=== PATIENT | male | born 1955 | race Caucasian/White ===

== ENCOUNTER 2022-07-17 07:05 | Emergency (ER) | payer MEDICARE, SELFPAY ==
[2022-07-17 07:13] VITALS: BP 200/92; PULSE 61; RESP 20; TEMP 36.6; O2SAT 98; BMI 24.4
--- NOTE | 2022-07-17 07:19 | ED_ITS ---
HPI - Abdominal Pain General Chief Complaint: Abdominal Pain Stated Complaint: BLOOD IN STOOL Time Seen by Provider: 07/17/22 07:19 Source: patient Mode of arrival: walk-in Limitations: no limitations History of Present Illness HPI narrative: Patient presents to emergency department complaining of suprapubic pain and cramping. He states he noticed some suprapubic pain and cramping last night. Patient has a history of bladder cancer status post surgeries for which he has urinary retention and he self At home. He waited until the morning because he thought that he had to urinate to self catheter himself And he still continued to have the cramping so he used the bathroom and had bright red blood per rectum. She states tissue was completely saturated at least if he had cut his hand and put a tissue on it. He denies any dizziness, palpitations, or weakness. He denies any chest pain, shortness of breath. Denies any fever, chills, or cough. He has never had a colonoscopy. He does have a history of hemorrhoids but has never had bleeding per rectum. He has not taking anything at home. He does not take any blood thinners. He denies any nausea, or vomiting. Related Data Home Medications Medication Instructions Recorded Confirmed folic acid 1 mg tablet 1 mg PO DAILY 07/17/22 07/17/22 levothyroxine 88 mcg tablet 88 mcg PO DAILY 07/17/22 07/17/22 rosuvastatin 10 mg tablet 10 mg PO DAILY 07/17/22 07/17/22 Previous Rx's Medication Instructions Recorded lisinopril 20 mg tablet 20 mg PO DAILY #30 tabs 07/17/22 Allergies Allergy/AdvReac Type Severity Reaction Status Date / Time No Known Drug Allergies Allergy Verified 07/17/22 07:12 Review of Systems ROS Status of ROS 10 or more systems reviewed and unremarkable except as noted in history and below [facility] Medical History (Updated 07/17/22 @ 11:48 by Adeola Olmstead MD) Social History Smoking status: Former smoker Exam Narrative Exam Narrative: Nurses notes and vital signs reviewed and patient is not hypoxic. General: Nontoxic, Well-appearing and in no apparent distress. Skin: Warm, dry, no pallor noted. No Rash Head: Normocephalic, atraumatic. Neck: Supple, non-tender. Eye: Pupils are equal, round and EOMI. No scleral icterus. Ears, Nose, Mouth, and Throat: TM clear, no posterior oropharynx erythema or nasal mucosal hypertrophy, uvula is mid-line Oral mucosa is moist Cardiovascular: Regular Rate and Rhythm without murmur, gallop or rub. Respiratory: No accessory muscle use or respiratory distress. Lungs are clear to auscultation, no wheezing, rales or rhonchi Chest Wall: no tenderness Back: No midline thoracic or lumbar vertebral tenderness. No CVA tenderness Musculoskeletal: normal ROM, no calf or popliteal tenderness, no lower extremity edema/swelling GI: Abdomen is soft, non-distended. Normal bowel sounds. No masses appreciated. mild llq tenderness to palpation. No rebound, guarding, or rigidity noted. Neurological: A&O x4. No cranial nerve dysfunction observed. No truncal ataxia. Moves all extremities. Sensation intact. Psychiatric: Cooperative and interactive. Normal mood and affect. Constitutional Vital Signs - 24 hr 07/17/22 07:13 Temperature 97.9 F Pulse Rate [Monitor] 61 Respiratory Rate 20 Blood Pressure [Right Arm] 200/92 H Pulse Oximetry 98 Oxygen Delivery Method Room Air Course Vital Signs Vital signs: Vital Signs Temperature 97.9 F 07/17/22 07:13 Pulse Rate 61 07/17/22 07:13 Respiratory Rate 20 07/17/22 07:13 Blood Pressure 200/92 H 07/17/22 07:13 Pulse Oximetry 98 07/17/22 07:13 Oxygen Delivery Method Room Air 07/17/22 07:13 Temperature 97.9 F 07/17/22 07:13 Pulse Rate 61 07/17/22 07:13 Respiratory Rate 20 07/17/22 07:13 Blood Pressure 200/92 H 07/17/22 07:13 Pulse Oximetry 98 07/17/22 07:13 Oxygen Delivery Method Room Air 07/17/22 07:13 MDM - Abdominal Pain MDM Narrative Medical decision making narrative: Discussed with patient the need to follow through with a colonoscopy. Blood work and CT scan were ordered. pt is not requiring any analgesics at this time. he has declined. . Discussed with patient. Patient is aware that he has an aneurysm. He states she's never had high blood pressure before and does not take any thing for hypertension. He will be started on lisinopril 20 mg by mouth daily and is advised follow-up with primary care doctor to have his blood pressure rechecked and discuss his aneurysm. Patient is also advised to follow up with primary care doctor and referral for surgeon or gastrointestinal for a colonoscopy. At this time the patient is without objective evidence of an acute process requiring hospitalization or inpatient management. The patient has remained hemodynamically stable. No additional indication for emergent studies at this time. I answered all questions. Discussed discharge instructions including standard anticipatory guidance and what should prompt a return to the emergency department, including if they get worse are not getting better or develops any new or concerning symptoms. I've given them specific time frame in which to follow-up, and who to follow-up with. The patient demonstrates understanding. Patient is nontoxic and stable for discharge with outpatient follow-up. This note was created with the assistance of a speech recognition program. Although the intention is to generate documents that actually reflects the content of the visit, no guarantees can be provided that every mistake has been identified and corrected by editing. Differential Diagnosis Differential diagnosis: Likely abdominal pain, diverticulitis, pancreatitis and small bowel obstruction Lab Data Attestation: I reviewed the patient's lab results. Labs: Lab Results 07/17/22 07/17/22 07/17/22 Range/Units 07:28 08:10 08:25 WBC 6.5 (4.0-11.0) 10^3/uL RBC 4.53 L (4.70-6.10) 10^6/uL Hgb 14.5 (14.0-18.0) g/dL Hct 43.1 (42.0-54.0) % MCV 95.1 H (80.0-94.0) fL MCH 32.0 (25.9-34.0) pg MCHC 33.6 (29.9-35.2) g/dL RDW 13.6 (11.0-15.0) % Plt Count 231 (150-450) 10^3/uL MPV 10.4 (9.5-13.5) fL Neut % (Auto) 52.3 (43.0-75.0) % Lymph % (Auto) 35.5 (20.5-60.0) % [place] % (Auto) 9.2 (1.7-12.0) % Eos % (Auto) 2.2 (0.9-7.0) % Baso % (Auto) 0.6 (0.2-2.0) % Neut # (Auto) 3.4 (1.4-6.5) 10^3/uL Lymph # (Auto) 2.3 (1.2-3.8) 10^3/uL [place] # (Auto) 0.6 (0.3-0.8) 10^3/uL Eos # (Auto) 0.1 (0.0-0.7) 10^3/uL Baso # (Auto) 0.0 (0.0-0.1) 10^3/uL Abs Immat Gran (auto) 0.01 (0.00-0.03) 10^3/uL Imm/Tot Granulo (auto) 0.2 (0.0-0.5) % Sodium 138 (136-145) mmol/L Potassium 4.2 (3.5-5.1) mmol/L Chloride 102 (98-107) mmol/L Carbon Dioxide 25.9 (21.0-32.0) mmol/L Anion Gap 14.3 BUN 16.0 (7.0-18.0) mg/dL Creatinine 0.96 (0.70-1.30) mg/dL Est GFR ( Amer) >60 (>=60) Est GFR (Non-Af Amer) >60 (>=60) BUN/Creatinine Ratio 16.7 Glucose 102 (74-106) mg/dL Lactate 1.9 (0.4-2.0) mmol/L Calcium 9.2 (8.5-10.1) mg/dL Total Bilirubin 0.5 (0.2-1.0) mg/dL AST 18 (15-37) U/L ALT 29 (16-63) U/L Alkaline Phosphatase 98 (46-116) U/L Total Protein 7.6 (6.4-8.2) g/dL Albumin 3.5 (3.4-5.0) g/dL Globulin 4.1 g/dL Albumin/Globulin Ratio 0.9 Lipase 271.0 (73.0-393.0) U/L Urine Color Lt. yellow (YELLOW) Urine Clarity Clear (CLEAR) Urine pH 6.0 (5.0-9.0) Ur Specific [place] <=1.005 A (1.005-1.025) Urine Protein Negative (NEG/TRACE) mg/dL Urine Glucose (UA) Negative (NEGATIVE) mg/dL Urine Ketones Negative (NEGATIVE) mg/dL Urine Occult Blood Moderate A (NEGATIVE) Urine Nitrite Negative (NEGATIVE) Urine Bilirubin Negative (NEGATIVE) Urine Urobilinogen 0.2 (0.2-1.0) EU/dL Ur Leukocyte Esterase Large A (NEGATIVE) Urine RBC 10-20 A (0-2) #/HPF Urine WBC 75-100 A (NONE SEEN) #/HPF Ur Squamous Epith Cells Few A (NONE/RARE) #/LPF Ur Transition Epith Cell Few A (NONE SEEN) #/LPF Urine Crystals None seen (None Seen) #/HPF Urine Bacteria Large A (NONE SEEN) #/HPF Urine Casts None seen (NONE SEEN) #/LPF Urine Mucus None seen (NONE SEEN) Ur Culture Indicated? Yes ECG Data Attestation: I personally reviewed and interpreted this ECG as follows: (EKG interpretation: Emergency Department physician interpretation. Normal sinus rhythm [id number]. Normal axis, RBBB normal intervals and no ST segment elevation or depression.) Discharge Plan Discharge Chief Complaint: Abdominal Pain Clinical Impression: Aneurysm of abdominal aorta, Hematochezia, Hypertension Patient Disposition: Home, Self-Care Time of Disposition Decision: 11:48 Mode of Transportation: Private Vehicle Prescriptions / Home Meds: New lisinopril 20 mg tablet 20 mg PO DAILY Qty: 30 0RF No Action folic acid 1 mg tablet 1 mg PO DAILY rosuvastatin 10 mg tablet 10 mg PO DAILY levothyroxine 88 mcg tablet 88 mcg PO DAILY Instructions: Rectal Bleeding (ED), Hypertension (ED) Additional Instructions: Take the medication as instructed. Follow-up with primary care doctor to discuss a referral with gastrointestinal for surgery for colonoscopy. 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 Return to the emergency department with symptoms consistent discussed. Stand Alone Forms: Portal Instructions Referrals: MARY SANTOS [Primary Care Provider] - 1 week Jamil Hudson MD [Physician] - 1 week
[2022-07-17 07:29] VITALS: PULSE 59
[2022-07-17 07:44] LABS: Basophils Percent Auto 0.6 % (0.2-2.0); Eosinophils Absolute Auto 0.1 10^3/uL (0.0-0.7); Eosinophils Percent Auto 2.2 % (0.9-7.0); Hematocrit 43.1 % (42.0-54.0); Hemoglobin 14.5 g/dL (14.0-18.0); Immature Granulocytes Abs Auto 0.01 10^3/uL (0.00-0.03); Immature Granulocytes Pct Auto 0.2 % (0.0-0.5); Lymphocytes Absolute Auto 2.3 10^3/uL (1.2-3.8); Lymphocytes Percent Auto 35.5 % (20.5-60.0); Mean Corpuscular HGB Conc 33.6 g/dL (29.9-35.2); Mean Corpuscular Volume 95.1 fL (80.0-94.0); Mean Platelet Volume 10.4 fL (9.5-13.5); Monocytes Absolute Auto 0.6 10^3/uL (0.3-0.8); Monocytes Percent Auto 9.2 % (1.7-12.0); Neutrophils Absolute Auto 3.4 10^3/uL (1.4-6.5); Neutrophils Percent Auto 52.3 % (43.0-75.0); Platelet Count 231 10^3/uL (150-450); Red Blood Count 4.53 10^6/uL (4.70-6.10); Red Cell Distribution Width 13.6 % (11.0-15.0); White Blood Count 6.5 10^3/uL (4.0-11.0)
[2022-07-17 07:52] LABS: Alanine Aminotransferase 29 U/L (16-63); Albumin Globulin Ratio 0.9; Albumin Level 3.5 g/dL (3.4-5.0); Alkaline Phosphatase 98 U/L (46-116); Anion Gap 14.3; Aspartate Amino Transferase 18 U/L (15-37); BUN Creatinine Ratio 16.7; Bilirubin Total 0.5 mg/dL (0.2-1.0); Calcium 9.2 mg/dL (8.5-10.1); Carbon Dioxide 25.9 mmol/L (21.0-32.0); Chloride 102 mmol/L (98-107); Estimated GFR (African America >60 (>=60); Estimated GFR (Non-African Ame >60 (>=60); Globulin 4.1 g/dL; Glucose 102 mg/dL (74-106); Potassium 4.2 mmol/L (3.5-5.1); Sodium 138 mmol/L (136-145); Total Protein 7.6 g/dL (6.4-8.2)
[2022-07-17 07:55] LABS: Lactate/Lactic Acid 1.9 mmol/L (0.4-2.0)
[2022-07-17] MEDS: 0.9 % SODIUM CHLORIDE 1,000 ML 100 ML IV (08:12)
[2022-07-17 08:23] LABS: Bilirubin Urine NEGATIVE (NEGATIVE); Blood Urine MODERATE (NEGATIVE); Clarity Urine CLEAR (CLEAR); Color Urine LT. YELLOW (YELLOW); Glucose Urine UA NEGATIVE (NEGATIVE); Ketones Urine NEGATIVE (NEGATIVE); Leukocyte Esterase Urine LARGE (NEGATIVE); Nitrite Urine NEGATIVE (NEGATIVE); Protein Urine NEGATIVE (NEG/TRACE); Specific Gravity Urine <=1.005 (1.005-1.025); Urobilinogen Urine 0.2 EU/dL (0.2-1.0)
[2022-07-17 08:25] LABS: Urine Microscopic Indicated YES
[2022-07-17 08:30] LABS: Bacteria Urine LARGE #/HPF (NONE SEEN); Mucus Urine NONE SEEN (NONE SEEN); WBC Urine 75-100 #/HPF (NONE SEEN)
[2022-07-17 08:31] LABS: Cast Seen? NONE SEEN #/LPF (NONE SEEN); Crystals Seen? None Seen #/HPF (None Seen); Squamous Epithelial Cell Urine FEW #/LPF (NONE/RARE); Transitional Epi Cells Urine FEW #/LPF (NONE SEEN); Urine Culture Indicated YES
--- NOTE | 2022-07-17 09:30 | CT_ITS ---
[address] [address] Patient Name: LASHAWN MONTENEGRO MRN: [id number] date: 1955 Sex: M Assigned Patient Location: ER Current Patient Location: ER Accession/Order Number: [id number] Exam Date: 07/17/2022 09:40 Report Date: 07/17/2022 10:17 At the request of: JASON WILDER Procedure: CT abdomen pelvis w con CT abdomen pelvis w con, 07/17/2022 9:40 AM EDT INDICATION: Abdominal pain. Blood in stool. COMPARISON: CT scan of the abdomen and pelvis 06/15/2020 TECHNIQUE: Axial images of the abdomen and pelvis were obtained after the administration of IV contrast with multiphase imaging. Multiplanar reformatted images were generated and reviewed as needed. Dose reduction techniques were achieved by using automated exposure control and/or adjustment of mA and/or kV according to patient size and/or use of iterative reconstruction technique. FINDINGS: Hypoventilatory change at the lung bases bilaterally. Subsegmental atelectasis/scar within the lingula. No effusion. The liver, gallbladder, pancreas, spleen and adrenals are unremarkable. Symmetric nephrograms without evidence of obstruction. Bilateral nonobstructing nephrolithiasis. No ureteral or urinary bladder calculi. Mild diffuse urinary bladder wall thickening secondary to muscular hypertrophy. No significant perivesicular fat stranding. TURP defect within a normal-sized prostate gland. Delayed imaging demonstrates normal course and caliber of the distal ureter bilaterally with visualization of bilateral ureteral jets and prompt emptying into the urinary bladder. Stable aneurysmal dilatation infrarenal abdominal aorta 3.5 cm. No bowel obstruction or acute focal inflammation. Normal appendix. No active extravasation of contrast visualized within the bowel lumen. The SMA and SMV are patent. No pneumatosis, pneumoperitoneum or ascites. No mesenteric or retroperitoneal lymphadenopathy. No acute fracture or dislocation. IMPRESSION: 1. No bowel obstruction or acute inflammation. No CT findings of active gastrointestinal hemorrhage. 2. Bilateral nonobstructing nephrolithiasis. 3. Stable 3.5 cm infrarenal abdominal aortic aneurysm. Electronically authenticated by: BARB INIGUEZ Date: 07/17/2022 10:17
[2022-07-17] MEDS: CEFTRIAXONE 1,000 MG in 0.9 % SODIUM CHLORIDE 50 ML 100 MG IV (10:34)
[2022-07-17] MEDS: LISINOPRIL 10 MG TABLET 20 MG PO (10:38)
--- NOTE | 2022-07-17 12:02 | ECG_ITS ---
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
[2022-07-17 12:06] VITALS: BP 190/81
== END 2022-07-17 12:07 | disposition home or self-care (01) ==
PROVIDERS: Emergency Provider Emergency Medicine; PCP Family Medicine
DX: I71.40 Abdominal aortic aneurysm, without rupture, unspecified (principal); I10 Essential (primary) hypertension; K92.1 Melena; Z85.51 Personal history of malignant neoplasm of bladder; R33.9 Retention of urine, unspecified; Z79.899 Other long term (current) drug therapy; Z79.890 Hormone replacement therapy; Z87.891 Personal history of nicotine dependence
CPT/HCPCS: 36415; 74177; 80053; 81003; 81015; 83605; 83690; 85025; 87086; 87150; 87186; 93005; 96374; 99285; Q9967

== ENCOUNTER 2022-07-19 00:54 | Emergency (ER) | payer MEDICARE, SELFPAY ==
[2022-07-19 00:57] VITALS: BP 173/93; PULSE 66; RESP 32; O2SAT 98; BMI 24.5
--- NOTE | 2022-07-19 01:29 | XR_ITS ---
The [place] [id number] Patient Name: LASHAWN MONTENEGRO MRN: [id number] date: 1955 Sex: M Assigned Patient Location: ER Current Patient Location: ER Accession/Order Number: [id number] Exam Date: 07/19/2022 01:43 Report Date: 07/19/2022 02:45 At the request of: ANURADHA CARSON Procedure: XR chest 1V EXAM: XR chest 1V HISTORY: shortness breath COMPARISON: CT chest 02/07/2022 TECHNIQUE: Single frontal view chest x-ray FINDINGS: Mild bilateral perihilar airway wall thickening. Mild bilateral centrilobular emphysema. No lung consolidation, large pleural effusions, pneumothorax, or acute bony abnormality. Cardiac size is unremarkable. IMPRESSION: Mild bilateral perihilar airway wall thickening reflect sequela of reactive airway inflammation or bronchitis in the proper clinical setting. Correlate clinically. Otherwise, no radiographic evidence for acute chest abnormality. Electronically authenticated by: NIKHIL BHAGAT Date: 07/19/2022 02:45
--- NOTE | 2022-07-19 01:31 | ECG_ITS ---
[facility] Test Date: 2022-07-19 Pat Name: LASHAWN MONTENEGRO Department: Room: - Gender: Male Energy Director: : 1955 Requested By: MARY SANTOS Order Number: [id number] Reading MD: EMELY KIMBROUGH Measurements Intervals [place] Rate: 58 P: 56 AR: 148 QRS: 60 QRSD: 124 T: 58 QT: 430 QTc: 428 Interpretive Statements 1100 Sinus rhythm 2450 Right bundle branch block 3514 Cannot rule out lateral myocardial infarction, age undetermined 9115 abnormal ECG Electronically Signed On 07-19-2022 7:18:34 EDT by EMELY KIMBROUGH
[2022-07-19 01:59] VITALS: PULSE 58
[2022-07-19 02:00] VITALS: O2SAT 100
[2022-07-19] MEDS: 0.9 % SODIUM CHLORIDE 1,000 ML 1000 ML IV (07:10)
--- NOTE | 2022-07-19 08:31 | CT_ITS ---
The [address] [address] Patient Name: LASHAWN MONTENEGRO MRN: [id number] date: 1955 Sex: M Assigned Patient Location: ER Current Patient Location: Accession/Order Number: [id number] Exam Date: 07/19/2022 08:47 Report Date: 07/19/2022 09:24 At the request of: JASON WILDER Procedure: CT angio chest EXAM: CT angio chest HISTORY: dyspnea, dimer COMPARISON: 03/10/2011 and radiograph of earlier today. TECHNIQUE: CT chest with intravenous contrast was performed with timing for the evaluation for pulmonary arteries. Multiplanar reformats were performed. MIP (maximum intensity projection) images or 3D post processing was performed. Dose reduction techniques were achieved by using automated exposure control and/or adjustment of mA and/or kV according to patient size and/or use of iterative reconstruction technique. FINDINGS: Lungs: No consolidation, mass, or effusion. Opacities of the lung bases have appearance most suggestive of atelectasis. Mild emphysema. Airways: Normal. Mediastinum: No adenopathy. Aorta: No aneurysm. Atherosclerotic disease is demonstrated. Cardiac: Coronary artery calcifications are demonstrated. Normal size. Pulmonary vasculature: Diagnostic opacification of the pulmonary arteries without evidence of pulmonary embolus. Borderline enlargement of the main pulmonary artery. Bones: There are degenerative findings without acute bony abnormality. Findings are suggestive of decreased bone density. Axilla: No adenopathy. Thyroid gland: No abnormality demonstrated on provided imaging. Soft tissues: Diminutive or absent. Upper abdomen: Unremarkable. Additional findings: None. IMPRESSION: 1. No evidence of pulmonary embolus or acute intrathoracic abnormality. 2. Unchanged emphysema. Electronically authenticated by: AUBREY WAITE Date: 07/19/2022 09:24
--- NOTE | 2022-07-19 10:00 | ED_ITS ---
HPI - SOB/Dyspnea General Chief Complaint: Shortness of Breath/Dyspnea Stated Complaint: SOB Time Seen by Provider: 07/19/22 06:15 Source: patient Mode of arrival: Wheelchair Limitations: no limitations Related Data Home Medications Medication Instructions Recorded Confirmed folic acid 1 mg tablet 1 mg PO DAILY 07/17/22 07/17/22 levothyroxine 88 mcg tablet 88 mcg PO DAILY 07/17/22 07/17/22 rosuvastatin 10 mg tablet 10 mg PO DAILY 07/17/22 07/17/22 Previous Rx's Medication Instructions Recorded lisinopril 20 mg tablet 20 mg PO DAILY #30 tabs 07/17/22 albuterol sulfate 90 mcg/actuation 2 inh inhalation Q4H PRN shortness 07/19/22 aerosol inhaler of breath or wheezing #8.5 grams Allergies Allergy/AdvReac Type Severity Reaction Status Date / Time No Known Drug Allergies Allergy Verified 07/17/22 07:12 [facility] Medical History (Updated 07/19/22 @ 09:46 by Adeola Olmstead MD) Social History Smoking status: Former smoker Exam Constitutional Vital Signs - 24 hr 07/19/22 00:57 07/19/22 02:00 Pulse Rate [Monitor] 66 Respiratory Rate 32 H Blood Pressure [Right Arm] 173/93 H Pulse Oximetry 98 100 Oxygen Delivery Method Room Air Room Air Course Vital Signs Vital signs: Vital Signs Pulse Rate 66 07/19/22 00:57 Respiratory Rate 32 H 07/19/22 00:57 Blood Pressure 173/93 H 07/19/22 00:57 Pulse Oximetry 98 07/19/22 00:57 Oxygen Delivery Method Room Air 07/19/22 00:57 Pulse Rate 66 07/19/22 00:57 Respiratory Rate 32 H 07/19/22 00:57 Blood Pressure 173/93 H 07/19/22 00:57 Pulse Oximetry 100 07/19/22 02:00 Oxygen Delivery Method Room Air 07/19/22 02:00 MDM - SOB/Dyspnea MDM Narrative Medical decision making narrative: Patient signed out to me by Dr. Gomez awaiting CT scan. Patient came in complaining of shortness of breath last night at around midnight by the time he was seen by Dr. Gomez all the symptoms had resolved. He states he had this several months ago and it went away. He denied any cough. He states he was a smoker and thinks he could've been told before that he had chronic obstructive pulmonary disease but has never been on any inhalers. Patient has an appointment with his primary care doctor on Thursday. Call of the laboratory studies and radiologic study results were discussed with the patient. Patient will be given a prescription for an albuterol inhaler. stated that he is currently taking Bactrim for the urinary tract infection. At this time the patient is without objective evidence of an acute process requiring hospitalization or inpatient management. The patient has remained hemodynamically stable. No additional indication for emergent studies at this time. I answered all questions. Discussed discharge instructions including standard anticipatory guidance and what should prompt a return to the emergency department, including if they get worse are not getting better or develops any new or concerning symptoms. I've given them specific time frame in which to follow-up, and who to follow-up with. The patient demonstrates understanding. Patient is nontoxic and stable for discharge with outpatient follow-up. This note was created with the assistance of a speech recognition program. Although the intention is to generate documents that actually reflects the content of the visit, no guarantees can be provided that every mistake has been identified and corrected by editing. Differential Diagnosis Differential diagnosis: Likely acute exacerbation of chronic obstructive airways disease, congestive heart failure, community acquired pneumonia and pulmonary embolism Lab Data Attestation: I reviewed the patient's lab results. ECG Data Attestation: I personally reviewed and interpreted this ECG as follows: Discharge Plan Discharge Chief Complaint: Shortness of Breath/Dyspnea Clinical Impression: Emphysema lung Patient Disposition: Home, Self-Care Time of Disposition Decision: 09:45 Condition: Good Mode of Transportation: Private Vehicle Prescriptions / Home Meds: New albuterol sulfate 90 mcg/actuation HFA aerosol inhaler 2 inh inhalation Q4H PRN (Reason: shortness of breath or wheezing) Qty: 8.5 0RF No Action folic acid 1 mg tablet 1 mg PO DAILY rosuvastatin 10 mg tablet 10 mg PO DAILY levothyroxine 88 mcg tablet 88 mcg PO DAILY lisinopril 20 mg tablet 20 mg PO DAILY Qty: 30 0RF Instructions: Emphysema (ED) Stand Alone Forms: Portal Instructions Referrals: MARY SANTOS [Primary Care Provider] - 1 week
== END 2022-07-19 10:06 | disposition home or self-care (01) ==
PROVIDERS: Emergency Provider Emergency Medicine; PCP Family Medicine
DX: J43.9 Emphysema, unspecified (principal); Z79.899 Other long term (current) drug therapy; Z79.890 Hormone replacement therapy; Z87.891 Personal history of nicotine dependence
CPT/HCPCS: 71045; 71275; 93005; 99285; Q9967

== ENCOUNTER 2022-11-14 14:33 | Outpatient (OUT) | payer MEDICARE, SELFPAY ==
[2022-11-14 15:09] LABS: Basophils Percent Auto 0.5 % (0.2-2.0); Eosinophils Absolute Auto 0.2 10^3/uL (0.0-0.7); Eosinophils Percent Auto 2.7 % (0.9-7.0); Hematocrit 41.4 % (42.0-54.0); Hemoglobin 14.1 g/dL (14.0-18.0); Immature Granulocytes Abs Auto 0.02 10^3/uL (0.00-0.03); Immature Granulocytes Pct Auto 0.3 % (0.0-0.5); Lymphocytes Absolute Auto 2.9 10^3/uL (1.2-3.8); Lymphocytes Percent Auto 38.8 % (20.5-60.0); Mean Corpuscular HGB Conc 34.1 g/dL (29.9-35.2); Mean Corpuscular Hemoglobin 33.7 pg (25.9-34.0); Mean Corpuscular Volume 98.8 fL (80.0-94.0); Mean Platelet Volume 10.9 fL (9.5-13.5); Monocytes Absolute Auto 0.6 10^3/uL (0.3-0.8); Neutrophils Absolute Auto 3.7 10^3/uL (1.4-6.5); Neutrophils Percent Auto 49.7 % (43.0-75.0); Platelet Count 203 10^3/uL (150-450); Red Blood Count 4.19 10^6/uL (4.70-6.10); Red Cell Distribution Width 14.1 % (11.0-15.0); White Blood Count 7.4 10^3/uL (4.0-11.0)
[2022-11-14 15:45] LABS: Alanine Aminotransferase 27 U/L (16-63); Albumin Level 3.7 g/dL (3.4-5.0); Alkaline Phosphatase 96 U/L (46-116); Anion Gap 12.1; Aspartate Amino Transferase 15 U/L (15-37); Bilirubin Total 0.5 mg/dL (0.2-1.0); Carbon Dioxide 29.3 mmol/L (21.0-32.0); Chloride 103 mmol/L (98-107); Chol HDL Ratio 2.3; Cholesterol 154 mg/dL (<=200); Estimated GFR (African America >60 (>=60); Estimated GFR (Non-African Ame >60 (>=60); Globulin 3.8 g/dL; Glucose 96 mg/dL (74-106); HDL Cholesterol 66 mg/dL (40-60); Potassium 4.4 mmol/L (3.5-5.1); Sodium 140 mmol/L (136-145); Thyroid Stimulating Hormone 1.378 uIU/mL (0.358-3.740); Total Protein 7.5 g/dL (6.4-8.2); Triglycerides 94 mg/dL (<=150); VLDL CHOLESTEROL 18.8 mg/dL
== END 2022-11-14 14:34 | disposition home or self-care (01) ==
LOC: LAB 14:34
PROVIDERS: PCP Family Medicine; Visit Provider Nurse Practitioner Acute Care
DX: I71.40 Abdominal aortic aneurysm, without rupture, unspecified (principal); E03.8 Other specified hypothyroidism
CPT/HCPCS: 36415; 80053; 80061; 84443; 85025

== ENCOUNTER 2022-12-02 10:46 | Outpatient (OUT) | payer MEDICARE, SELFPAY | END 2022-12-02 10:47 | disposition home or self-care (01) | LOC: LAB 10:53 | PROVIDERS: PCP Family Medicine | DX: R30.9 Painful micturition, unspecified (principal) | CPT/HCPCS: 87086 ==

== ENCOUNTER 2023-11-20 07:35 | Outpatient (OUT) | payer MEDICARE, SELFPAY ==
--- OUTSIDE RECORDS SUMMARY | 2023-11-20 07:39 | XMS_ITS | CCD ---
Author Organization [facility] Care Team Providers [facility] F[facility] Specialist Name Role Phone Mary Santos Primary Care Provider [phone] HUEY ALVARADO Admitting Unavailable HUEY ALVARADO Attending Unavailable MARY SANTOS Primary Care Unavailable MD Huey Alvarado Attending Provider JACEK, DR STEWART Consulting Unavailable MARKER, DR LAM Attending Unavailable MARKER, DR LAM Admitting Unavailable TOM, DR HERNANDEZ Primary Care Unavailable MARKER, DR LAM Consulting Unavailable LORIE DOUGLAS Consulting Unavailable ANURADHA CARSON Attending Unavailable TOM, DR HERNANDEZ Primary Care Unavailable ANURADHA CARSON Admitting Unavailable ANURADHA CARSON Consulting Unavailable CRISTY, DR PHIL Moseley Consulting Unavailabl e DIONNEECK, DR PHIL Moseley Attending Unavailabl e REINECK, DR PHIL Moseley Admitting Unavailabl e TOM, DR HERNANDEZ Primary Care Unavailable FARA, DR STEFFEN Lawton Consulting Unavailable CAITIE JOYA Consulting Unavailable JACEK, DR STEWART Attending Unavailable TOM, DR HERNANDEZ Primary Care Unavailable JACEK, DR STEWART Admitting Unavailable FARA, DR STEFFEN Lawton Consulting Unavailable CAROLE BENNETT Attending Unavailable CAROLE BENNETT Admitting Unavailable TOM, DR HERNANDEZ Primary Care Unavailable CAROLE BENNETT Consulting Unavailable MD Eldon Castrejon Attending Provider [phone] MD Mary Santos Primary Care Provider [phone] MARGARITO GARIBAY Attending Unavailable Eldon Castrejon Admitting Unavailable Eldon Castrejon Attending Unavailable Mary Santos Primary Care Unavailable Huey Alvarado Admitting Unavailable Huey Alvarado Attending Unavailable Mary Santos Primary Care Unavailable Steffen Ng Consulting Unavailable Huey Alvarado Attending Unavailable Huey Alvarado Admitting Unavailable MARY SANTOS Primary Care Unavailable Huey Alvarado Attending Unavailable MARY SANTOS Primary Care Unavailable Huey Alvarado Admitting Unavailable Huey Alvarado Attending Unavailable Huey Alvarado Admitting Unavailable MARY SANTOS Primary Care Unavailable Huey Alvarado Attending Unavailable Huey Alvarado Admitting Unavailable MARY SANTOS Primary Care Unavailable Huey Alvarado Attending Unavailable MARY SANTOS Primary Care Unavailable Huey Alvarado Admitting Unavailable Mary Santos MD Primary Care Provider Mary Santos MD Unavailable MARY SANTOS Attending Unavailable MARY SANTOS Attending Unavailable MARY SANTOS Attending Unavailable Allergies Allergy Classification Reported Allergen(s) Allergy Type Date of Onset Reaction(s) Facility Unclassified (1 source) Seasonal allergy Propensity to adverse reactions to substance 1 [facility] (2 sources) Octacosanol Drug Intolerance 1 [facility] Medications Current Medications Medication Drug Class(es) Dates Sig (Normalized) Sig (Original) [id number] actuat albuterol 0.09 mg/actuat metered dose inhaler (2 sources) beta2-Adrenergic Agonist Start: 07-19-2022 take 2 puff(s) by mouth every four hours as needed for wheezing albuterol HFA 90 mcg/act inhaler INHALE 2 PUFFS BY MOUTH EVERY 4 HOURS NEEDED FOR SHORTNESS OF BREATH OR WHEEZING 07/19/2022 Active aspirin 81 mg delayed release oral tablet (4 sources) Platelet Aggregation Inhibitor, Nonsteroidal Anti-inflammatory Drug Start: 09-30-2022 take 1 tablet by mouth once daily Aspirin (Aspir-81) 81 mg Tablet,Delayed Release (Dr/Ec) Active 81 MG PO Daily September 30, 2022 12:00am take 1 tablet by mouth once mickey y aspirin 81 MG chewable tablet Take 81 mg by mouth daily 0 Active calcium chloride 0.0014 meq/ml / potassium chloride 0.004 meq/ml / sodium chloride 0.103 meq/ml / sodium lactate 0.028 meq/ml injectable solution (1 source) Start: 07-23-2020 lactated ringe rs infusion ferrous sulfate (1 source) Ferrous Sulfate (IRON PO) Take by mouth 0 Active fexofenadine (1 source) Histamine-1 Receptor Antagonist FEXOFENADINE HCL PO Take by mouth 0 Active folic acid 1 mg oral tablet (4 sources) Start: 05-11-2023 take 1 tablet by mouth once daily folic acid (Folvite) 1 MG tablet Indications: Vitamin B12 deficiency Take 1 tablet (1,000 mcg) by mouth Daily 100 tablet 3 05/11/2023 Active Start: 09-30-2022 take 1 mg by mouth once daily Folic Acid Active 1 MG PO Daily September 30, 2022 12:00am FOLIC ACID PO Ta ke by mouth 0 Active folic acid 0.4 mg / vitamin b12 1 mg sublingual tablet (1 source) Vitamin B12 Start: 09-30-2022 Vitamin D06-Enbhd Acid Active 1 LOZENGE SUBLINGUAL Daily September 30, 2022 12:00am hydroCHLOROthiazide 25 mg oral tablet (2 sources) Thiazide Diuretic Start: 11-10-2023 End: 11-09-2024 take 1 tablet by mouth once daily hydroCHLOROthiazide (HYDRODiuril) 25 MG tablet Indications: Benign essential hypertension (CMS/HCC) Take 1 tablet (25 mg) by mouth Daily 30 tablet 11 11/10/2023 11/09/2024 Active 1 ml HYDROmorphone hydrochloride 1 mg/ml cartridge (2 sources) Opioid Agonist Start: 07-23-2020 HYDROmorphone (DILAUDID) injection 0.5 mg Start: 07-23-2020 HYDROmorphone (DILAUDID) injection 0.25 mg hyoscyamine sulfate 0.125 mg sublingual tablet (1 source) Start: 07-23-2020 End: 07-28-2020 Hyoscyamine Sulfate SL (LEVSIN/SL) 0.[address] 0.125 mLs under the tongue 3 times daily as needed (bladder spasms) 120 each 0 07/23/2020 07/28/2020 Active levothyroxine sodium 0.088 mg oral tablet (4 sources) l-Thyrox ine Start: 10-19-2023 take 1 tablet by mouth once daily before mealtime levothyroxine (Synthroid, Levoxyl) 88 MCG tablet Indications: Postablative hypothyroidism (CMS/HCC) TAKE 1 TABLET BY MOUTH ONCE DAILY IN THE MORNING BEFORE MEAL(S) 90 tablet 10/19/2023 Active Start: 09-30-2022 take 88 ug by mouth once daily Levothyroxine Active 88 MCG PO Daily September 30, 2022 12:00am LEVOTHYROXINE SO DIUM PO Take 88 mcg by mouth 0 Active lisinopril 20 mg oral tablet (4 sources) Angiotensin Converting Enzyme Inhibitor Start: 11-10-2023 End: 02-08-2024 take 2 tablets by mouth once daily as needed for hypertension lisinopril 20 MG tablet Indications: Benign essential hypertension (CMS/HCC) Take 2 tablets (40 mg) by mouth Daily as needed (Hypertension) 180 tablet 11/10/2023 02/08/2024 Active End: 11-10-2023 take 1 tablet by mouth every twenty-four hours as needed lisinopril 20 MG tablet Take 1 tablet by mouth Daily as needed (Hypertension). 11/10/2023 Discontinued (Reorder) rosuvastatin calcium 10 mg oral tablet (4 sources) HMG-CoA Reductase Inhibitor Start: 12-11-2022 take 1 tablet by mouth in the morning rosuvastatin (Crestor) 10 MG tablet Indications: Carotid artery disease, unspecified laterality, unspecified type (CMS/HCC) Take 1 tablet (10 mg) by mouth in the morning. 100 tablet 3 12/11/2022 Active Start: 09-30-2022 take 10 mg by mouth once daily Rosuvastatin Active 10 MG PO Daily September 30, 2022 12:00am take 1 tablet by wilfredo th once daily rosuvastatin (CRESTOR) 10 MG tablet Take 10 mg by mouth daily 0 Active vitamin b12 1 mg oral tablet (3 sources) Vitamin B12 take 1 tablet by mouth in the morning cyanocobalamin (Vitamin B-12) 1000 MCG tablet Take 1,000 mcg by mouth in the morning. Active Cyanocobalamin ( VITAMIN B 12 PO) Take by mouth 0 Active Completed/Discontinued Medications Medication Drug Class(es) Dates Sig (Normalized) Sig (Original) FLUTICASONE PROPIONATE, INHAL, IN (1 source) End: 07-23-2020 FLUTICASONE PROPIONATE, INHAL, IN Inhale into the lungs 0 07/23/2020 Discontinued (LIST CLEANUP) Problems Active Problems Problem Classification Problem Date Documented Date Episodic/Chronic Alcohol-related disorders (2 sources) Alcohol abuse; Translations: [Alcohol abuse, uncomplicated] Onset: 07-17-2022 07-17-2022 Chronic Aortic; peripheral; and visceral artery aneurysms (8 sources) Abdominal aortic aneurysm without rupture; Translations: [Abdominal aortic aneurysm, without rupture, unspecified (CMS/HCC)] Onset: 06-05-2021 11-10-2023 Chronic Cancer of bladder (6 sources) Malignant tumor of urinary bladder; Translations: [Malignant neoplasm of bladder, unspecified] Onset: 07-17-2022 11-10-2023 Chronic Cancer of bladder (1 source) Personal history of malignant neoplasm of bladder; Translations: [PERSONAL HX MALIG NEOPLASM BLADDER] Onset: 03-14-2022 Episodic Chronic obstructive pulmonary disease and bronchiectasis (4 sources) Pulmonary emphysema; Translations: [Emphysema, unspecified] Onset: 07-21-2022 11-10-2023 Chronic Complications of surgical procedures or medical care (2 sources) Postablative hypothyroidism; Translations: [Postprocedural hypothyroidism] Onset: 07-17-2022 07-17-2022 Chronic Conduction disorders (2 sources) Unspecified right bundle-branch block; Translations: [Unspecified right bundle-branch block] Onset: 11-14-2022 Chronic Essential hypertension (4 sources) Benign essential hypertension; Translations: [Essential (primary) hypertension] Onset: 12-23-2022 11-10-2023 Chronic Genitourinary symptoms and ill-defined conditions (4 sources) Retention of urine, unspecified; Translations: [RETENTION OF URINE UNSPECIFIED] Onset: 03-13-2022 Episodic Heart valve disorders (2 sources) Mitral valve disorder; Translations: [Rheumatic mitral valve disease, unspecified] Onset: 07-17-2022 07-17-2022 Chronic Malaise and fatigue (2 sources) Fatigue; Translations: [Chronic fatigue, unspecified] Onset: 07-17-2022 07-17-2022 Chronic Menopausal disorders (1 source) Hormone replacement therapy; Translations: [HORMONE REPLACEMENT THERAPY] Onset: 02-11-2022 Episodic Other aftercare (1 source) alf (current) use of aspirin; Translations: [PENITENTIARY CURRENT USE OF ASPIRIN] Onset: 02-11-2022 Episodic Other aftercare (1 source) Other terminal operator (current) drug therapy; Translations: [OTH PENITENTIARY CURRENT DRUG THERAPY] Onset: 02-11-2022 Episodic Other and ill-defined heart disease (2 sources) Heart disease; Translations: [Heart disease, unspecified] Onset: 07-17-2022 07-17-2022 Chronic Other circulatory disease (4 sources) Disorder of artery; Translations: [Disorder of arteries and arterioles, unspecified] Onset: 07-17-2022 11-10-2023 Chronic Other hematologic conditions (2 sources) Macrocytosis; Translations: [Other specified diseases of blood and blood-forming organs] Onset: 07-17-2022 07-17-2022 Chronic Other hematologic conditions (2 sources) Macrocytosis - no anemia; Translations: [Other specified diseases of blood and blood-forming organs] Onset: 07-17-2022 07-17-2022 Chronic Other lower respiratory disease (3 sources) Shortness of breath; Translations: [SHORTNESS OF BREATH] Onset: 02-07-2022 Episodic Other lower respiratory disease (1 source) Dyspnea, unspecified; Translations: [DYSPNEA UNSPECIFIED] Onset: 02-11-2022 Episodic Other upper respiratory disease (2 sources) Seasonal allergic rhinitis; Translations: [Other seasonal allergic rhinitis] Onset: 07-17-2022 07-17-2022 Chronic Peripheral and visceral atherosclerosis (4 sources) Atherosclerosis of aorta; Translations: [Atherosclerosis of aorta] Onset: 11-10-2023 11-10-2023 Chronic Residual codes; unclassified (1 source) Other specified postprocedural states; Translations: [OTH SPECIFIED POSTPROCEDURAL STATES] Onset: 03-14-2022 Episodic Thyroid disorders (4 sources) Other specified hypothyroidism; Translations: [Acquired hypothyroidism] Onset: 07-17-2022 Chronic Unclassified (3 sources) ABDOMINAL AA W/O RUPTURE UNSPCIFIED; Translations: [ABDOMINAL AA W/O RUPTURE UNSPCIFIED] Onset: 12-21-2021 Unclassified (1 source) Abdominal aortic aneurysm, without rupture, unspecified; Translations: [Abdominal aortic aneurysm, without rupture, unspecified] Onset: 11-14-2022 Unclassified (1 source) Encounter for screening for malignant neoplasm of colon; Translations: [Encounter for screening for malignant neoplasm of colon] Onset: 09-30-2022 Past or Other Problems Problem Classification Problem Date Documented Da te Episodic/Chronic Calculus of urinary tract (2 sources) Kidney stone; Translations: [Calculus of kidney] Onset: 07-18-2022 07-18-2022 Episodic Nonspecific chest pain (2 sources) Chest discomfort; Translations: [Other chest pain] Onset: 06-05-2021 05-11-2023 Episodic Other diseases of kidney and ureters (2 sources) Disorder of kidney and/or ureter; Translations: [Disorder of kidney and ureter, unspecified] Onset: 07-17-2022 07-17-2022 Episodic Other gastrointestinal disorders (2 sources) Constipation; Translations: [Constipation, unspecified] Onset: 07-17-2022 07-17-2022 Episodic Other lower respiratory disease (2 sources) Dyspnea; Translations: [Dyspnea, unspecified] Onset: 06-05-2021 05-11-2023 Episodic Other nutritional; endocrine; and metabolic disorders (2 sources) H/O: hyperthyroidism; Translations: [Personal history of other endocrine, nutritional and metabolic disease] Onset: 01-30-2016 10-01-2022 Episodic Screening and history of mental health and substance abuse codes (3 sources) Personal history of nicotine dependence; Translations: [Ex-smoker] Onset: 02-11-2022 07-21-2022 Episodic Substance-related disorders (5 sources) Nicotine dependence, cigarettes, uncomplicated; Translations: [Smoker] Onset: 03-14-2022 Resolved: 11-10-2023 07-21-2022 Chronic Syncope (2 sources) Syncope; Translations: [Syncope and collapse] Onset: 06-05-2021 05-11-2023 Episodic Unclassified (1 source) ABDOMINAL AA W/O RUPTURE UNSPCIFIED; Translations: [ABDOMINAL AA W/O RUPTURE UNSPCIFIED] Onset: 12-17-2021 Unclassified (1 source) Abdominal aortic aneurysm, without rupture, unspecified; Translations: [Abdominal aortic aneurysm, without rupture, unspecified] Onset: 11-14-2022 Results Test Name Value Interpretation Reference Range Facility Coding Summaryon 12-11-2022 Coding Summary HTMLBase 64 LkletgdwBMx3dNl+PGhlY WQ+XW8MZVWlK79ljSMcmU 1lM5YPLKuWZeweXBSHUJj RGdZzqwIhMA9oqBJmFTHv IC8+KA1iPFQjYtbsoYYzb 4W8hBV6A46nnl4pVKhekU V7UNHwKyVmuraca2cpkLs 6IDcuNmluOyBt ENZmpM98FQV3lK83Qq61r MVxgQHun4nvnUv5JjHzMH WlMBZ3tFzrCDafr9SeEIQ oS88ezVZbr0Q5 NWIccUbruAMqTnNrhGW9v T7zERpzwifvb9mgpudaJl v9yv59mCOyu1N2lND6M6V cvpU9DFQlyDKv RypfmGYHuD7qkvlfd6yfi jgqKgKxNHQbHHa1HKr6NC FbsNckFwTrVX30FAU6GHW mfhCxR3BqZSAv bPuqOcG7h8L3Zk4WC4MZA gunP3KFRMXURSzzeJZ+PC 25ta70X8OdVsfaFen3BUY iDBS8lQF5tP0o RKMhTTahf4S1kKL6Z7Lii nDsoe1it0djVGUlRTemE1 2dmYJwv0N7MFCddHS9ZOC rqVqiCqAfpF71 Oyc+NSBzwQohn4GzLutjs 1zrm6iwkIm2MoyeUCDpbh JofLliFHM5o6FiRu5wLZM kvZE1vRF9nT1v MfByHqR1XYdbF020GpTqy GRiAouhN82oX9UbcIA+PH IeNqn7RIXiyZuaQY9oB0K hZGRpbmctbGVm rAgdFQ6uPGTqkmppILMvm H2lJJUcH6r7XjKgCpO5CB kcQ7ZeAOFwqgfpLp10yE4 hTeFpRlT1VOvb L9MhpzM7OBAloBMkGBvaQ OL5Z58ie2P6IZYcHYQyJZ E8wHY0pM7cbOmpevzekAH mdDsgdmVydGlj DPaaLJewS586YJSqiPzwX kNvZGluZyBEYXRlOiAgMT EvMDIvMjAyMzwvdGQ+PHR bXPS3pFzhPCDb wIDmEQpyUl8gvNeggAkcW W3fLTHgckxbGUSunF8xIC YxwUIqpAyaSD8sCXRwujt gb884EqCbGDQ3 ULGqiVUcM6MqyX2xUcCxN ZEfQGZsD6TfvMVrWPnuG9 07UQxxChN1OPRchoWjY8W sLWFsaWduOiB0 u5B3Vq0Ls8RblhorM9Sxq UReNhHxEslnNHa8B3QtCd wvdHI+HJ71CANwKB24PDv 4ZFG9sEoxVVmk XAOuA2TglI7lMhCwLQBoR GRkOyc+PHRhYmxlIHdpZH RoPScxMDAlJyBzdHlsZT0 aUc2iPTQoFYDg zKannDUvAbLat3nwXCIuL RvxZQ2xeCllA6EfqYZ4MS Lux1z4Xt17N28sE2JwuRN +AWJvzDC6mHV6 cH5yXpGrSeA3XGnkQ493S fYwyVOhUjwpt6ujf4jbdX q9EiA9TGHomtJxdTwaFIS 3x9QeTc80U93t IHdpZHRoPSIxNSUiIHZhb Icwgv1izA8iUd3+PGNvbC W3yZC9vH1eNjXoQeD0ANe iY445DqPdkSVs Zoeyf9qbh0pjuDu2RnBzR VXhutEdqCkwOIC1r3MtGx 80C0NsaSafi8DfDzt3wx1 6hSFir8U0hWY1 G7ObYYMqhcltnVLmxVvhE X3hDWLytqieWLScsW8fOL KyP0l7GeRcXhN0MCybD3Z qnwC6BQUvgMQe BPSyrVDJyC3kiafss9isr trxSeDkDDWmHUc9ZFo4UK YgfYxfGbNkBZA9CaI1SXL 5iCBfdG3lfFrs pllycZ9dBzo+SQU0aZUin HSNXR3hInwojSN+PHRkIH J5tNpkNNmvFVLfxT6jGXU rL6s0KbYzBaH7 MZnkH0QzkdO0PZAmaQPcR PNlsYHYhF0xrriuj8zlmn nmAxRnFQHzBIr1MEu6MRG saWduOiBsZWZ0 SiU5RHH2aXNfyN2vkUtrp lpgiS9rZjh+QmlydGggRG H4GOh9R8TqSax1IVPjgPl cKP3fjPVwEHtn Ci3xhTzcyVaaJB3uJYXtg bwnl393JnVfh1ciDMNowZ UeXPodAEP9B83dw4X4YNE rWRGrUBO9nOZ5 iF7zdMuqrmfiwFNlzUynq wMlgGydXQxfRKckE632CJ FuaKwvExMaMRj2S3FaBzg 3CALilKcsOK1x vAWmIKpcZp6isYtefZkdI Y9gBPAyuhxzt222JgTya5 qvNGQwyZDvXBduGTP2P87 rh3G8GWRmQDLg JFW7eSY7iR1vzHyavkpdj GVmdDsgdmVydGljYWwtYW ujK692QIGvtQnxLqDobWo 9H9SoDqk5HMAu uDcbLZ2qpMYiUBzhLh1od XiutNelRL6yNRLqjukjy7 78QvXqk5acGPKmnPApRRb pJQI4U00ax5X0 RANuLUPhWII4eIO3oT8bf GlnbjogbGVmdDsgdmVydG teMAcqGBanK417OYYpnGv nPlBhdGllbnQg WPioKBk7E2BgRwmzjSI+P Z85DFVrXU59lOEfxOCqe4 vmvCs5NaLxFLXkFCQ6kJz xSGetx5YbDZAm H14foBCss1P1MTQniVzqz UAkTwIhaGN5gU3vEZmcik puc1ayastbLlvpk3rlid3 3kF30W75dISac ZHRoPSIzMCUiIHZhbGlnb w7jvV1bGo4+QGYlnIM1zQ P2eQ5gDSGeXnC8JOatX26 9InRvcCIvPjxj c5gws4uwoHl3MhV8BIDjt zClaVkeJZT5l1BhHu33D1 9sIHdpZHRoPSIyMCUiIHZ pyVmbja4xhB0k Ii8+VANqoPD2sAR5vD3oN mWiZsR0SYcaF194AsKbfQ NgAlluJ90tQ1AyrRC+PHR eZyr9SZZefVvr GZ3qeCQkYXlvVc4cIYY5N hQmSvMfWRojP6BrCCMskh mxuojbvZC6XKVcKAQofK5 4Qs0xiLnbWTFc sLVBmD4rqikgg4ffqqyxS kPoADWxZAe7DMg1HWEbtR amUpLfLPX1KcN4HKN6sRQ akG4blDcdezui iZ9xW4FnRLHdplljAe77i J6tArRuZqZ4XXvoLtz+Rk ATIJWRUXXEHK1RDcFDLX5 3TN24lMUpn5V6 mKN0Y5RlKIPejcvozgpnj ZV9OGSeUZUggY99rPWkWQ caEu0kd6O7f480FJZcZNC lcT49Dx0haLjq DARltPOZwC0didoir3nzf eshQhRhNGVoZGw6RTi3MO NabTugEbWgYKI3DwL9KDU 4wZXlwI9dcZda jemctR5kDud+MDcvMzAvM Ex1ZflmjTY+XUIzZRS0uQ vhHXsqTHSwsZ4oXGXaR7h 7ViRdUmI1CJgg A1KtQMJpqkntLh01dL6nZ qJyBbF3COytL5OmgzZ1UA NmoZVkOInmSMI6I74fa5T 7EUAsVLPjXMH3 sLE1xZ7hlDdjfbefeDXro DsgdmVydGljYWwtYWxpZ2 61TLBrwEqsSoZ2JQroPDQ yNF79KO97bIBc f0I6mSN2W9UsGCRodsgaq wdnrYG5NOFhVWOybK67hI RrFBdjMq7wj1T2s076QWS sXKObcW85Ed2r xZbaEYYksFYLnK7comvno 0gfokoePfVpYMAmNLc2NX y6ZYErlFnkQrQgCXW5DhJ 2IBZ2xGWivT0f tTxlwjoynU8hOcj+TUFMR TwvdGQ+VXHfZBD7aUwdLU oyUSRmmX5wNIIcU3i5VjY eCoP0JNwuW3Hh LHMxegumXy23jD6hXjJhD zL1DZdsG7UaziK7ADNtrG ByBAnpJWH7E91cd5P2UAO sJKQnWSH6xAU9 aL6voCfebcbvkCHssZoek eBjcHtiCLfpLZzwF183JV RvcDsnPkRheSBTdXJnZXJ 8GI96FL24I8Sk PjwvdGFibGU+PHRhYmxlI HdpZHRoPScxMDAlJyBzdH oiOZ8oAb8aHIExDGKijGp rvSLiFiFwq5tl BUUtXZqzSJ5ecKxjC3Qgo ZF9OBRfk9e1Az19I84jB1 JvdXA+KYBcqSL0vYN7iN2 kFfVtKeW9LAne Z488JuQqtHOxCkuyl7qoc 0hcsFh7PsJePWYrngBdlB jlCQU6a2PhOi52G54cBVi pZHRoPSIyMCUi GZMpeSgxmu1lgP0cPd1+P PKdbKD9jWI8kE2uYoXvRz B2VAakW849QzAplSGoSxq iV98vS0QdzDW+ VHIxGnd1VTYisUmhRG9tj IVzWBtgUh2iGYO8ZiUlBk VsCCcaX9KpPGYdmrsizdv prCP5WXIkNJWh nE13Xo2moLtxZo0gKGEdU YJ7KJXigXDfN5ZreU9fLd XtRUOkPIOeJ6TqmUPqDQx uK882XPbaJnH8 FUTeiwPlA5QqNFRboEimQ zZ0r1Q7Bt9FcQiabXHoQO 4rAbDkAYb4Y9NnCnk9YQU kqObrUY7eyCUg IGymZi5waRwuyFkiQS7zX YQwpjocx550KzZhb3qpKJ XpnZKpVRfbFCY0X95di2F 3TFCnQORlDHA5 dVS5kJ4xiDdvpiqmmNPoh DsgdmVydGljYWwtYWxpZ2 30QXXflRywWvEHEuc1J9F aHwa9CIMdmJrj XU4anMRjUWriPs3bqOwir DnsCF5cBVYrgqvdn106Ew Pbm4nqBTHopMIgMEbeHYM 0U43as5D8HNUb JSBzDTH6cUD8uU8rxVkug jogbGVmdDsgdmVydGljYW vhYTxhP205UVNdyKloBn5 WYyb4J4SnMgd9 RSGuqXvbAH3yqRBhBNnsW e4ruZomlLfbCN6sTKWnzk rly428PyBcb3xsVZYviUD dFOgeUBK7I78f m6P2PCGyPSHrCDY7aBJ8a V2gwPmrltwwaTWwwVevhh PgeDirVPppBDqsM328HXY vcDsnPlBheWVy OjwvdGQ+YC00wx43T7GdP ialGcd8VMSgMGC9lHC8dY 7wRWMwETwfk9W1eQD1W3V hrlMqnz9rv4yu YXB (more content not included)... [facility] Lab - AP Resultson 3 Lab - AP Results [id number]#1 .00[facility] Consent Formson 12-05-2022 Consent Forms [id number]#1 .00[facility] Consultation/Specialist Note on 12-05-2022 Consultation/Special ist Note [id number]#1 .00[facility] Outside Recordson 12-05-2022 Outside Records [id number]#1. [address] [place] [address] Provider Orderson 12-05-2022 Provider Orders [id number]#1 .00[facility] Telemetry Stripson 3 Telemetry Strips [id number]#1. 00[facility] Anesthesia Noteon 12-04-2022 Anesthesia Note Patient: LASHAWN MONTENEGRO Age: 67 years Sex: MALE : 1955 Associated Diagnoses: None Author: Steffen Ng DO Postoperative Information Post Operative Note: Post Anesthesia Care Unit. Physical Examination VS/Measurements Vital Signs 12/04/2022 14:10 EDT Heart Rate Monitored 67 bpm Respiratory Rate 18 br/min Systolic Blood Pressure 154 mmHg HI Diastolic Blood Pressure 49 mmHg LOW Mean Arterial Pressure, Cuff 84 mmHg SpO2 100 % Oxygen Therapy Room air General: Alert and oriented, No acute distress. Respiratory: Respirations are non-labored. Cardiovascular: Normal rate, Regular rhythm. Review / Management Condition: Stable. Assessment Anesthetic outcome No anesthetic complications noted. Plan Transfer/ Discharge: Patient can be discharged from PACU when criteria met. Condition good. [Electronically Signed on: 12/04/2022 15:23 EDT] Steffen Ng DO [Verified on: 12/04/2022 15:23 EDT] Steffen Ng DO [facility] Anesthesia Note Patient: LASHAWN MONTENEGRO Age: 67 years Sex: MALE : 1955 Associated Diagnoses: None Author: Steffen Ng DO Preoperative Information Anesthesia history: Patient history: No difficult intubation, No malignant hyperthermia. Family history: No malignant hyperthermia, No prior anesthesia problems. Review of Systems Constitutional: Negative. Eye Ear/Nose/Mouth/Throat Respiratory: No shortness of breath. Cardiovascular: No chest pain. Gastrointestinal: No heartburn. Endocrine: Negative. Musculoskeletal: Negative. Neurologic: Alert and oriented X4. Health Status Allergies: Allergic Reactions (All) No known allergies Current medications: Home Medications (5) Active aspirin 81 mg oral delayed release tablet 81 mg = 1 tab(s), PO, Daily folic acid 1 mg oral tablet 1 mg = 1 tab(s), PO, Daily levothyroxine 88 mcg (0.088 mg) oral tablet 88 mcg = 1 tab(s), PO, Daily rosuvastatin 10 mg oral tablet 10 mg = 1 tab(s), PO, Daily Vitamin B12 1000 mcg oral tablet 1,000 mcg = 1 tab(s), PO, Daily Problem list (past medical history): All Problems AA (aortic aneurysm) / SNOMED CT 820575461 / Confirmed Former cigarette smoker / SNOMED CT 029284208 / Confirmed Bladder cancer / SNOMED CT 7054310015 / Confirmed Inactive: Current every day smoker / SNOMED CT 7267169989 Resolved: Graves disease / SNOMED CT 795239621 Histories Family History: CA - Breast cancer Mother Heart attack Father Procedure history: KTP laser ([id number]) on 03/11/2022 at 66 Years. Comments: 03/11/2022 10:44 Davon Mcginnis RN greenlight laser Cystoscopy ([id number]) on 03/11/2022 at 66 Years. Comments: 03/11/2022 11:32 Jamee Murray RN with Greenlight laser TURBT - Transurethral resection of bladder tumor ([id number]) on 10/22/2021 at 66 Years. Thyroid ([id number]). Comments: 10/04/2021 10:13 Davon Cm RN radioactive tx for graves disease TURBT - Transurethral resection of bladder tumor ([id number]). Social History Electronic Cigarette/Vaping Assessment Electronic Cigarette Use: Never. Alcohol Assessment Use: Current. Liquor, 1-2 times per week Use: Current. Beer, Liquor, 1-2 times per week Tobacco Assessment Former tobacco user Tobacco Use:. Started age 16 Years. Stopped age 66 Years. Never Smokeless Tobacco Use:. Current everyday tobacco user Tobacco Use:. Former tobacco user Tobacco Use:. Stopped age 66 Years. Substance Abuse Assessment Substance use: Never. 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 Home/Environment Assessment Lives with Self. Nutrition/Health Assessment Regular, Caffeine intake amount: Coffee 8oz/daily. . 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 Physical Examination VS/Measurements Vital Signs (last 24 hrs) Last Charted Heart Rate Peripheral 90 bpm (DEC 04 11:54) Resp Rate 18 br/min (DEC 04 11:54) SBP 139 mmHg (DEC 04 11:54) DBP H 100 mmHg (DEC 04 11:54) General: Alert and oriented, No acute distress. Airway: Mallampati classification: II (soft palate, fauces, uvula visible). Temporomandibular joint mobility: Good. Mouth: Teeth ( Broken, Missing, Pt denies loose teeth. Poor dentition. ). Neck: Full range of motion. Respiratory: Lungs are clear to auscultation. Cardiovascular: Normal rate, Regular rhythm. Neurologic: Alert, Oriented. Review / Management Laboratory Results Plan [place] [employer]#( A) physical status classification: Class III. Anesthetic Preoperative Plan Anesthesia: General. . Anesthetic plan, risks, benefits, and alternatives discussed with the patient and/or family. Risks discussed: nausea, vomiting, sore throat, serious complications. Patient verbalized understanding. Family/Guardian present. Informed consent was given. Consent was signed by the patient. [Electronically Signed on: 12/04/2022 13:14 EDT] Steffen Ng DO [Verified on: 12/04/2022 13:14 EDT] Steffen gN DO Normal [facility] Inpatient Patient Summaryon 12-04-2022 [place] [address] Patient Discharge Instructions Name: LASHAWN MONTENEGRO : 1955 Patient Address: [place] [address] Primary Care Provider: Name: MARY SANTOS MD After you are discharged if you find you have any questions, please, call [phone] ext [phone] to speak to a nurse. Discharge Diagnosis: Bladder neck contracture Prescription Information: If you have been given a prescription for narcotics, seek immediate medical attention if you have any difficulty breathing or any sudden status changes such as confusion and sleepiness. If you or anyone you know is experiencing suicidal thoughts, mental health, alcohol and/or drug addiction problems; contact the [facility] 01/09 Crisis Hotline -Text 4HFQD ht [phone]. If you received any narcotics, sedation, or any other medication that causes drowsiness for the next 24 hours, unless otherwise directed: ? Do not drive a car. ? Do not operate machinery such as power tools, lawn mowers, drills, sewing machines, or stoves ? Avoid alcoholic beverages and drugs for allergies, nerves, or sleep ? Do not make important personal or business decisions or sign any legal documents [facility] would like to thank you for allowing us to assist you with your healthcare needs. The following includes patient education materials and information regarding your injury/illness. LASHAWN MONTENEGRO has been given the following list of follow-up instructions, prescriptions, and patient education materials: Follow-up Instructions Medications During the course of your visit, your medication list was updated with the most current information. The details of those changes are reflected below: New Medications [facility] 1985, [address] [place], [place] [id number], [phone] cephalexin (cephalexin 500 mg oral capsule) 1 cap(s) Oral Every 12 hours scheduled time for 3 Days. Refills: 0. traMADol (Ultram 50 mg oral tablet) 1 tab(s) Oral every 6 hours as needed as needed for pain. Refills: 0. Medications to Continue That Have Not Changed Other Medications aspirin (aspirin 81 mg oral delayed release tablet) 1 tab(s) Oral every day. cyanocobalamin (Vitamin B12 1000 mcg oral tablet) 1 tab(s) Oral every day. folic acid (folic acid 1 mg oral tablet) 1 tab(s) Oral every day. levothyroxine (levothyroxine 88 mcg (0.088 mg) oral tablet) 1 tab(s) Oral every day. rosuvastatin (rosuvastatin 10 mg oral tablet) 1 tab(s) Oral every day. It is important to always keep an active list of medications available so that you can share with other providers and manage your medications appropriately. As an additional courtesy, we are also providing you with your final active medications list that you can keep with you. aspirin (aspirin 81 mg oral delayed release tablet) 1 tab(s) Oral every day. cephalexin (cephalexin 500 mg oral capsule) 1 cap(s) Oral Every 12 hours scheduled time for 3 Days. Refills: 0. cyanocobalamin (Vitamin B12 1000 mcg oral tablet) 1 tab(s) Oral every day. folic acid (folic acid 1 mg oral tablet) 1 tab(s) Oral every day. levothyroxine (levothyroxine 88 mcg (0.088 mg) oral tablet) 1 tab(s) Oral every day. rosuvastatin (rosuvastatin 10 mg oral tablet) 1 tab(s) Oral every day. traMADol (Ultram 50 mg oral tablet) 1 tab(s) Oral every 6 hours as needed as needed for pain. Refills: 0. Take only the medications listed above. Contact your doctor prior to taking any medications not on this list. Diet & Activity Patient Activity Level: Patient Diet: Patient Activity Restrictions: Comment: Patient education materials, if any, will display below Viruses or Bacteria What?s got you sick? Antibiotics only treat bacterial infections. Viral illnesses cannot be treated with antibiotics. When an antibiotic is not prescribed, ask your healthcare professional for tips on how to relieve symptoms and feel better. Usual Cause Illness Viruses Bacteria Antibiotic Needed Cold/Runny Nose NO Bronchitis/Chest Cold (in otherwise healthy children and adults) NO Whooping Cough Yes Flu NO Strep Throat Yes Sore Throat (except strep) NO Fluid in the middle ear (otitis media with effusion) NO Urinary Tract Infection Yes Antibiotics Aren?t Always the Answer www.cdc.gov/getsmart GET SMART Know When Antibiotics Work U.S. Department of Health and Human Services Centers for Disease Control and Prevention October 2013 [facility] 12-04-2022 L - -------- Specimen: [id number] Received: 12/05/22 Status: ROSA Lindo Num: [id number] Spec Type: Surgical Subm Dr: Huey Alvarado MD Tissues: A Skin - Plastic Repair/Scar (BLADDER NECK TISSUE SCAR) Procedures: Manpreet RAMACHANDRAN/Micro L2 -------- Age/ Patient Sex Location Account Attending Physician -------- Lashawn Montenegro/[facility] [id number] Huey Alvarado MD -------- SPEC NUM: [id number] RECD: 12/05/22 STATUS: ROSA LINDO NUM: [id number] JONO: 12/04/22 [facility] DR: Huey Alvarado MD ENTERED: 12/05/[address] [facility] [address]: Rush Suarez SPEC TYPE: Surgical DEPT: MAG ADAMES ORDERED: MADIE Gross/Micro L2 ORDERED: Manpreet RAMACHANDRAN/Micro L2 Pathological Diagnosis Bladder neck tissue, TURP: - Patchy focal mild nodular prostatic glandular hyperplasia with patchy mildly associated chronic inflammation, compatible with changes of BPH - Patchy mild chronic inflammation in urothelial region with occasional mild reactive urothelial hyperplasia - Patchy moderate lymphangiectasia and occasional pigmented histiocytes, compatible with manifest or effect of past bladder neck injury and scar tissue with associated contracture Clinical Information None provided Gross Description Received in formalin labeled with the patient's name, date of and bladder neck scar tissue is a 2.8 x 2.0 x 0.7 cm aggregate of vo-araya rubbery tissue. Entirely submitted in one cassette labeled A1. -------- Specimen: [id number] Received: 12/05/22 Status: ROSA Lindo Num: [id number] Spec Type: Surgical Subm Dr: Huey Alvarado MD Tissues: A Skin - Plastic Repair/Scar (BLADDER NECK TISSUE SCAR) Procedures: Manpreet RAMACHANDRAN/Rickie L2 -------- Patient: Lashawn Montenegro [id number] (Continued) -------- Specimen: [id number] Received: 12/05/22 (Continued) Signed (signature on file) Tiffany Rawls MD 12/08/22 1436 -------- Specimen: [id number] Received: 12/05/22 Status: ROSA Lindo Num: [id number] Spec Type: Surgical Subm Dr: Huey Alvarado MD Tissues: A Skin - Plastic Repair/Scar (BLADDER NECK TISSUE SCAR) Procedures: Manpreet RAMACHANDRAN/Rickie L2 -------- Patient: Lsahawn Montenegro [id number] (Continued) -------- Specimen: [id number] Received: 12/05/22 (Continued) Microscopic Description One H E slide reviewed. The microscopic examination confirms the diagnosis. CPT Codes 40214 -------- -------- Specimen: [id number] Received: 12/05/22 Status: ROSA Lindo Num: [id number] Spec Type: Surgical Subm Dr: Huey Alvarado MD Tissues: A Skin - Plastic Repair/Scar (BLADDER NECK TISSUE SCAR) Procedures: MADIE, Gross/Rickie L2 -------- Patient: Lashawn Montenegro [id number] (Continued) -------- Signed (signature on file) Tiffany Rawls MD 12/08/[address] [place] [address] MAGR Intraoperative Recordon 12-04-2022 MAGR Intraoperative Record MAGR Intra-Op Record Summary Primary Physician: Huey Alvarado MD Finalized Date/Time: 12/04/22 13:49:49 Pt. Name: LASHAWN MONTENEGRO/Sex: 1955 MALE Med Rec #: [id number] Physician: uHey Alvarado MD Financial #: [id number] Pt. Type: D Room/Bed: / Admit/Disch: 12/04/22 11:43:59 - Institution: Case Times MAGR Entry 1 Patient In Room Time 12/04/22 13:04:00 Out Room Time 12/04/22 13:42:00 Anesthesia Start Time 12/04/22 13:04:00 Stop Time 12/04/22 13:42:00 Surgery Start Time 12/04/22 13:19:00 Stop Time 12/04/22 13:40:00 Last Modified By: Zandra Lucas RN 12/04/22 13:43:12 Case Attendance MAGR Entry 1 Entry 2 Entry 3 Case Attendee Felton RUBBER TUBING SPLICER, Karolina RUBBER TUBING SPLICER Zandra Lucas RN, David DO CSFA Role Performed Scrub Personnel Fan Engine Engineer Anesthesiologist of Record Time In 12/04/22 13:04:00 12/04/22 13:04:00 12/04/22 13:04:00 Time Out 12/04/22 13:42:00 12/04/22 13:42:00 12/04/22 13:42:00 Procedure Cystoscopy TUR BT Cystoscopy TUR BT Cystoscopy TUR BT Last Modified By: Zandra Lucas RN, Lauren L RN Wheeler, Lauren L RN 12/04/22 13:43:24 12/04/22 13:43:24 12/04/22 13:43:24 Entry 4 Entry 5 Entry 6 Case Attendee Aliza Florentino RN, Bradley J MD Adkins, Brittany E CSFA RUBBER TUBING SPLICER Role Performed Fan Engine Engineer Surgeon - Primary Scrub Personnel Time In 12/04/22 13:04:00 12/04/22 13:04:00 12/04/22 13:04:00 Time Out 12/04/22 13:42:00 12/04/22 13:40:00 12/04/22 13:42:00 Procedure Cystoscopy TUR BT Cystoscopy TUR BT Cystoscopy TUR BT Last Modified By: Zandra Lucas RN, Lauren L RN Wheeler, Lauren L RN 12/04/22 13:43:24 12/04/22 13:44:07 12/04/22 13:43:24 Surgical Procedures MAGR Pre-Care Text: A.20 Verifies operative procedure, surgical site, and laterality Im.150 Develops individualized plan of care Entry 1 Procedure Cystoscopy TUR BT Primary Procedure Yes Primary Surgeon Huey Alvarado MD Surgeon Comment CYSTO TUR OF BLADDER NECK CONTRACTER WITH INJECTION OF STEM CELLS Start 12/04/22 13:19:00 Stop 12/04/22 13:40:00 Anesthesia Type General Surgical Service Urology Wound Class Clean-Contaminated Technique Details Closure Technique N/A Entire procedure No was performed via laparoscope or robotic assistance Last Modified By: Zandra Lucas RN 12/04/22 13:43:13 Post-Care Text: O.730 The patient's care is consistent with the individualized perioperative plan of care General Case Data MAGR Pre-Care Text: A.350.1 Classifies surgical wound Entry 1 Case Information OR MAGR OR 05 Case Level Level 4 Wound Class Clean-Contaminated Specialty Urology ASA Class 3 Diagnosis Preop Diagnosis BLADDER NECK OBSTRUCTION Postop Same As Preop Yes Postop Diagnosis BLADDER NECK OBSTRUCTION Blunt or No Is the procedure No penetrating injury considered occured prior to Emergent/Urgent? the start of the procedure: Last Modified By: Zandra Lucas RN 12/04/22 13:43:18 Post-Care Text: O.760 Patient receives consistent and comparable care regardless of the setting Time Out MAGR Entry 1 Time out date/time 12/04/22 13:18:00 All team members Yes have introduced themselves by name and role Surgeon, Yes Surgeon reviews Yes anesthesia, nurse critical or confirm patient, unexpected steps, site, procedure operative duration, anticipated blood loss Anesthesia team Yes Nursing team Yes reviews any reviews sterility patient-specific (including concerns indicator results) and equipment issues/concerns Antibiotic Last Modified By: Zandra Lucas RN 12/04/22 13:18:42 Patient Positioning MAGR Pre-Care Text: A.280 Identifies baseline musculoskeletal status Im.40 Positions the patient Im.80 Applies safety devices Entry 1 Procedure Cystoscopy TUR BT Body Position Low Lithotomy Left Arm Position Extended on padded arm Right Arm Position Extended on padded arm board board Left Leg Position Secured in Stirrup Right Leg Position Secured in Stirrup Press Points Checked Yes Positioning Device Stirrups, Safety Strap Outcome Met (O.80) Yes Last Modified By: Zandra Lucas RN 12/04/22 13:12:35 Post-Care Text: E.290 Evaluates musculoskeletal status O.80 Patient is free from signs and symptoms of injury related to positioning Skin Prep MAGR Pre-Care Text: A.30 Verifies allergies Im.270 Performs skin preparation Im.270.1 Implements protective measures to prevent skin and tissue injury due to chemical sources Entry 1 Skin Prep Syntegrity Prep Agents (Im.270) 4% Chlorhexidine Prep By Zandra Lucas RN Gluconate Prep Area (Im.270) Perineum Skin Prep Agent Dry Yes Without Pooling Hair Removal Syntegrity Hair Removal Methods No hair removal performed Outcome Met (O.100) Yes Last Modified By: Zandra Lucas RN 12/04/22 13:13:54 Post-Care Text: E.10 Evaluates for signs and symptoms of physical injury to skin and tissue O.100 Patient is free from sig (more content not included)... [facility] MAGR PACU Recordon MAGR PACU Record MAGR PACU Record Summary Primary Physician: Huey Alvarado MD Finalized Date/Time: 12/04/22 14:11:34 Pt. Name: LASHAWN MONTENEGRO/Sex: 1955 MALE Med Rec #: [id number] Physician: Huey Alvarado MD Financial #: [id number] Pt. Type: D Room/Bed: / Admit/Disch: 12/04/22 11:43:59 - Institution: PACU Case Times MAGR Entry 1 In PACU I 12/04/22 13:44:00 Discharge from PACU 12/04/22 14:13:00 I Last Modified By: Halie Sanchez RN 12/04/22 14:11:29 Finalized By: Halie Sanchez RN Document Signatures Signed By: Halie Sanchez RN 12/04/22 14:11 [facility] MAGR Postoperative Recordon 12-04-2022 MAGR Postoperative Record MAGR Phase II Record Summary Primary Physician: Huey Alvarado MD Finalized Date/Time: 12/04/22 15:57:46 Pt. Name: LASHAWN MONTENEGOR/Sex: 1955 MALE Med Rec #: [id number] Physician: Huey Alvarado MD Financial #: [id number] Pt. Type: D Room/Bed: / Admit/Disch: 12/04/22 11:43:59 - Institution: Phase II Case Times MAGR Pre-Care Text: Patient is free from s/s of injury. Patient remains free from compromised physical state related to surgery or anesthesia. Patient comfort maintained. Patient/family verbalize understanding of discharge instructions. Entry 1 In PACU II 12/04/22 14:15:00 Discharge from PACU 12/04/22 14:50:00 II Last Modified By: Mine Suarez RN 12/04/22 15:57:43 Post-Care Text: The patient remains free from s/s of injury. Patient's vital signs stable, circulation maintained, return to preop mental and physical status, opsite/dressing intact, minimal or absent nausea and vomiting, tolerates po intake. Patient verbalizes adequate pain control. Patient/family express understanding of discharge instructions. Finalized By: Mine Suarez RN Document Signatures Signed By: Mine Suarez RN 12/04/22 15:57 [facility] Preoperative Recordon 1 [facility] Preoperative Record MAGR Pre-Op Record Summary Primary Physician: Huey Alvarado MD Finalized Date/Time: 12/04/22 14:19:04 Pt. Name: LASHAWN MONTENEGRO/Sex: 1955 MALE Med Rec #: [id number] Physician: Huey Alvarado MD Financial #: [id number] Pt. Type: D Room/Bed: / Admit/Disch: 12/04/22 11:43:59 - Institution: Pre-Op Case Times MAGR Pre-Care Text: Patient will be optimally prepared for surgery. Patient is free from s/s of injury. Provide information to patient/family related to plan of care. Verify patient allergies. Confirm identity and verify consent before the operative or invasive procedure. Entry 1 Patient Arrival Time 12/04/22 11:49:00 Preop Departure 12/04/22 12:58:00 Last Modified By: Halie Sanchez RN 12/04/22 14:18:58 Post-Care Text: Patient is prepared mentally and physically and is ready for surgery. The patient remains free from s/s of injury. Patient/family express understanding of plan of care and participate in decisions affecting his or her perioperrative plan of care. Allergies documented appropriately. Patient identifiers and consent correct. General Comments: Pt arrives to psw ambulatory. PT denies cp, sob, cough or flu like symptoms. PT denies pacemaker/defibillato r or sleep apnea. Finalized By: Halie Sanchez RN Document Signatures Signed By: Halie Sanchez RN 12/04/22 14:19 [facility] Patient Handouton 12-04-2022 Patient Handout [facility] Coding Summaryon 12-03-2022 Coding Summary HTMLBase 64 InvbopvoHEu7xZu+PGhlY WQ+JJ0ZFIRaJ10eqHFwyP 6pS4RNOOwUXwvlOFAGIUe GUxOznrBfER7zhJVbUOLf IC8+RC1jVRSzQpyjlIJtk 2I9mTV1Z93ehw5eEQyaiJ V9VYHyNnDgssjmk4xwjNr 6IDcuNmluOyBt DPKgxE39SWM1aA37Yr73m KEroYPwi4fykPk4WoIdQJ WkSZD6mPxqKDwiy4YeDGF eW93fkDUyl8V0 LVLicIrfqCGdZmCedER6i F2yWSuqyvplo2upycdvSe b9ox44gSAyd4N0uUW2Y7C crbX7DOLqfINp JxnytAXRyM4gzrkze9fdu oqfIbCbAALgBEh4OCx9EF LilGsuHdRrBB79AUI0VWQ sebXvF7IdDQPi fTgkBhG7m8L5Pu3WX4DZN ibmV2DJVRKPDRbahVP+PC 98yb49P4GoTmukJwg2ILR rSLF8lSH2vQ5w NNLkWMabo2Q9iON2Y0Cpq nRvfe5uv7ajAMAtDRhdW3 1cxXHeg3O4WIXcmXU6WQZ mhEtpJeXbnY65 Oyc+IHEweFjiy3DjByuwd 4rgs5uttXg2SpxfBAUlrp MgeTngTUC8n3OhJd3kXGA nnPN5iDW6zT8h VgVtLdB9UAkwD264PfKbk QGmWdlgU28qY9RmpYN+PH SsLnj8MKSasHpbYM9jZ9V hZGRpbmctbGVm xTeaSY9bYRJbmxpkPKNub J0jEOLnW0g3HcZjZfZ3EB ooL6RyCESxsebeOm94aS8 sIhWoLdW3SNfy V2TbldG5TWOxkBNcEEytI ZK6R96xg1Y9DTExHYYrBC M4zQY9kY7ueMuvxemuaUX mdDsgdmVydGlj SXlsTUlsB575EOMxkYsiE kNvZGluZyBEYXRlOiAgMT AvMjUvMjAyMzwvdGQ+PHR wHXS8gIlxVPPe yDPfLXrkAj9xvEupcOuhB A7lOGVomobzQXCjiB8pDL VliGRbyNitLO2jBAZmkla kg113JiTaSVA1 ANXipNFsS6DscP8tPoEbH MMzRFXcY2TcmNPjKSswY2 36JNyfCkE9SSSrqrWpJ0P sLWFsaWduOiB0 m0R2Uu0Qe5HtmdzlT6Gjg CWiBkYpYgdhCIf3M5ZkNc wvdHI+GD39FKSoHT67XSf 7VWR3uAkvSSsz ZBMpT1EtmN2bDyYqOGQxB GRkOyc+PHRhYmxlIHdpZH RoPScxMDAlJyBzdHlsZT0 aOq4iASNoXZZa pMszsZQkKwQyo8htLAIbT PcdMP9pvMylI8NytSC1FL Iom4q5Sw58M48lA4VnwNK +LOUlsKI7lUM4 zG1mUoDeApJ0VPafM238U eBddRKvItoyj0bfv1mdcL v1ZhG4RPHieyUvlYoeAIJ 9r7JwDo96F79p IHdpZHRoPSIxNSUiIHZhb Afmzx7zdM6mBi9+PGNvbC R2mTS6wS8mEcDaLeF4QDy cK205BdCdnHSq Kuwee0ekp9ewbCw6KmFqE WElanIwpJgkNXT9d7KbQa 65H9OmmJtsm6ApXhd2bf6 9yADlj2R5nTG6 X3UyKKTkzftuvFLbrPefY U1aZKYrafgkLRRgeC6dJU ViU9z5RpVpVdQ9OKbvK8N kyaM0WZPooVKa LAWkfLOVjV5ejrmvb6ijz dsaLxIgOLSkCWw3VQo4QA MzrXjbEqIxVXC6AyE9JYQ 0gGEzeC1qiFic ztzkzR3oUcy+BRV1tYWud JIJCF7eYutexQA+PHRkIH R6gPtwVLacEQTwyX2aAZN hM4q4TvNvQxL0 AKbgZ8LqzdV7NWWgmOQvW QArsMVOnA2wvarhw7knlq uvCzXaNOSiRKh5IYt3ZOA saWduOiBsZWZ0 CvW0FRI4bDLucF8mfKcie egmaR3tNgb+QmlydGggRG G7UId5B2WvJbk4EMRuiHc rTX3pcZLtZYdw Hx0ekVmbkUdmXG8hKMCau bwht415TcKub0qlHGXwuB JxAKohWDP3A04mh4A5GUL zOEAwKTU2kMU1 iQ3biCdmjatmjQXxnFmju jFpdGcfOFcgAOahC962VF SxsSjhUxRjIAa4N3LcHsb 5DAOutSbnMC9u tNMgWTtzGm2ybDlmeApqV W4oRZCvemihw426GrNii6 zzWAEibQLjHPmfWKU5T56 je0W9TSFwXQAe DYK2uID2zB1zaXbprrhhg GVmdDsgdmVydGljYWwtYW eaN778XCYrnBbfGgBxkYx 3U5EsHum1NRNk hFqeAP2kjOAhSVxpHc0bu YtdfMheUI1vHKVnkqbkq3 58FoRkr5hqERYfmCGqICr qTHP4Y42sn5I5 DXKvEXFmKIA1hIB6eW2av GlnbjogbGVmdDsgdmVydG xdUQreJGunT401WTEuoWy nPlBhdGllbnQg UPlhIBh7N5LeTyebpEO+P T58PPQkSP34aYZnzPJdq8 ehsTi7GzGcLLCiVYI8dDn hWTkzz2KhAZEm V34uyWRbg9H7KPViiAoot KIzRmLmrXR9hQ6oVRjulw jnj0efpalvKoroz3oofa2 6zE37J36rKSrr ZHRoPSIzMCUiIHZhbGlnb v7nhR3dAb9+JSVpmVU0fY C3gL1mHRVpGwV0LVhlJ37 9InRvcCIvPjxj c4ojt5kcbTe4HvC7GYBor wVywUlwUZV8u4JdPp20Z2 9sIHdpZHRoPSIyMCUiIHZ grAnezj4vxG4v Ii8+MGSmyIM3vTA1hN7cP sDwWcQ3IWklZ188HdXutN YjMlovL91wT4HojCT+PHR yEge5BYJkuPbg UD1xuOLbGAjlIa3kAVK5H gEfXrVmFYlxX6AxAWEwoy lfwnmyxXV4EQGnLREnpY9 8Th7ktIqdOBHp nVSCmX0oceeei1wmwfcjH yNyCAQiHMx3XIx3XAEwhC cxHiEhTXZ6DcW8UEQ5tDP ueJ2ofUgctdej mK4wW6StIYOnszsnUa96q A1rArAiIaU6SYvcHyv+Rk ONPZXHDINWLB4BKeDELW0 8QV86iDDiu8H8 lZX5I1GbNPTpzbzmkgknb WR4IGJiIJJxsS76gIWsVP wuOn3tj1J0y834ZLCxFPL kyA77Ef7cfCug AUWypCWWmF5dkbwfb1iqc kcvBdHvNKSoUUy4ZDf4SG QmyDcbRxFgGGA7IpO4EVG 2ePYulW0kvItb uigmnC2xKqv+MDcvMzAvM Xy9EuouzRG+BMIfFLR2nJ jlQBsaEFCvkE8cPJIeM0z 7BkDkOpU9UZmc W9FnMMMehiqlFy38zG4sP eJdKbL9NBskS5JvzmE5WD SmuVDeTYnkHZP6M16hv4S 0GEUgYBIbQSG4 dCH7hP2tlRgysvmebDOnm DsgdmVydGljYWwtYWxpZ2 39WLRerWhjLxY6AVqzIXW kIY75HH76sXQk u6X2bQS2Q6YtDVHhxvirz vkxjDW1UCYbUKGneP58kT DvETcuOa6jh4O7n778ZZK mQKCprH57Kb7m rXypKYLvjXUEhA3ovnyyx 2qnbmrcRtHcSPXuGXx2IQ b6TJKriWjiRnTpDGY4HaS 1GLS6oQDelO9l fTtyttalbK4cRym+TUFMR TwvdGQ+KIKbBJR3gRjeBT goGEWkkB3sOGIxA2b8OxH tCjO6IPcjD3Do OXYpegnbZd45qE0wIsRdI pB2ONvcH5JccoM9DTPemF CbDNesCFD9R33pl0K7EUJ fIBUaAQC4sOO5 qA9obVtjbtvpbTRgpArfu rInbMkeYXixAVyzM549MN EfpEgyGd5GXG65RX25I6W yPjwvdGFibGU+ PHRhYmxlIHdpZHRoPScxM IStNzEvhIimGP3mMq9jIO EnIQBppMmneRVzMtAlq3b nYAFfABgvCY2z lAfxS2OobEZ9DNPiy0y1E p92I78lI1IyhAA+PGNvbC Q2bTR0wU2jIjAjKxU3RCv eN635SqMrsUGr Phrbo9kst8maeOv9OoLfN YBvagEstThtATX0h7UwRn 47Z78iPGvuBLEyDIOeWYG gQCJddBmalj4j wG2kLs6+HNEghAG2tDN5r V8mPyJfAoD6QIxdP859Qu BsfVSkKnpiS79eN0YusGQ +ZWWyXbw4QOYt dSzzIX9heFUtTSgkTe6tR OG4GyPmXtPdOVjrB6DjHO EwzdpjztmizTP3VJRzPTD rwM74Hm8pjXwf Yx2nRBMpJSJ7ZKObcEBsA 5HawS4nEqJnBUXgXRHdT2 FgeBDsNLxhB709KUevBhR 3HMLrbnFcY7Ck LUFgeNyvNnG7v5L2Mw9Fh DnvrRAnHG3tExYuWSu9E4 KbWrn9CWHabQqqVD6xaEE yDWxnRb6stBrs mGfoWF1rXBEboiukf951K lTin4txMJYauJTlQUbxVF N8N53do5G5SAHnHPHfZMU 2gHA1pQ7ryDlr bjogbGVmdDsgdmVydGljY KptVVpmE073GLUqySfpFs MNGfh5B1WtTid2LYAlgHb dJG0xqQAgYPpb Rf7ijOsjeMwgIO4fFHGwh sglh913OkEbe1wcWHBfmK CdCUxvUJR7N46nw8O8EDX hVSAjCKE9wEX6 nC0guKqomffglJIvhRdzu tVxvPxbNPlvZMuoJ882AS TmqLmdSk0YMfq8U1JkKrt 0OPBfoTimLP4q oETsPShcCp3hkHjfkLcsB G8wCEQuongky514IkKqr5 fzYPTfxLZgFAzmFRV9Z76 ps7A8JHPfRKWw GPF4dWT3yF7ztHitvqgkm GVmdDsgdmVydGljYWwtYW xoG220TBJvkBebVfKijTH yOjwvdGQ+PC90 sk38W3FpMmtrRlj2HTJvI QX9sRB7dZ9pXXWxECnhk1 D0eKM7G2KgquXfco7yh5e mHKGoYSedR29e bGF (more content not included)... [facility] Progress Note - Nurseon 11-10 Progress Note - Nurse Spoke with Kailey and informed her that pt needs to be here at 1145 and NPO after MN, she verbalizes understanding. [Electronically Signed on: 12/03/2022 09:36 EDT] Davon Miller RN [Verified on: 12/03/2022 09:36 EDT] Davon Miller RN [facility] Coding Summaryon 11-27-2022 Coding Summary HTMLBase 64 GgsamfkpWKv1sCh+PGhlY WQ+WP6LZJVmV38mvCIppG 6qX4UJOSlMTdglUNAMKAa VLzKplqTaHW4blMBeKRIt IC8+TE3xCCBkLhgcbADlr 4D5dAW5G57ueg0gJFwfpW D4NCFcUsMpuglyh8gswYo 6IDcuNmluOyBt BUCdfN39XIP8sB96Sg86h QQaiJBou6ahnWk4HeIxNF NvZKL4qPreCTxpr2LmFNA lT11wzVYdf2F7 LOVtxHeuvHLaIiTsySQ2w O2qUIxroqetu6cidxfpNi d0qt37yJJzn2D0pUI1E8I ymeJ2ILNnuRGw RlbwaTVUjC5hjypbk9bob itzAsLlBNJqOCt2KBk2FH XtzLnjFhOeDJ53CYX3DIL revWuM8YfHYMk pHajOvE3z1C9Ub6FJ2RST exsG4SSLHOWIGmnfOI+PC 64dt48I5OtYnjbDoe6XFG bHNG9nHE9pD3v CMBkECmte0H2vMK2T2Hno uBpew6kk7zbRYGzKCkxK4 3wfXWsu0E5BXHimXY2ERD rfRhdDuGriK18 Oyc+OJIshZngn9QcVfvwo 4yqq2tawIx7UrtgXVJuse FjhEgiOEV8b8YvLx1yJRG wrHD4jQG8nJ6e YtFxZmM9PLbcG991NaYik DEoYsqyJ27rX7AjnVO+PH IeSkm0TOEtvThtMA3rR7P hZGRpbmctbGVm vGvyOT3gXMNedcriRCSpw P2rSQFiW7c4YqIvXqH0UD qiP0VnRCTnhjkiPp10iF1 xJsWfMmC9QDun F1WytnN9AOVtdJSdKKjoS IU2P37ob3S3WYWlYDVoCJ R7hIX8mE8icOagmtutbPR mdDsgdmVydGlj VLpgMEmsK923KRLruBtwF kNvZGluZyBEYXRlOiAgMT AvMTkvMjAyMzwvdGQ+PHR oJTQ4pDkpYHVi hTOuQZmcAe0ldYisiFpqS U3bBTKstuxmQFJzzR9jBI VbrRHmgRukMQ3dRMXlhzx yu561IaLhARM4 SVMywIQvB2NwxW0fCsBvZ VFeJLKeD4RuqIKaJSmbG5 03VLfdEdP7DDEquvEoH2A sLWFsaWduOiB0 y3P5La6Ak1AnyoxgO6Dbr BPnQqFlManpTJg8L7MkQn wvdHI+BY67EABkBY56PJt 2HZQ2iPomXRno VRKnT6KpkZ8pHiHeFUPgU GRkOyc+PHRhYmxlIHdpZH RoPScxMDAlJyBzdHlsZT0 pNu6rBYItENXs fVvebXQuOcMes4wmXPQwY CyhKA1jdNwkO3JcxDD3TF Qtx3h4Hf41J49gD9FqmFS +CVFrvJC7jDZ5 lU1rHwRhZmA9OKsiP328I fDpgIAaOcgrl4eri9cqaU h0OuU2KGNwosPvnXosNBA 1p0PjOe43M66y IHdpZHRoPSIxNSUiIHZhb Mwcuk4ymG9hIz8+PGNvbC T3tCT6qY9lOrMgWhT8OJh jF391HzEesGCu Teued6eby5mxcQx9HzFsS ZFyceYxtQjdQWS7b0KiWx 89S1LedYhpx6QvTph1kx3 7fJJhz7O8zXD7 F6KiNGYaoyngySZlvMzsN N1kYTHxtgyuOMHkbP3iNM VqU6u7WbMrGeT0HRdzQ3R jzxI7AMGcdDRp WEDrqMIUzU9enosmw7vqa oulZsDfPAPjHFu7QPu3XK VyiNhlYkSaDQX1OsE3YFZ 1oVYluW5voKmm icwnjF2sDgy+ZUX4vOQeb VOHNW6eTcmhyTN+PHRkIH Y1nAcsDScbJSNzkB0dYMS rP1h5TrAqDsN7 CTxyP6RtidU2USNcpJXiI WEjkMKFcJ1cbjxnh1yazx kjOfXnZWEbMTn8ZXt6KEC saWduOiBsZWZ0 SmN2VJL1zHMmgZ4qiOdii vodhQ8kAvh+QmlydGggRG M0XMp2P8LsQma2MLIeeCw fIO3gsYGzYDao Js5zePbvpNojFM5gZCInm qbmy738ZtPjx1wxBVWaiN TgFShwKPJ5J70ff0U6UVQ oLPJpIUR1kPX1 xY7foHmtifhxeJJdtGhvc cFhwNddHVopCMnmN945YO YflAyoNhVzOVw5T2YaSjb 4XYVcoHteQZ7d hQItUQpnJl5lxAcffGzkZ U7hWWEintyse744EaJoq4 xsAGGbaSGlSEumCRL2P17 ny2J6QDZiCWSh XOZ1qNB5uI8cfMsefuuxp GVmdDsgdmVydGljYWwtYW zlN512JENfyMwyLpYapDb 6D6NuUty1JAJy eAgcHJ0rwLIhJAxxNi8bw OmyzRgeLY2xUNFxzuoel4 58JbFpn3wzVHMhfROfKKl vGXD6U24ba1V7 RMZqFJKtMSH8fYE3uQ1uk GlnbjogbGVmdDsgdmVydG osWHczGJruI571RLNhqSn nPlBhdGllbnQg YCydMFp4D5SfRprfnLP+P G05FWAaXX71jFWtpQLdp4 nloPv2HwOyLZNtSDD4fJd dUDfbz6RqFVRs C02owLLda3H6KYCqmCadt DLlPdAlvCR2eD9nGXcsjf ofj8vxkxouPuraq0uaka5 3xC68Z87rQSzc ZHRoPSIzMCUiIHZhbGlnb u6rvG3lAs9+PVCvcSV6yK I6hW1fKIPzLnV9UZerN17 9InRvcCIvPjxj s6imj3zweHi1WxO8YLRck vMlnOxcQHJ7z3IbJf68Z7 9sIHdpZHRoPSIyMCUiIHZ wtYnqll8bsI6q Ii8+XFHzmHD6gKO8dR6uB yRiGeL3TRflZ584YvCzgV GqAcbxA74wQ0BmgVH+PHR uWlt2CFCjfOog XR5aePNiIGfyUt0cNMV4G oLvAjZoRVkwU5GtFNNjug oqitwxcMR1UBNsURMgfH7 2Ox0agJboSZKg qMHDaW3ldxpwc3gqvrrjV xWzYASjFRv7EVk7KUQpzJ zjIqRiLBO9JtC1JJA9aID phX5kdQudrzwb uE7mQ9JzIVUqsvfbEc17l F2iTmSeKgE4OUdwGxh+Rk SOABBWCBLAAK7XRwFZCJ1 6BF43dUOhh2Q0 qNY7B5YhKFAqfqhvcsazo CM6FHTiYUSeyP88iFNkWF tyKw8zk1A5w757NKZkAJN myF68Uo9qdEaz MLUikWLFwG4fqmgdu1uhi jxtRdRzNKUbXXs0ZPe3GW GsuGpxKgRfZRL5QqQ4FVC 6uKLlqG9lnPxh vzoztL8sNrk+MDcvMzAvM Ea5UdivdYC+MPUhULW4eV ppEJjqYLWycO2eJTXnW0p 6EgPyCaX7NKpw L6BzNHBnvsflAk13sE5mM wKlGjE8NHuuW9EkpiH5FI PuaFYrLDjxQIK5O84pd0E 9DSSoUOTyRST1 yMH4bK4rpSgnwxkdeUZry DsgdmVydGljYWwtYWxpZ2 57ARVkbEkjOhB3UUvzBMB bRL22NU46uCHh u5T3bLJ6R9BoYYZdwxuyp qlxbUF5DQRaUYQqtH35mL WfKQrpDb8qd7I1i947ESF vTTAjvL93Kb2w eFlsXVUbbQPGdU0cvveul 0cvptybUkMaBKRqQTh0FX d3TGNytMtkShRzETA1ExP 1VWS0zRZpzV6d vDkpbfuipC2mSup+TUFMR TwvdGQ+NEHyXIA2mVhmKB krZVIyiH3pKXMvE7v5McZ pPpC1LOriI8Yy IOYloxwjBm10nN1vBbXdM lM6ZXhjI2RzhxG3OJBarY YzQMgqNTL9Q97nq0B7GTS mRVVtCQS9uRU1 eC4lvWpmfbhvdDSbaIach gQfjCypRUhfLAwmW659ZG NcjFhgUh4JIJ55PZ63D5Y yPjwvdGFibGU+ PHRhYmxlIHdpZHRoPScxM QPbRzYmoYrpPA0aYu0vWP VmALExxBfjxQVzTkWkf4s yZWBfCQbuYT1j bRccF5LydWH5ASMsq8f9W a71J48zY2CguDF+PGNvbC D1rIC2gL3uJgPiWhA9GAd gH447WqXfdCHd Ybvig2qcn8enoZn2XqUuH VQulsVqtYiaZQV1p5WaAy 38W08tOBmsTLPePNRpFEP eVNVnhMecrp0y lQ2eXw4+YJOilKK9aUC2s U5yYjJlWoB2OPpvN020Fw SqeWWbWahsP43xW9WwwGN +OUNuOzw8YHMa fKvqSA4iyWEeLKheSi7tP KB1FaRwLnVgVUeaG1JhSA AwrudvrpvhtOH5KHNgLYM udN52Ji5dvBit Wr0lFRZsITU4TIQzsGFwC 5AnuO5lWrDjAGLpZSWgY8 GijRCcGWdqS148PQuxBaJ 7TLXrtaLvO5Ze ZLLjfDwcFmW0o0N2At1Cz OmkwPCkTB0lBnItZRm8L9 SySzc6WLSjrIjeAN7zpRF pDHnjDj8tgPji nMlkZT6qFUJiomtgb581M hZkn5xkDMBhhWNhPSqnXQ S6R28wu8Q2LYXfJJSkKZC 1dWG2nF0ogAbc bjogbGVmdDsgdmVydGljY GwwDHmqC166SWAwiGldGw RDIfc6A4VbIik9FJWkyFv aWZ7fuZGzANxw Qu0ciGzotXopLN9lAJRyb adsp635JoZnt6fuCEFumW XjLExlAHO5A27hn9O6IAR kUFKqINF3yVK0 nK8yqTedbmqigYYzrGodg hVgyLihWOjbHFlgT844VI AvcLrpMd7OQiw1Y3LsHfq 0RWKhjVqkNM8c cXXpUGlrMx9qtSvpkRidJ I5rPVJxdfybw431VxNae5 gmPQTppQZaLVzuKCS3L45 aq5M0KYZwLWPz XMS1fOH8gO6knBhnlpvsd GVmdDsgdmVydGljYWwtYW njS747RDPaeWacKzHegLK yOjwvdGQ+PC90 em66I7WaXmjkEws9TVBoM RQ1fLO1nP9kHFKnUXtnr6 D3eOT3Z2QxwoGime7hl9q fEVMjEMssC75e bGF (more content not included)... Normal [facility] C Urineon 11-20-2022 C Urine No growth at 2 days. Normal [facility] Comment on above: Performed By: #### [id number] ####[facility] (DEFAULT)[address] [place] [address] Provider Orderson 11-19-2022 Provider Orders [id number]#1. 00OTGTIFF [facility] Office Visiton 11-14-2022 Follow-up visit [id number] Lisandro Montenegro 1955 M Date Provider Department Center 11/14/2022 [id number] GARIBAY CARD [facility] Family History Problem Relation Age of Onset Heart attack Father Family Status - Relation Status Age at Father Level of Service:45960 [place] OFFICE/OUTPATIENT ESTABLISHED MOD MDM 30-39 MIN [facility] 09-30-2022 L - -------- Specimen: [id number] Received: 09/30/22 Status: ROSA Lindo Num: [id number] Spec Type: Surgical Subm Dr: Eldon Castrejon MD Tissues: A Colon Biopsy (SIGMOID POLYP) Procedures: HE/Yogesh, Gross/Micro L4 -------- Age/ Patient Sex Location Account Attending Physician -------- Lashawn Montenegro 67/M [id number] Eldon Castrejon MD -------- SPEC NUM: [id number] RECD: 09/30/22 STATUS: ROSA LINDO NUM: [id number] JONO: 09/30/22 DR: Eldon Castrejon MD ENTERED: 09/30/[address]: JORGE TYPE: Surgical DEPT: S ORDERED: HE/5, Gross/Micro L4 ORDERED: HE/5, Gross/Micro L4 Pathological Diagnosis Colon, sigmoid, polyp, biopsy: - Benign colonic mucosa with prominent lymphoid aggregate Clinical Information Screen Gross Description Received in formalin labeled with the patient's name, date of and sigmoid polyp is one vo tissue measuring 0.5 x 0.2 x 0.2 cm. Entirely submitted in one cassette labeled A1. Microscopic Description Two H E slides reviewed. The microscopic examination confirms the diagnosis. CPT Codes 26277 -------- -------- Specimen: [id number] Received: 09/30/22 Status: ROSA Lindo Num: [id number] Spec Type: Surgical Subm Dr: Eldon Castrejon MD Tissues: A Colon Biopsy (SIGMOID POLYP) Procedures: HE/5, Gross/Micro L4 -------- Patient: Lashawn Montenegro [id number] (Continued) -------- Signed (signature on file) Alireza Diaz MD 10/03/22 1620 [facility] Coding Summaryon 09-03-2022 Coding Summary HTMLBase 64 RgjzznweSWn9gCz+PGhlY WQ+ZG6EPHUnO83fxRQbwJ 3gI5PSSWcGEuyuQTFQHVd PBuEjywEoIV3uhKVvQKQj IC8+GV5kKZNlKrmbmOWam 6A9vIO1E02bqn9fRDcrxB T1ZUIfLnAlkoyyg9ysbPr 6IDcuNmluOyBt AICmrU91YVM4dH08Hx66p AHnjGNeh1nxvAd0UcDiIK TxYAD8jHibPAlwm1SbCKR rL04qyKFoc9D1 JAYccLhreCNmSeTtmCA0h H0iUHdmpjgij9blqtqrFe e2jm40zIHia0C1pUY2W7L vsqS3JIRbrZOd ToyyjMBYmU9qrodyt1nmf wwtBcNzARNrHUw4XOn3NN PjxCisOyFpBB20BTH9PFE kxqUgB6JtBDNo aEkiPyV3l4J2Js5FU6PCB yalG8JGJJNDAEgwkHZ+PC 86ys15X5WbGsrkVgk6MXL nEYH4rGQ7zR1v XNCqIWkre7J3fFM3S0Sdi bCjiu2mu7ccUQUjDSmsI3 7cyUSej5C5AGHhbYS7DJC coBbtYpYluD40 Oyc+LBQjuHnbn1GoAncil 5meb3rytKf2FskcTMVrcz UbqAchBPV6i2QsNo8vWFC htFM7aVZ9mH2x GfHdOfQ3KHksV323CwJky UHzBsmjN51xJ4DobQI+PH NmPpq3KSJuoHjfBB3kW0I hZGRpbmctbGVm iMkyNB0lMUVamnndWIOha C9aCKCtZ2i4GqZhSeQ5AE wuQ4EjQSIlxcgfNv35hR3 cYnYrFqO7PMjj A2JijyR0QSVflNOoFEkgL LD9Y39bg6M6VWTrIDWvNE R7hNY8cF2osAqrjyhjmDI mdDsgdmVydGlj GVwxKKhaR902VFUzdWvxI kNvZGluZyBEYXRlOiAgMD cvMjYvMjAyMzwvdGQ+PHR mXTD7sPiaBWVd iKXhILggZe2dgEumjXqpX A9mHNWusvxyUFAsjJ0mYJ JkwXXyqMcnYI4dDJVpzic rl391JyLbRZZ1 PFYcyTLdW6JvzX2uOgXiJ AUeNNNbM1VjsOFtNFwyM9 99BIroJzU6ZZOoozXfF1M sLWFsaWduOiB0 e7Z3Gm1Xi2WtscmrZ2Neb NTpWiVoGsnpTIo6B6XeDm wvdHI+OX05XZKyDA39ECj 4AXN5oUwlEXsu AURxM8ZwmY5bHyWfTQTmM GRkOyc+PHRhYmxlIHdpZH RoPScxMDAlJyBzdHlsZT0 bLa8uZKWrOUVo aGifuZNkWoOxr7lgGSXrU EwoXE6ugSyjY1MreWB7IK Byt1q5Hf76I95hB3MquOR +YSOsqTK9cTX4 fF9fUwIcHnA7DBwzT614X pRrfMWyUdqez0cgy7exiA n3UwL3JCEfyvBrqYfoYNA 1f1OzLe78G99i IHdpZHRoPSIxNSUiIHZhb Iiobw1sgK8eZh0+PGNvbC M1xYB5dK0tDbZvNuV3DQj yH978EcIdvVEg Aihpc2qwf0gxqQb4AjTpH JQyooMgjTocIXZ4u7KfNg 55Y6PnlYyeq2EkVrj8re8 3nUWbx5Y7dKC8 S2ZwUEHspgzteXPltHzvW H7iKZHolemhILUdzP1zBO PuK0g2YsZjBjP7ZAxeJ5I jvuV3SXOphJEz VWVamXVGxY5jdcvmv5yme eatXbYyQVRsVRj8FLw0VI YvfGbuUrLdUUM0NqI8WKF 3pRTilR4eaDoo hhepjS7mVbz+HFR3fLIwz SVIIU7wGhffhDK+PHRkIH F3kBpoKZrcZEFtvZ3gENG hK0z5IyHtRkJ7 DZqjA5BhubT0MJAxsPBjL TPmiCRDoA3iafbgr6bwei paQqZdWKYkRHv3YEu9LFR saWduOiBsZWZ0 ZgC5HLQ4uWGacZ7hiQvat imkxD2vSpk+QmlydGggRG I8SYh4T4XrWcg5IZJycAx ySH6qvWYyUMqr Qy4bnMfbkGccDI2vEWFfy dcwm513BnWty1ulJQSurH JyLGmrTER0M20mp4E5ABE jYDQdSBE9pXO7 jV9xmRfkptpuvDLtzOrff iQcaRddHPanEGlkH161OX BmiRnnSmVmNWv0G9LmXbr 3UUIvjGizDL3a bTQySDmcPp1goLxipTtjT Y3jIBSexbhir010BsXna2 ymPLJgdTBiTXqxUZA2R48 zj3W3JONiRLGj FZV6oJG9rC8naBwoqrzdi GVmdDsgdmVydGljYWwtYW xnK615CYXckTjqYqMmdYt 6N7PwJuv9AXSz yXmfIS4xhIIeZIklBp4fa FemhSxcMZ4qXPWivwtsw6 24LbDoo3adYTYxxFKqECb pHXL7A05uo3E3 YAKiGAXpEZC3hXI8qC4mg GlnbjogbGVmdDsgdmVydG uoEEyuLXsiX105FZGbbHj nPlBhdGllbnQg AEmcUXr5T3WdNkwhfXB+P U01XAMiOR73gNClxRDbi3 anvFj5MkTiITOzXLN9oRj xXKqdo4YwPKCv E36lwNUes2P7ANPxwVhgq HYoIgKxiFG9zS2oCRwfjk dtd1idcnfhKsegs3johw5 7aM93X91aHNes ZHRoPSIzMCUiIHZhbGlnb x0qwJ8dFz5+MWMfzYW6iS N6vK0iRLQcRfQ4XYajX88 9InRvcCIvPjxj n4ziy5vkjKu6DnA8JSQjb yUicClaNZM3b6XlSu73F6 9sIHdpZHRoPSIyMCUiIHZ woZecwu6rpM3w Ii8+MBYapIY1fMD9fC5oW iVtXyV7XYabI915XiWcgR PeVpeuY17jZ1WyqMC+PHR lLpo9DXMboGky MH3dfKIqIUgiJi7lSYD4R sQiJmQiTZdpF1HkFZKked fnoimagLO5BCXqKZRacL4 0Mi3dmBndULDz pIQCrU0kskucd9ybesjaI sZaFFMaKYo0AFi4NNTerA hgZuYuMQZ4ZvQ2GTU2eML fxZ9rwAbnmndf uJ9xZ3ZzJIFoglupEb57g U1iMfVjIaC5IXauJdy+Rk CEYHKFVMLSVS1BMzWJIC4 3UI83uBWcx0E9 dFS9L6SeWLQoirevmmwcj ZB0PDWkAYWwkD72aQUnZP jqPd0jy7I7a440EEIvVXA wpP69Pj1ihPzn LKCloIPFpJ6bahwyi5san dokBnCmXJVhDBn3OHf9VT CwzEcdNaKvICE5IeE2WFU 9iFQtjA2wyAor cgcpaL9jFwc+MDcvMzAvM Dv8LhowoWO+VVHfUAJ1mK soXHdjXPWjbL6mDVYxT4x 1KtDuSxH8UDma I6JoAAJfrhzuGn41qS6vW hEqDhX9RPefP1NmlkJ6GW YqhEQpRSddPXF5S89es8W 2NBNwNGJnYJM0 zQF5dA6khByzccdlmPBsr DsgdmVydGljYWwtYWxpZ2 33VRYlzKcbZmH4KWaxOZN jQB64CE71sXPt v1I6hAK8I8AiQBWwqbuqm cpkiEO2WOIyPDRjuC64vP HmNMmwTd7sg5C0e650HXP eLXZqbR62Pf9s tNanHBWykVLGhV7dcurki 4zvqxqqOuVhLVGuEBv3VZ x7CXKjjGouNmHnWFU4PqC 4LNE2rKCbeA4y cYdslrszqE7uQiv+TUFMR TwvdGQ+TPKxPUK9zBhlNI ujZPChrN8vYIYzD7t8TpU mIdT9ZKnyL2Mh NJTmsakhPt60uN0oPlAvE eE7RKdeL0AedzG6XXEbuP RfBYvuWAH7C69js4E4MWE yRHThJZO6tDP4 fW0kmSacsklzpQXtzOwst zQgsLgmJOgjLUvqY270VP FjgNwuGp6UWF57NJ87P7G yPjwvdGFibGU+ PHRhYmxlIHdpZHRoPScxM DShEmXvmDcbZJ7jXk3aFS UhCHRcePgzwOKcBdHwv0r fFGMeJDtlGI9f nPfeT4JfgQO4MTXyc2b9O o30R67eO6AthYF+PGNvbC F9mFR6wG0mCcHyJjR9CKu lF852AqKhyAUd Gvdqr7kma9dipIh6XpAwB WRrpoIvsWnqHGT4k7PeUe 08K54xIUtdVDPlZSVzJMP iOLExkZqjtt4m eA7mHc2+HHEynQS5fDL1h N7nNbZbXgN1PKipP610Hn HwoVWrPswzO92tK5GnlOH +QSHcVvc1MLGa vSmcUI7tdWIzKKufGs9hV KK0LkJoEaQvENfnM1CdJR AzbiinzcjmzGD9BPMcZLC ngS85Ko2mpArr Zt9aCUUpSRW7IOBgjRHtT 5EdvK1vOaFyXIVmCKAtG3 BjtTSzNYhqC532LCepDlN 1JCMbuoVjT0Qz JIOdqFchOxE4m7D2Jc5Lm PeijNVrGB0tLiSzFFw7S1 MvHbf6XOYteMhyHR3iyXL iQCluSm1szJyt uXblKA7zKDSvdhtys812E nDpl6pgCVJmrBByFDomBL A9C76bl2X8ZUZbNKVgVYF 0hHU5bV4laYhq bjogbGVmdDsgdmVydGljY HfzLTxjA848JZMgcEqvFi LEViu9K2NtBvb4DPArsTd bWE1ciRZdRNhv Xx2bdKrznXktPS6zELYgd nduy991AiWgx4orGEBoaQ WwWUtnMLY6Q83bc1X2LHA qNTElHGC2dWK6 cO9uzBmlaiuktUYuyYxwq wPrlBfcUIzmEAxxE709YP KafRsuXh1BZoe2L1IoCnv 9YCLwqLkuQF6f bJPyDJowOd5rhOwlvUgdV I8hEITxsxlxz753NqHwj8 hoFASuvYAlDNjyFJD0S18 wv8U3AOBhZTWm THJ1sZA1sX1fsFiytxiih GVmdDsgdmVydGljYWwtYW ktF468KJIlhIvoFvCzbOO yOjwvdGQ+PC90 tq18E7DgCfgnAdj0MSVdK AW8rTJ3dL1hALTiJUjam7 C4jKJ9Q4YqmuNtgq7it4t rDMGrTSfxC36j bGF (more content not included)... [facility] Coding Queryon 07-28-2022 Coding Query [id number]#1. [email or web address] [facility] Coding Summaryon 07-24-2022 Coding Summary HTMLBase 64 IbaxaejcELg0aLp+PGhlY WQ+JI1AOHSkH91wgCIroS 3tL3FXNViNJcfpPZBLAOt ANfOgazAgUN7dzNWzBTOe IC8+YP4pZPDpFdqlkGFjj 5V5oRE3I20fce0mFVwvxC O2MNYlLuJnwcwxq8obwDz 6IDcuNmluOyBt JJAfhQ54JZU3rK29Cx30e YCkbJFec2pmdRn8EdRfKB TgBON3lOtiCJrjy4RjEHI aQ70tfEDct5K4 ZHEjqKseaXSuEyOpeXU8i J4uDUafoecds0riivmwLl w8vf78zVPki1O2yXY2J3Y dcgJ6RAGwjWPx QjqnyGBGwE9fyatng7xpi ddlNxEeVMKeQUj3QUt6DL ZpySanBvAlMY22TOM6HNW emgOfA4RqNHEe vGjoLwQ0f3M8Pg5DR9BVX oqcJ5VETIGYAIpqqQQ+PC 85sa85M2HnThemOkq2ZHU dURM8jSC8sB8r ZVGnQTpqu4W4iBM1L0Wpx qDesj8ux1inDIGkDJouW2 7wgPAas5Z5QIRlaDV7QDV bhYxqZsYzxC86 Oyc+IFUanIcys8CgPdxxc 2wbv9tubKu0GodmJSCxnw LixPljARY8d2FyWw4fQTT uyZH4iSJ3lR3o KeNyBdG5FFnzB405JcMek QFkNyrkK00eY8FhgWY+PH UqJaf0QWChcDfyAX2oG0V hZGRpbmctbGVm eQfpOS1gIWDaprhhRAPjl T1vSMIiS1m4SbQlXjG8BS csM2VkJIMiogipQa16fA9 cXyLfWqO1EMgv A6OtveR5NXQdjTYkLNjfT SG2Q10zp5W3VZVnFFJtCU Z3cCI0vV4gwDfgbswkqRO mdDsgdmVydGlj CIyqXVfhS961OLDrvLtwZ kNvZGluZyBEYXRlOiAgMD YvMTUvMjAyMzwvdGQ+PHR hNLV9fBvwIUAc jVSiIXmuKe3igChkhDfiR M8wJLQbilhnJMSfiB8aPS PmuMTgpXtkZX5dSEGgltu jm689WpDyLZQ7 FYFmuVQeM7YufJ2xLeDhK WJcZDJfG0AxfCPrNVohR7 97ZAadCdR2HKLrdmJcG1V sLWFsaWduOiB0 v7P6Jk5Jx6JolnbaV1Nip VRdDvQnAjwpGCt1V2EhUx wvdHI+BF90SFCrWF34YPu 6ZAR0aFobSVwg OMFqA3PwvU9lLnHjFXFdA GRkOyc+PHRhYmxlIHdpZH RoPScxMDAlJyBzdHlsZT0 iIc0vLVUoCQPb gHgmsONvZzAgo1cyYOWbD AuyHI2sfZsfR7NhgAQ2VA Jac8c6Kw92E64aQ5EvvXK +ADIqpFQ6fQT9 wU7cKlKlWuD3ONmpW550Z ePfwHJcIodsv1fdv2orxK h4LrR5FRWlafNaeCldHCE 2o1AdIm18M02v IHdpZHRoPSIxNSUiIHZhb Awthk7tvI1uFb5+PGNvbC L6aVO3cT3rEvKfIcU0LKc iD679FeCsjSGp Mmpqm6tmg8nbuZz0QfUdC MXltsHeyKodQWL4h6ExEi 38M8JvlDwli1YdFke5mx5 2oDYmy7X0bJZ0 G4FhFBFghhtyqKHhrPmhO W4fBSAcczxsTYWraU0vFB HvM7f5NvZcFpU6DTpiT0X zniR7QWFnnZLp TEZwmHXHlQ1mmodxi2bul ecvFoSsZMYvFYz2AHs0MR WcyClqCzSuUDK2IxN0DDK 9xYNikY6ziSpk dvzooW3hEzc+XZU0fHMri TLZKB7fNqrysFB+PHRkIH X7tUoyVSifVPDebA7qPNT hY0g8CcIqMoK9 BAggP0MjcqY0SSOvsSXtT ICemOTHjP7upytib5cwvu jgOaLsTFQnZAt4AUl1TXE saWduOiBsZWZ0 XkK4SVA1eFYwfV3rmGoja ouquN8nTxc+QmlydGggRG Y9HZh5K0BgCus3WKEafOt hSC4csXJzKBfk Yv9ajBzkwTcuNN3cMQLil ecmu492JkItl6xbESOcdI TqDYemXNY2D99tj5R9ERF lMEGzJSE6jLL1 vZ6lbUxtcpcwfRRynTdnv aFmuLnpRPtfAMyzM442MT TxyIaeXvRtGJj2I6VjSnu 5CYZfeWcmLK1f kDVgVEqjUo3dgKfhkQfiC Y1zSHWcncyxo750MdRiz5 zcLOIfrXGlPEndPRB4R15 yn1W5NRGcMNKw SCS0pIN8rU1kcXmsbbfuo GVmdDsgdmVydGljYWwtYW fdD779AFJxmVsvUcYkjUs 3X7PzWep0DRZz dTvvWC4vhNAtIDxpXm6ga MhwmWbwPB5eLNYhhjnhr8 13SlNpy6ngBJSqgGVtPOy tDIE7M46zv0E8 OAWhRXLpSJU3mQZ6nB1my GlnbjogbGVmdDsgdmVydG maOVzbNVptG941TTMwvTl nPlBhdGllbnQg SCjwBYf1Q1MwHsonbRA+P S44CYIgLA07yLAtuTWiu5 phkZa8XgSpPKVhFWC7zQh nTPwdr1BxZEYy L44brZAzp1G1ARLljUjyp GCkFsZqpBO8zN1qXTywop crl5uetpddDszdn8mxys3 8nL97J67vOUxt ZHRoPSIzMCUiIHZhbGlnb z1udN2nAn7+POQabJE1fR R8mT7uRFVbSkK4EKcaC05 9InRvcCIvPjxj j3tag9msxGl1TfX3LUEyr jKpfLdmYUI9q5WmCe90O8 9sIHdpZHRoPSIyMCUiIHZ juTjwar8raY5w Ii8+MGGmvYY4pGI9iN6cF wDlFcR2KLacE682OcFbyW GxLwhaH74vM4ImzHJ+PHR yFkm0HETgpCjm VZ9aqIOaWChmQj1nLXI4G dHxDnDlFUjtQ9TkIOBogb nuxooqjNL5KTUtKTRajU3 0Rq7qgBsgMFEq oXXPkJ8hshvwv5xwopjhX rJiSIMsOXm2VPh7QLGkhK nkKwDaLBT7EaR1MES5pEZ ypJ0vvTlabjsu wH9uU6WfNGHrlfxfFk79c B1aImOeKeF4FFtoQay+Rk YFTYZCOLSYLR0RJcABNP4 9WD95eGFlx3W5 lEB9H7AkWSCvyxqbmovrv LV8DZOoVTRfpP88bMXwSA qgYx0po7V2e835APBgNKT csP75Dp9otMjc AZWwbKAAaF4semevs9lvc fwhAvFsJNGfMHn2WKv3LG BtnZpqIzQeJJC5KjO9BOC 4mLYpfF9bbXoq jjekeO0uCzq+MDcvMzAvM Tp2IlmsxNO+BQRnXKW8aL xiLXacMHRozT2dOMVgY9c 0ZgQrRpK3KAmm N5ByEHXdigwlZb15rI7hP sDbOxX4OWgiD2JjhfY1BX RrsOQjOBckSTW3U35jj1H 8HRBeTSYeWZN1 cML0fU3mqBraznzbmAHcj DsgdmVydGljYWwtYWxpZ2 43KVDcrYtyTbL1OItaSQA eXW52AQ22mLVp m0G4pEL7F6UeWLDdczpfs tahdBD1DSCyRRHzsZ00tC FyGBdmNm1ih1P8x672CVX oHLCvrU11Yk2d kLoaWHUcgCPBhM4kimrgq 9lslcxwVnVzIGInJFf5NS c0DQEzdZhvIuXvOIY0IoD 8OPF5wFVzuY7o xXkbnlqqfV9sIdl+TUFMR TwvdGQ+HYKlTKE6wKlmOJ gvWVTuvA9jGKDjP0g0SjT eDrW1XEzhI8Jx GHIccpltZr16pW0eFtIpD gS7YYjdN9BqinW4PGKgwW IuYGplMFU5J38fb9X9ALT fOEJlICC1xAB9 cH0jrDqlgxjjaOQsyUxkh rAviZhdTSjsNOgmN073MY WsyQfoDk1HID81SE06T8R yPjwvdGFibGU+ PHRhYmxlIHdpZHRoPScxM RAeZrOrzMpuFQ6sLf5aWE FlPZLlePduoTKhEtNql7k rPVAePDcsBZ2q mDpwQ6RbxXR2NOLkd0w3Y s02W85pA8LziLZ+PGNvbC M3mIV0kT1zSpXpWyF7RRk zI768FyJweGVj Vozeb2you6yhwFf5TnPkI LAqxaEhiLbiTEF3k7QaYe 63X09pLFwlTUFrDYQsRXK aMEMqtJvely8d eJ9bJn4+ILQffPG7iSJ2j S5uXqZrHlY7QDuaU645Rh TcnUZrTmeiR05xQ8XpkEG +MTWgAwt2RYCg zJpjXH9mwYZkQQzkJt4yI HJ2NqKpZcGoFKdsO7JdRZ YvuylfileatUW9JBBnJCV gjS93Fm4etXzw Vn1tDISvMNL9XVTtdYZcF 1AhtV8mQaKfNYTfLFQiQ1 KkyYKzRMbdY841GEhoThX 5FWXknkKgI2Ru UTTmoBxvBxD5b4I9Sp9Xf UiggBEsEW0nNgGqKAo2F9 VnHro6CTAuvQbtNF3awNS aXKylOo1mxCbe dLbeNK4sKCOlgadmg135I fBiu6vqFOTrdESgNEaeOU O4F26fh3Q4OWBmOMXkFPK 1hUI3eV4lnAbj bjogbGVmdDsgdmVydGljY LidYIsxS515EUXphMxoAf WSEfn7V9UsRfb6WXCsxZd iXC1psUUaNZeh Kn2mvEgfzLykKB4hILYbo sxmp292KjKht7jlJXInoX EiSNyfXTL1Z57ps1H2XIX aLSYoOGZ7iGW6 rT9tuQwqtisrbJVbqRvpa qUsuWavBGapIOxmA220KF ZenXzrLy3GTwa8B8TmIqs 5ZUYapTckDT6h hVOuBEosFx2ydCodqGiwL L1zHFNpwjnet257NkFvq7 eyZSIejWZpFUnbTNM6A01 vj1N2VCUgNYYm YOB3lJM5bK2jkZhpckczi GVmdDsgdmVydGljYWwtYW nkG032KELmqXwjYdIbbWD yOjwvdGQ+PC90 ia81F7PfLsskXmj1WJOwG YZ6bUV3kP4nILNtMYzkj3 Q4cUE7C3RiopFalv5xp1j qMKChWWzjL17y bGF (more content not included)... Normal [facility] URINE PROFILEon 3 Bilirubin Ql (U) Negative Normal NEGATIVE [facility] Comment on above: Performed By: #### Elsa BARRAGAN UMICRO #### [facility] [address] [address] [address] Renea Rawls Clarity (U) CLEAR Normal CLEAR [facility] Comment on above: Performed By: #### Elsa BARRAGAN UMICRO #### [facility] [address] [address] [address] Renea Rawls Color (U) LT. YELLOW Normal YELLOW [facility] Comment on above: Performed By: #### Elsa BARRAGAN UMICRO #### [facility] [address] [place] [address] Dr. Renea JOHNSON A micrscopic examination will be performed if indicated. Normal [facility] Comment on above: Performed By: #### Elsa BARRAGAN UMICRO #### [facility] [address] [address] [address] Renea Rawls Glucose Ql (U) Negative Normal NEGATIVE [facility] Comment on above: Performed By: #### Elsa BARRAGAN UMICRO #### [facility] [address] [address] [address] Renea Rawls Hemoglobin Ql (U) LARGE Abnormal NEGATIVE [facility] Comment on above: Performed By: #### Elsa BARRAGAN UMICRO #### [facility] [address] [address] [address] Renea Rawls Ketones Ql (U) Negative Normal NEGATIVE [facility] Comment on above: Performed By: #### Elsa BARRAGAN UMICRO #### [facility] [address] [address] [address] Renea Rawls LEUKOCYTES LARGE Abnormal NEGATIVE [facility] Comment on above: Performed By: #### Elsa BARRAGAN UMICRO #### [facility] [address] [place] [address] Dr. Renea Rawls Nitrite Ql (U) Negative Normal NEGATIVE [facility] Comment on above: Performed By: #### ECHO RUBIO #### [facility] [address] [place] [address] Dr. Renea Rawls pH (U) 6.5 [pH] Normal 5-9 [facility] Comment on above: Performed By: #### ECHO RUBIO #### [facility] [address] [place] [address] Dr. Renea Rawls Protein (U) [Mass/Vol] 30 mg/dL Abnormal NEGATIVE/ TRACE [facility] Comment on above: Performed By: #### ECHO RUBIO #### [facility] [address] [place] [address] Dr. Renea Rawls SPEC GRAVITY <=1.005 Abnormal 1.005-<=1.025 [facility] Comment on above: Performed By: #### ECHO RUBIO #### [facility] [address] [place] [address] Dr. Renea Rawls UR MICRO IND INDICATED Normal [facility] Comment on above: Performed By: #### ECHO RUBIO #### [facility] [address] [place] [address] Dr. Renea Rawls Urobilinogen Qn (U) 0.2 {Chase'U}/dL Normal 0.2 - 1. 0 [facility] Comment on above: Performed By: #### ECHO RUBIO #### [facility] [address] [place] [address] Dr. Renea Rawls URINE MICROSCOPIC ONLYon BACTERIA SMALL Abnormal NONE SEEN [facility] Comment on above: Performed By: #### ECHO RUBIO #### [facility] [address] [place] [address] Dr. Renea Rawls Bacteria identified Cx Nom (U) CX ALREADY ORDERED Normal [facility] Comment on above: Performed By: #### ECHO RUBIO #### [facility] [address] [place] [address] Dr. Renea Rawls CAST NONE SEEN Normal NONE SEEN [facility] Comment on above: Performed By: #### Elsa BARRAGAN UMICRO #### [facility] [address] [place] [address] Dr. Renea Rawls Crystals LM Nom (Urine sed) NONE SEEN Normal NONE SEEN [facility] Comment on above: Performed By: #### E YUNG UMICRO #### [facility] [address] [place] [address] Dr. Renea Rawls Epithelial cells LM Ql (Urine sed) NONE SEEN Normal NONE SEEN /RARE [facility] Comment on above: Performed By: #### E YUNG UMICRO #### [facility] [address] [place] [address] Dr. Renea Rawls MUCOUS NONE SEEN Normal NONE SEEN [facility] Comment on above: Performed By: #### Elsa BARRAGAN UMICRO #### [facility] [address] [place] [address] Dr. Renea Rawls RBC 0-2 Normal 0-2 [facility] Comment on above: Performed By: #### Elsa BARRAGAN UMICRO #### [facility] [address] [place] [address] Dr. Renea Rawls WBC 5-10 Abnormal NONE SEEN [facility] Comment on above: Performed By: #### Elsa BARRAGAN UMICRO #### [facility] [address] [place] [address] Dr. Renea Rawls CULTURE URINEon 03-13-2022 CULTURE URINE Culture Observations : NO GROWTH. Normal [facility] Comment on above: Performed By: #### U RCX #### [facility] [address] [place] [address] Dr. Renea Rawls ER URINE PROFILEon 3 Bilirubin Ql (U) Negative Normal NEGATIVE [facility] Comment on above: Performed By: #### E YUNG UMICRO #### [facility] [address] [place] [address] Dr. Renea Rawls Clarity (U) CLEAR Normal CLEAR [facility] Comment on above: Performed By: #### Elsa BARRAGAN UMICRO #### [facility] [address] [place] [address] Dr. Renea Rawls Color (U) LT. YELLOW Normal YELLOW [facility] Comment on above: Performed By: #### Elsa BARRAGAN UMICRO #### [facility] [address] [place] [address] Dr. Renea Rawls ERUAHD A micrscopic examination will be performed if indicated. Normal [facility] Comment on above: Performed By: #### Elsa BARRAGAN UMICRO #### [facility] [address] [place] [address] Dr. Renea Rawls Glucose Ql (U) Negative Normal NEGATIVE [facility] Comment on above: Performed By: #### Elsa BARRAGAN UMICRO #### [facility] [address] [place] [address] Dr. Renea Rawls Hemoglobin Ql (U) LARGE Abnormal NEGATIVE [facility] Comment on above: Performed By: #### Elsa BARRAGAN UMICRO #### [facility] [address] [place] [address] Dr. Renea Rawls Ketones Ql (U) Negative Normal NEGATIVE [facility] Comment on above: Performed By: #### Elsa BARRAGAN UMICRO #### [facility] [address] [place] [address] Dr. Renea Rawls LEUKOCYTES Negative Normal NEGATIVE [facility] Comment on above: Performed By: #### Elsa BARRAGAN UMICRO #### [facility] [address] [place] [address] Dr. Renea Rawls Nitrite Ql (U) Negative Normal NEGATIVE [facility] Comment on above: Performed By: #### Elsa BARRAGAN UMICRO #### [facility] [address] [place] [address] Dr. Renea Rawls pH (U) 6.0 [pH] Normal 5-9 [facility] Comment on above: Performed By: #### Elsa BARRAGAN UMICRO #### [facility] [address] [place] [address] Dr. Renea Rawls Protein (U) [Mass/Vol] 30 mg/dL Abnormal NEGATIVE/ TRACE [facility] Comment on above: Performed By: #### GUMARO RUBIORO #### [facility] [address] [place] [address] Dr. Renea Rawls SPEC GRAVITY 1.020 Normal 1.005-<=1.025 [facility] Comment on above: Performed By: #### Elsa BARRAGAN UMICRO #### [facility] [address] [place] [address] Dr. Renea Rawls UR MICRO IND INDICATED Normal [facility] Comment on above: Performed By: #### KEV RUBIOICRO #### [facility] [address] [place] [address] Dr. Renea Rawls Urobilinogen Qn (U) 0.2 {Chase'U}/dL Normal 0.2 - 1. 0 [facility] Comment on above: Performed By: #### GUMARO RUBIORO #### [facility] [address] [place] [address] Dr. Renea Rawls URINE MICROSCOPIC ONLYon BACTERIA TRACE Abnormal NONE SEEN [facility] Comment on above: Performed By: #### GUMARO RUBIORO #### [facility] [address] [place] [address] Dr. Renea Rawls Bacteria identified Cx Nom (U) INDICATED Normal [facility] Comment on above: Performed By: #### KEV RUBIOICRO #### [facility] [address] [place] [address] Dr. Renea Rawls CAST NONE SEEN Normal NONE SEEN The [facility] Comment on above: Performed By: #### Elsa BARRAGAN UMICRO #### [facility] [address] [place] [address] Dr. Renea Rawls Crystals LM Nom (Urine sed) NONE SEEN Normal NONE SEEN [facility] Comment on above: Performed By: #### Elsa BARRAGAN UMICRO #### [facility] [address] [place] [address] Dr. Renea Rawls Epithelial cells LM Ql (Urine sed) FEW Abnormal NONE SEEN /RARE [facility] Comment on above: Performed By: #### ECHO RUBIO #### [facility] [address] [address] [address] Renea Rawls MUCOUS TRACE Abnormal NONE SEEN [facility] Comment on above: Performed By: #### GUMARO RUBIORO #### [facility] [address] [address] [address] Renea Rawls RBC (U) [#/Vol] /uL Abnormal 0-2 [facility] Comment on above: Performed By: #### GUMARO RUBIORO #### [facility] [address] [address] [address] Renea Rawls WBC 5-10 Abnormal NONE SEEN [facility] Comment on above: Performed By: #### GUMARO RUBIORO #### [facility] [address] [id number] Renea Rawls Coding Summaryon 03-12-2022 Coding Summary HTMLBase 64 YpvhsgmhZZt7qJi+PGhlY WQ+WD7ZQEUiB31pdIUbpA 6AD3hPBF7ZDDMOXLHGSO1 WQO6elJE7NXaqQ6GxifSg DpfebJGwRI40IDn4YWA0a OguYOnpzE2wkLJjO9q9Mu RgVK51pT23QBemPXYkDoV 3LjZpbjsgbWFy V9hkWfIkcGOyMnc+PHRhY mxlIHdpZHRoPScxMDAlJy LwgAojJG3nGe5pDYXrTOK vbGxhcHNlOiBj w0bbRCCiIHipPG4xjLlnJ 6XehUI4NHFwu5c7Fl23vC I+HGDwPKZ6tEmqSDmfb44 5EhQab2qsXRE4 zWQmKFvoPTI0W48kw9M9V IBcHUXcWAX4bFO4qW4uzR amozrtI0RrcODuKuB0SNS 9jQCvmH4ezVhi cpzokV2nGpw+J98JZE0TV CJQVI4FTxj4O4EgDcmiyJ I+LA11SLPmRV57vWMgpXK ag0harGf8OqYl FSFnYOU1pDpmZYkpv3QuK WRfB58gkNQra5K2BSValP zmpQEsRqVfjNP5zD5mCHd qhulfj5pdywia Jetna5vkcn51aK33N56bD AdsDXCrCTJ8CGAbVNDuvR lbvp7mrS2nAv8+PDorx9j lr2jczSp5PmBk GZJvdxVrhTjnJOS0n0HhD j20O4IobUpsz3GyEsu4mw 09dVLuc9T4lUO0ESndQOP geK7zUTndIgS2 DDMwCnJdcC33dUDhOYjlN y0qxCnxtOesRD4wMKRlhw gsSLPifH2tZSRyxIJyiSj iQT4iLOHrttwd c890HoCzLTV3EWTvuEChK 0RhdV9mLfEvZNUsMYFoN2 VipMRpDQhmL567WQtuJhM 0NTAmreSzT5Uz LNYiwLfmInJ6h0P5Mt0Vg 2ShbepeSKE7WPjhSEWkJi AvIrIuEcV5E5RiFwj4PDP wqDwjKC6oV9Cp AIIkwpgkcurmlCH1CGFpE ZUbwF91nGOvROunXp1zv0 J6g108XYYlIXFwtP77Sv7 udDogMTBwdCBU hV8anzfrd1nayrtaJzNmD PEaRZg9CIr9GGIokNesWt TwHSZ1IiR6YUI7zYAxgO6 yyYtmcczliI7i Oyc+H90ijM6iYMM8FKA4h egbDOXezfQfZZ82RV79H9 RyPjwvdGFibGU+PGRpdiB tzIqzGR6eChMs c9zux2IyENprG7ErPYVgS JasByv4NSYaDTY1mOJ3lQ 4iYTGsOEylg8Q7sPA2W2S ckwDrcw9ml5hp MTKgRXjmQ82lqYMsh8M1C UFutMU2NLSciZetFjUzwS 93Oyc+EIIfuQaki4UmBgu fz5nvk0oxeTu3 RlIiMXKrwiRczPaaRKK2e 4WlUp04L96sMJzkOAZnHL BzVOAgBLUpuEebjq8fuV5 wIi8+PGNvbCB3 iLI7tX6wXWYbKwK2LTpzX 885JiQjwNVqFcwcd7ftv6 bplXi6NrQtCMGhazBqyVx hFPK3o3TdNs05 M24mDXthHDLrYULdPLDpV LOdwKpjky6lhA8tCj5+PC 9xu6ummn06eK12kWY+PHR oATB3mLrlSEvv IJIrpU5kZTtwObM5WYLdY xMmcK49jQOyAFgjGc6iuE cbgUccLL2hIWOaoocee67 2AxWkv7lnERGu rGFqZPboQHF3A90yg6T2N AWhRKKyNDJ7lHY8jC9ihF lnbjogbGVmdDsgdmVydGl cZJleKXbiH904 IHRvcDsnPlBhdGllbnQgT dQzDFd8E4RhWja3KXSteH grRW4qqHJyPVodNj4vcYb riAmhIH6qSBLe esqjx300KsBps2egWYMxl EFvYSqwSED0I23zz0K8IB AhNJPhGXT6tMY0nR6cbQi nbjogbGVmdDsg mpYkcUcsBIfoRAvaQ504K HRvcDsnPkJpcnRoIERhdG Z5LE55PD90rLYjk6K3zRU 0C0QiSLBpqgmi acwlrQB4YWLeFPOosF97H y4qzEpkLe1zZGUmMSJ5KS AvaILdD3OyiL6cAtPbVXU qUBUvR5NdhBOs LNlvE171LYgwSiY0JFYlk iSdC0DpBEElfZmcPhG9t6 H8Qt8EW7L3JV29ZG45wBF kl5M0oMA4I6Ts MDGwybknerefhWC9MLVzG MTazT63Hd5zpHhfVp1vIS QsQRG5FQZkmCZvT1IjkR1 yOiAjMDAwMDAw K5LnvFHzDKnnT074PJgmG wC9KTNrfeNuO1QxNZRleY daLhY8r7I0Cv8ZONm8PI0 5XL96rUDxd7F6 nYW5N5FpYXRnpluiwueeu QY2MFKbDXRbcO34Ln1cyX gvEt1uLYBoPUT7WTGnqID xS7KfbZ4fLmHh BXOdHGRiV9BlsZEaGVesN 449CQlfYgN1XQJgvrAkI5 AoQHJxwRupPrB3n1R8Va0 HYCDwCJ38AXW5 wYG3PP16YE96I6FdAnrgd GFibGU+PHRhYmxlIHdpZH RoPScxMDAlJyBzdHlsZT0 jYl5hCORxVJWv hGwaeBEcTaOmb6qvUBItU HzbNE6qhHtpI4AfnOP8WS Xcr8h5Jc76G46mQ8IoeJG +BQXqjDM7tWQ5 jI6tHrLgMbJ5RBmiV396O bHujCUxUcclz8wco8legP j0HfY6BMSavhCvjUjyLGR 1r2LnGk03G32e IHdpZHRoPSIxNSUiIHZhb Cbbld5hyJ8jOj1+PGNvbC O7eWY4sL7hAaLfEmC5KVz lR645HqKupDLq Vycqi4ugl0qzdBa3NxGyR PFmgePlhVlsFDP0r0KoJa 57D9GldKcpf9IbWak3jc4 0wADdq0O4hMJ6 H9QuAHYxgkqnyLEdsQijU N0bTCPyopvrUUFnoR9zAS XzV0z9OyDpWnU5WOhbS1K fpwD1ZXRkdOBs JCutYAO2W89pm1D0GTVcF RTyDVT6wJX3aG0mfPepca ogbGVmdDsgdmVydGljYWw uLUwbQ173OIIo dRotXFXsjN9wVZUvbQJzn JmeYO3gUDLjjwghXlREEq xFWSwgSkFNRVMgTTwvdGQ +OHCnIRN2sUce QQeyCTZxiL7vBUEcP1r2U iLfNwU9FNkiQ8AiHJKyaz iaOh61pA0zRnXhKjZ9GVf uJ1SkldE3BLDm tPSgDDjkUSN4E33qd1R3G SLlRERnWYO9iKN4mR6nwF lnbjogbGVmdDsgdmVydGl lYXkjQTwcW826 COVmcGomWnA4EhTkVsO9C Qa1N4OdCiz8TEHluUhkJL 2yjSTvYLirEj7phYpumHn fRQ3hVLSctyaz LFSytJ3eFGHrcWNtcOexR U8dLZNcisldo872XuCyWG I0THQfoAEnZ5ZxqM5gVqU eVWGmKPRoG8Hy yQGqRMztZ452WDoiAtP7S YRdtvYxU3ClSGBtpGkcWo B0l7A7Bb52CXGIFZWqbdh vdGQ+PHRkIHN0 xDtpLLaoITQjoA0wXRFdU 9h5NpCbIkW8ZOlaI3IzLN SnxkniKe06qG8xTeVqYcO 1KKslW2WuieN6 VLJwzBXcBMmvUOG4Q13qh 4T9DZGzUNGaXWE1ePZ6hX 1hbGlnbjogbGVmdDsgdmV ydGljYWwtYWxp D726WPQesFnbBd6BNQQ1K 6JmQvj5TNQzfSggPL1cnD ZuQAuhEs4paYxdzOpyMO0 wNTBpbjtwYWRk kR7wRYRcxLQbdOnySV1zZ SRnovtxg130YwZkQWC8YK ItkGSuM0QzaE5mVvRxLKA zUAKwW5NqbIXb HJvkW515YUhjCxR3MTZaa oXwK5BnIRQuaOewUeP9z1 Y2Py0WKSidI4HqG5XgnIo vdGQ+FU28dy06 R4UkXhifAxa9FNPdGDH9v YI6wF7aGUWpBUoqu7V3dH O8O2QkdyWlum0qb7heIJL rTExdZ63hqPFw m6D7YULtnUB3URXerJwbK gOobF05Cto+PGNvbGdyb3 XoLpxqm5fzn0sfeXc3OxB wJSIgdmFsaWdu KME4x7YlLr75G07xFEoeW HRoPSIzMCUiIHZhbGlnbj 1xrV0qUd1+JXJixVW4dKV 4fF3xLlEeZdX1 WDgrR424AqMpiALbVbwiy 9tem9hirXa7FyFfOOJtvv GmjCxmPXA5b9NiPf55P4K evYgsj8MrAwk2 rs67aQQuw3M4dXL1Z4CdZ UBhcailoALacOwhCX7rSL HposimURWexI6lZBPqW3n 9SjMpDmU1ALyk M5BokaO7HNQkoJSxMZWpg NSRdQ1nqkpix5yibpfsXy BkGEHuTEv8SJt5LBXciDv pDiWoRCC3QyY0 QDK8lAOpxC4kzMnawtjjy G9wOyc+XOd0j1xybDSeGJ 8wsTM2BO62KR39wWDoj2N 3sFS4V6DpCULd hkayajnkpQG5ASBwGPEyn B60Od3kgGkrJm9rKYOkQS V1KGMbaRVfB9VqjU0sFrV gIEOaKCFhZ0Bu mAWvNCqkS415IAhoIkG7S GBlkiCaO7FfEFEdlQmlJq P6l3A5Ih7JUW26PV49EM1 7yVWgv8E0eYG8 T1NuRRCtmayfrrylgZI3H AXbXWQzhV20Sj4pxHukCu 9dAQHvXFB5TMCkcSUyX8T tpZ6oYmQzISKr VBQvY9EmjTQdRVfbB746T QtuCcY9TAJsfiWtM6KwNH LdqIymIzJ8v9D6Tj8DOu7 5AZ08CH59hQYk p8R3wDF1X7PdLUKetcykk fridLA4YWGoXOUtjM03Ve 5lyYtkKs9qLLKjEMZ6ACI jjKMuX9JurC7s TiIyHQOgXHHyT0SssQVsC HmxG359LTxtDoH4CRXibz XdX9MfFFTaoVxfGzB9x1J 2An8TSGxyued6 A7KyYyneyZD+BP76IDAzY W52gCUptQFtx3nokCa5Le IwUHMkYWI4eTsxCOscc6R bYDElL31haSEl c2U (more content not included)... [facility] Consent Formson 03-12-2022 Consent Forms [id number]#1 [facility] 03-12-2022 Outside Records [id number]#1. [facility] Provider Orderson 03-12-2022 Provider Orders [id number]#1. [facility] Telemetry Stripson Telemetry Strips [id number]#1 [facility]est[facility] Noteon 03-11-2022 Anesthesia Note Patient: LASHAWN MONTENEGRO MRN: Age: 66 years Sex: MALE : 1955 Associated Diagnoses: None Author: Jefe Mccarthy MD Postoperative Information Anesthetic utilized: General. Assessment Anesthetic outcome No anesthetic complications noted. Plan Transfer/ Discharge: Patient can be discharged from PACU when criteria met. Condition good. [Electronically Signed on: 03/11/2022 10:53 EST] Jefe Mccarthy MD [Verified on: 03/11/2022 10:53 EST] Jefe Mccarthy MD [facility] Anesthesia Note Patient: LASHAWN MONTENEGRO MRN: Age: 66 years Sex: MALE : 1955 Associated Diagnoses: None Author: Jefe Mccarthy MD Preoperative Information Anesthesia history: Family history. Patient history: No prior anesthesia problems. Review of Systems Constitutional: Negative. Cardiovascular: No Chest Pain. No SOB. Health Status Allergies: Allergic Reactions (All) No known allergies Current medications: Home Medications (6) Active aspirin 81 mg oral delayed release tablet 81 mg = 1 tab(s), PO, Daily Crestor 10 mg oral tablet 10 mg = 1 tab(s), PO, Daily folic acid 1 mg oral tablet 1 mg = 1 tab(s), PO, Daily levothyroxine 88 mcg (0.088 mg) oral tablet 88 mcg = 1 tab(s), PO, Daily tamsulosin 0.4 mg oral capsule 0.4 mg = 1 cap(s), PO, Daily Vitamin B12 1000 mcg oral tablet 1,000 mcg = 1 tab(s), PO, Daily Problem list (past medical history): All Problems AA (aortic aneurysm) / SNOMED CT 486372961 / Confirmed Bladder cancer / SNOMED CT 9638841985 / Confirmed Current every day smoker / SNOMED CT 5975659043 / Confirmed Resolved: Graves disease / SNOMED CT 924603763 Histories Family History: CA - Breast cancer Mother Heart attack Father Procedure history: TURBT - Transurethral resection of bladder tumor ([id number]) on 10/22/2021 at 66 Years. Thyroid (508507982). Comments: 10/04/2021 10:13 [facility] - Davon Miller RN radioactive tx for graves disease TURBT - Transurethral resection of bladder tumor ([id number]). Social History Electronic Cigarette/Vaping Assessment Electronic Cigarette Use: Never. Alcohol Assessment Use: Current. Liquor, 1-2 times per week Use: Current. Beer, Liquor, Daily Tobacco Assessment Former tobacco user Tobacco Use:. Started age 16 Years. Stopped age 66 Years. Never Smokeless Tobacco Use:. Current everyday tobacco user Tobacco Use:. Substance Abuse Assessment Substance use: Never. 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 Home/Environment Assessment Lives with Self. Nutrition/Health Assessment Regular, Caffeine intake amount: Coffee 8oz/daily. . 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 Physical Examination Pain assessment: Self-reports no pain. General: Alert and oriented. Airway: Mallampati classification: I (soft palate, fauces, uvula, pillars visible). Temporomandibular joint mobility: Good. Mouth: Teeth ( Serveral missing but denies loose: states all loose/at risk teeth were pulled by dentist. ). Respiratory: Lungs are clear to auscultation. Cardiovascular: Regular rhythm. Neurologic: Alert, Oriented. Review / Management Laboratory Results Plan [place] [employer]hesiologists#( A) physical status classification: Class III. Anesthetic Preoperative Plan Anesthesia: General. . Anesthetic plan, risks, benefits, and alternatives discussed with the patient and/or family. Patient verbalized understanding. Informed consent was given. Anesthetic technique: General anesthesia, Plan for GA via LMA; ETT if necessary. Regarding patient's AAA: patient and family state it is being followed by a front office specialist at [facility] and his most recent scan was under 4cm. All R/B D/W patient and family regarding today's procedure. Informed consent. . [Electronically Signed on: 03/11/2022 10:05 EST] FullJefe saxena MD [Verified on: 03/11/2022 10:05 EST] FullJefe saxena MD [facility] Inpatient Patient Summaryon 03-11-2022 [place] [address] Patient Discharge Instructions Name: LASHAWN MONTENEGRO [place] : 1955 Patient Address: [address] [address] Primary Care Provider: Name: MARY SANTOS MD After you are discharged if you find you have any questions, please, call [phone] ext [phone] to speak to a nurse. Discharge Diagnosis: 1:Incomplete bladder emptying Prescription Information: If you have been given a prescription for narcotics, seek immediate medical attention if you have any difficulty breathing or any sudden status changes such as confusion and sleepiness. If you or anyone you know is experiencing suicidal thoughts, mental health, alcohol and/or drug addiction problems; contact the [facility] 01/09 Crisis Hotline -Text 6GHLW pu 196867. If you received any narcotics, sedation, or any other medication that causes drowsiness for the next 24 hours, unless otherwise directed: ? Do not drive a car. ? Do not operate machinery such as power tools, lawn mowers, drills, sewing machines, or stoves ? Avoid alcoholic beverages and drugs for allergies, nerves, or sleep ? Do not make important personal or business decisions or sign any legal documents [facility] would like to thank you for allowing us to assist you with your healthcare needs. The following includes patient education materials and information regarding your injury/illness. LASHAWN MONTENEGRO has been given the following list of follow-up instructions, prescriptions, and patient education materials: Follow-up Instructions With: Address: When: Huey Alvarado MD Medications During the course of your visit, your medication list was updated with the most current information. The details of those changes are reflected below: New Medications [facility], [address] [place], [place] [id number], [phone] cephalexin (!-Keflex 500 mg oral capsule) 1 cap(s) Oral Every 8 hours. Refills: 0. traMADol (Ultram 50 mg oral tablet) 1 tab(s) Oral every 6 hours as needed as needed for pain. Refills: 0. Medications to Continue That Have Not Changed Other Medications aspirin (aspirin 81 mg oral delayed release tablet) 1 tab(s) Oral every day. cyanocobalamin (Vitamin B12 1000 mcg oral tablet) 1 tab(s) Oral every day. folic acid (folic acid 1 mg oral tablet) 1 tab(s) Oral every day. levothyroxine (levothyroxine 88 mcg (0.088 mg) oral tablet) 1 tab(s) Oral every day. rosuvastatin (Crestor 10 mg oral tablet) 1 tab(s) Oral every day. tamsulosin (tamsulosin 0.4 mg oral capsule) 1 cap(s) Oral every day. It is important to always keep an active list of medications available so that you can share with other providers and manage your medications appropriately. As an additional courtesy, we are also providing you with your final active medications list that you can keep with you. aspirin (aspirin 81 mg oral delayed release tablet) 1 tab(s) Oral every day. cephalexin (!-Keflex 500 mg oral capsule) 1 cap(s) Oral Every 8 hours. Refills: 0. cyanocobalamin (Vitamin B12 1000 mcg oral tablet) 1 tab(s) Oral every day. folic acid (folic acid 1 mg oral tablet) 1 tab(s) Oral every day. levothyroxine (levothyroxine 88 mcg (0.088 mg) oral tablet) 1 tab(s) Oral every day. rosuvastatin (Crestor 10 mg oral tablet) 1 tab(s) Oral every day. tamsulosin (tamsulosin 0.4 mg oral capsule) 1 cap(s) Oral every day. traMADol (Ultram 50 mg oral tablet) 1 tab(s) Oral every 6 hours as needed as needed for pain. Refills: 0. Take only the medications listed above. Contact your doctor prior to taking any medications not on this list. Diet & Activity Patient Activity Level: Patient Diet: Patient Activity Restrictions: Comment: Patient education materials, if any, will display below Viruses or Bacteria What?s got you sick? Antibiotics only treat bacterial infections. Viral illnesses cannot be treated with antibiotics. When an antibiotic is not prescribed, ask your healthcare professional for tips on how to relieve symptoms and feel better. Usual Cause Illness Viruses Bacteria Antibiotic Needed Cold/Runny Nose NO Bronchitis/Chest Cold (in otherwise healthy children and adults) NO Whooping Cough Yes Flu NO Strep Throat Yes Sore Throat (except strep) NO Fluid in the middle ear (otitis media with effusion) NO Urinary Tract Infection Yes Antibiotics Aren?t Always the Answer www.cdc.gov/getsmart GET SMART Know When Antibiotics Work [place] Department of Health and Human Services Centers for Disease Control and Prevention October 2013 [facility] MAGR Intraoperative Recordon 03-11-2022 MAGR Intraoperative Record MAGR Intra-Op Record Summary Primary Physician: Huey Alvarado MD Finalized Date/Time: 03/11/22 12:24:13 Pt. Name: LASHAWN MONTENEGRO/Sex: 1955 MALE Med Rec #: [id number] Physician: Huey Alvarado MD Financial #: [id number] Pt. Type: D Room/Bed: / Admit/Disch: 03/11/22 07:37:13 - Institution: Case Times MAGR Entry 1 Patient In Room Time 03/11/22 09:42:00 Out Room Time 03/11/22 10:41:00 Anesthesia Start Time 03/11/22 09:45:00 Stop Time 03/11/22 10:42:00 Surgery Start Time 03/11/22 10:07:00 Stop Time 03/11/22 10:32:00 Last Modified By: Aliza Florentino RN 03/11/22 10:41:16 Case Attendance MAGR Entry 1 Entry 2 Entry 3 Case Attendee Huey Alvarado MD, Aliza Nunez MD, RN Role Performed Surgeon - Primary Anesthesiologist of Fan Engine Engineer Record Time In 03/11/22 10:03:00 03/11/22 09:42:00 03/11/22 09:42:00 Time Out 03/11/22 10:32:00 03/11/22 10:41:00 03/11/22 10:41:00 Procedure Cystoscopy PVP Cystoscopy PVP Cystoscopy PVP Greenlight Laser Greenlight Laser Greenlight Laser Prostate Prostate Prostate Last Modified By: Aliza Florentino RN, Barbara RN Long, Barbara RN 03/11/22 10:41:18 03/11/22 10:41:18 03/11/22 10:41:18 Entry 4 Entry 5 Case Attendee Cierra Pedroza RUBBER TUBING SPLICER Felton RUBBER TUBING SPLICER, Karolina RUBBER TUBING SPLICER CSFA Role Performed Scrub Personnel Casino Floor Runner Time In 03/11/22 09:42:00 03/11/22 09:42:00 Time Out 03/11/22 10:41:00 03/11/22 10:41:00 Procedure Cystoscopy PVP Cystoscopy PVP Greenlight Laser Greenlight Laser Prostate Prostate Last Modified By: Aliza Florentino RN, Barbara RN 03/11/22 10:41:18 03/11/22 10:41:18 General Comments: Jefe leahy rep Surgical Procedures MAGR Pre-Care Text: A.20 Verifies operative procedure, surgical site, and laterality Im.150 Develops individualized plan of care Entry 1 Procedure Cystoscopy PVP Primary Procedure Yes Greenlight Laser Prostate Primary Surgeon Huey Alvarado MD Surgeon Comment CYSTO GREENLIGHT Start 03/11/22 10:07:00 Stop 03/11/22 10:32:00 Anesthesia Type General Surgical Service Urology Wound Class Clean-Contaminated Technique Details Closure Technique N/A Entire procedure No was performed via laparoscope or robotic assistance Last Modified By: Aliza Florentino RN 03/11/22 10:36:49 Post-Care Text: O.730 The patient's care is consistent with the individualized perioperative plan of care General Case Data MAGR Pre-Care Text: A.350.1 Classifies surgical wound Entry 1 Case Information OR MAGR OR 05 Case Level Level 4 Wound Class Clean-Contaminated Specialty Urology ASA Class 3 Diagnosis Preop Diagnosis BPH Postop Same As Preop Yes Postop Diagnosis BPH Blunt or No Is the procedure No penetrating injury considered occured prior to Emergent/Urgent? the start of the procedure: Last Modified By: Aliza Florentino RN 03/11/22 10:35:35 Post-Care Text: O.760 Patient receives consistent and comparable care regardless of the setting Time Out MAGR Entry 1 Time out date/time 03/11/22 10:04:00 All team members No have introduced themselves by name and role Surgeon, Yes Surgeon reviews Yes anesthesia, nurse critical or confirm patient, unexpected steps, site, procedure operative duration, anticipated blood loss Anesthesia team Yes Nursing team Yes reviews any reviews sterility patient-specific (including concerns indicator results) and equipment issues/concerns Antibiotic Antibiotic Yes Administration Time 09:41 prophylaxis given within the last 60 minutes Last Modified By: Aliza Florentino RN 03/11/22 10:08:35 Patient Positioning MAGR Pre-Care Text: A.280 Identifies baseline musculoskeletal status Im.40 Positions the patient Im.80 Applies safety devices Entry 1 Procedure Cystoscopy PVP Body Position Low Lithotomy Greenlight Laser Prostate Left Arm Position Extended on padded arm Right Arm Position Extended on padded arm board board Left Leg Position Secured in Stirrup Right Leg Position Secured in Stirrup Press Points Checked Yes Positioning Device Safety Strap, Stirrups Outcome Met (O.80) Yes Last Modified By: Aliza Florentino RN 03/11/22 10:01:04 Post-Care Text: E.290 Evaluates musculoskeletal status O.80 Patient is free from signs and symptoms of injury related to positioning Skin Prep MAGR Pre-Care Text: A.30 Verifies allergies Im.270 Performs skin preparation Im.270.1 Implements protective measures to prevent skin and tissue injury due to chemical sources Entry 1 Skin Prep Syntegrity Prep Agents (Im.270) 4% Chlorhexidine Prep By Aliza Florentino RN Gluconate Prep Area (Im.270) Perineum Skin Prep Agent Dry Yes Without Pooling Hair Removal Syntegrity Hair Removal Methods No hair removal performed Outcome Met (O.100) Yes Last Modified By: Aliza Florentino RN 03/11/22 10:01:18 Post-Care Text: E.10 Evaluates for signs and symptoms of physical injury to skin and tissue O. (more content not included)... [facility] MAGR PACU Recordon MAGR PACU Record MAGR PACU Record Summary Primary Physician: Huey Alvarado MD Finalized Date/Time: 03/11/22 11:13:25 Pt. Name: LASHAWN MONETNEGRO/Sex: 1955 MALE Med Rec #: [id number] Physician: Huey Alvarado MD Financial #: [id number] Pt. Type: D Room/Bed: / Admit/Disch: 03/11/22 07:37:13 - Institution: PACU Case Times MAGR Entry 1 In PACU I 03/11/22 10:42:00 Discharge from PACU 03/11/22 11:10:00 I Last Modified By: Davon Miller RN 03/11/22 11:13:22 Finalized By: Davon Milelr RN Document Signatures Signed By: Davon Miller RN 03/11[facility]22 [facility]R Postoperative Record MAGR Phase II Record Summary Primary Physician: Huey Alvarado MD Finalized Date/Time: 03/11/22 12:31:47 Pt. Name: LASHAWN MONTENEGRO/Sex: 1955 MALE Med Rec #: [id number] Physician: Huey Alvarado MD Financial #: [id number] Pt. Type: D Room/Bed: / Admit/Disch: 03/11/22 07:37:13 - Institution: Phase II Case Times MAGR Pre-Care Text: Patient is free from s/s of injury. Patient remains free from compromised physical state related to surgery or anesthesia. Patient comfort maintained. Patient/family verbalize understanding of discharge instructions. Entry 1 In PACU II 03/11/22 11:10:00 Discharge from PACU 03/11/22 12:27:00 II Last Modified By: Jamee Willingham RN 03/11/22 12:31:45 Post-Care Text: The patient remains free from s/s of injury. Patient's vital signs stable, circulation maintained, return to preop mental and physical status, opsite/dressing intact, minimal or absent nausea and vomiting, tolerates po intake. Patient verbalizes adequate pain control. Patient/family express understanding of discharge instructions. Finalized By: Jamee Willingham RN Document Signatures Signed By: Jamee Willingham RN 03/11/22 12:31 [facility] [place] [facility] Pre-Op Record Summary Primary Physician: Huey Alvarado MD Finalized Date/Time: 03/11/22 10:43:36 Pt. Name: LASHAWN MONTENEGRO./Sex: 1955 MALE Med Rec #: [id number] Physician: Huey Alvarado MD Financial #: [id number] Pt. Type: D Room/Bed: / Admit/Disch: 03/11/22 07:37:13 - Institution: Pre-Op Case Times [facility] Pre-Care Text: Patient will be optimally prepared for surgery. Patient is free from s/s of injury. Provide information to patient/family related to plan of care. Verify patient allergies. Confirm identity and verify consent before the operative or invasive procedure. Entry 1 Patient Arrival Time 03/11/22 07:40:00 Preop Departure 03/11/22 09:42:00 Last Modified By: Davon Miller RN 03/11/22 10:43:33 Post-Care Text: Patient is prepared mentally and physically and is ready for surgery. The patient remains free from s/s of injury. Patient/family express understanding of plan of care and participate in decisions affecting his or her perioperrative plan of care. Allergies documented appropriately. Patient identifiers and consent correct. General Comments: Pt to [facility] ambualtory. Pt denies any recent cold/flu covid symtpoms, SOB, sleep apnea, diabetes, CP, or pacemaker/drfibrillat or. Pt informed of restrictions for 24 hours due to sedation- pt understood. Finalized By: Davon Miller RN Document Signatures Signed By: Davon Miller RN 03/11/22 10:43 [facility] Patient Handouton 03-11-2022 Patient Handout [facility] Progress Note - Nurseon 02-11 Progress Note - Nurse Talked to spouse. Pt needs to arrive @ 0800a. NPO and pt must have a emergency vehicle driver to go home. Spouse aware of medications for pt to take pre-op [Electronically Signed on: 03/10/2022 09:55 EST] Evelyn Green RN [Verified on: 03/10/2022 09:55 EST] Evelyn Green RN [facility] Progress Note - Nurseon 02-09 Progress Note - Nurse PAT reviewed by Dr. Jeffries. No new orders received. [Electronically Signed on: 02/27/2022 11:12 EST] Mine Suarez RN [Verified on: 02/27/2022 11:12 EST] Mine Suarez RN [facility] C Urineon 02-08-2022 C Urine >100,000 cfu/ml Klebsiella oxytoca ORGANISM Kleoxy ---- SUSCEPTIBILITY --- ORGANISM ID: 1 ANTIBIOTIC INTERPRETATION MEGHAN STATUS ORGANISM KleoxyKleoxy Amik S <=16 Verified Amox/Cla S <=8/4 Verified Amp R >16 Verified Amp/Sul S <=8/4 Verified Azt S <=4 Verified Cefaz N/R Verified Cefep S <=8 Verified Cefo S <=2 Verified Ceftaz S <=1 Verified Ceftri S <=1 Verified Cefur S <=4 Verified Ceph S <=8 Verified Cipro S <=1 Verified Ertap S <=0.5 Verified Gent S <=2 Verified Imi S <=1 Verified Levo S <=2 Verified Nitro I 64 Verified Pip/Ramiro S <=16 Verified Tetra S <=4 Verified Tobra S <=4 Verified Tri/Sulf S <=2/38 Verified Normal [facility] Comment on above: Performed By: #### [id number] ####[facility] (DEFAULT)[address] [place] [address] BNPon 02-07-2022 Natriuretic peptide B (Bld) [Mass/Vol] 86.0 pg/mL Normal <=900.0 [facility] Comment on above: Performed By: #### ECHO RUBIO #### [facility] [address] [place] [address] Dr. Renea Rawls CBC AUTO DIFFon 02-07-2022 BASO # 0.1 103/ul Normal 0.0-0.1 [facility] Comment on above: Performed By: #### C BC #### [facility] [address] [place] [address] Dr. Renea Rawls Basophils/100 WBC (Bld) 0.5 % Normal 0.2-2.0 [facility] Comment on above: Performed By: #### C BC #### [facility] [address] [place] [address] Dr. Renea Rawls EO # 0.2 103/ul Normal 0.0-0.7 [facility] Comment on above: Performed By: #### C BC #### [facility] [address] [place] [address] Dr. Renea Rawls Eosinophils/100 WBC (Bld) 1.3 % Normal 0.9-7.0 [facility] Comment on above: Performed By: #### C BC #### [facility] [address] [address] [address] Renea Rawls Erythrocyte distribution width (RBC) [Ratio] 13.7 % Normal 11.0-15.0 [facility] Comment on above: Performed By: #### C BC #### [facility] [address] [place] [address] Dr. Renea Rawls Hematocrit (Bld) [Volume fraction] 40.4 % Critically low 42.0-54.0 [facility] Comment on above: Performed By: #### C BC #### [facility] [address] [place] [address] Dr. Renea Rawls Hemoglobin (Bld) [Mass/Vol] 14.5 g/dL Normal 14.0-18.0 [facility] Comment on above: Performed By: #### C BC #### [facility] [address] [place] [address] Dr. Renea Rawls IG # 0.03 10e3/ul Normal 0.00-0.03 [facility] Comment on above: Performed By: #### C BC #### [facility] [address] [place] [address] Dr. Renea Rawls IG % 0.3 % Normal 0.0-0.5 [facility] Comment on above: Performed By: #### C BC #### [facility] [address] [place] [address] Dr. Renea Rawls LYMPH # 3.1 103/ul Normal 1.2-3.8 [facility] Comment on above: Performed By: #### C BC #### [facility] [address] [place] [address] Dr. Renea Rawls Lymphocytes/100 WBC (Bld) 27.9 % Normal 20.5-60.0 [facility] Comment on above: Performed By: #### C BC #### [facility] [address] [place] [address] Dr. Renea Rawls MANUAL DIFF REQ NO Normal [facility] Comment on above: Performed By: #### C BC #### [facility] [address] [address] [address] Renea Rawls MCH (RBC) [Entitic mass] 32.9 pg Normal 25.9-34.0 [facility] Comment on above: Performed By: #### C BC #### [facility] [address] [place] [address] Dr. Renea Rawls MCHC (RBC) [Mass/Vol] 35.9 g/dL Critically high 29.9-35.2 [facility] Comment on above: Performed By: #### C BC #### [facility] [address] [address] [address] Renea Rawls MCV (RBC) [Entitic vol] 91.6 fL Normal 80.0-94.0 [facility] Comment on above: Performed By: #### C BC #### [facility] [address] [place] [address] Dr. Renea Rawls MONO # 0.7 103/ul Normal 0.3-0.8 [facility] Comment on above: Performed By: #### C BC #### [facility] [address] [place] [address] Dr. Renea Rawls Monocytes/100 WBC (Bld) 6.6 % Normal 1.7-12.0 [facility] Comment on above: Performed By: #### C BC #### [facility] [address] [place] [address] Dr. Renea Rawls NEUT # 7.0 103/ul Critically high 1.4-6.5 [facility] Comment on above: Performed By: #### C BC #### [facility] [address] [place] [address] Dr. Renea Rawls Neutrophils/100 WBC (Bld) 63.4 % Normal 43.0-75.0 [facility] Comment on above: Performed By: #### C BC #### [facility] [address] [place] [address] Dr. Renea Rawls Platelet mean volume (Bld) [Entitic vol] 9.7 fL Normal 9.5-13.5 [facility] Comment on above: Performed By: #### C BC #### [facility] [address] [place], [place] [address] Dr. Renea Rawls PLT 288 103/ul Normal 150-450 [facility] Comment on above: Performed By: #### C BC #### [facility] [address] [place], [place] [address] Dr. Renea Rawls RBC 4.41 106/ul Critically low 4.70-6.10 [facility] Comment on above: Performed By: #### C BC #### [facility] [address] [place], [place] [address] Dr. Renea Rawls WBC 11.1 103/ul Critically high 4.0-11.0 [facility] Comment on above: Performed By: #### C BC #### [facility] [address] [place], [place] [address] Dr. Renea Rawls CTA CHEST WO W CONon 022 CTA CHEST WO W CON EXAMINATION: CT CHES T W CONTRAST HISTORY: Shortness of breath COMPARISON: No relevant comparison available. TECHNIQUE: Multi-planar CT images were created with IV contrast. Axial, Coronal, and Sagittal images. Dose reduction techniques were achieved by using automated exposure control and/or adjustment of mA and/or kV according to patient size and/or use of iterative reconstruction technique. FINDINGS: VASCULATURE: No pulmonary embolism or abnormal opacity. LUNGS: Mild centrilobular and paraseptal emphysema with an upper lobe predominance. Linear opacity in the right lower lobe, atelectasis or scar is favored. Minimal dependent atelectasis. PLEURA: No mass, effusion, or pneumothorax. TINA: Borderline enlarged right hilar lymph nodes MEDIASTINUM: No mass or adenopathy. CARDIAC: No enlargement or pericardial effusion. Moderate to heavy coronary atherosclerosis. AORTA: No aortic aneurysm. Moderate diffuse atherosclerosis. Flow significant atherosclerosis origin of the left subclavian artery estimated to be 60% CHEST WALL: No mass or axillary adenopathy. BONES: No bone lesion or fracture. LIMITED ABDOMEN: No suspicious findings. Limited images of the upper abdomen. OTHER: Negative. IMPRESSION: No central pulmonary thromboembolic disease Mild centrilobular and paraseptal emphysema Electronically authenticated by: STEFFEN CHAUDHARI Date: 2022-02-07 11:10 Normal [facility] D-DIMERon 02-07-2022 D-DIMER 0.99 mg/L FEU Critically high <=0.59 [facility] Comment on above: Performed By: #### D DIM #### [facility] [address] [place] [address] Dr. Renea Rawls D-DIMER COMMENTS SEE BELOW Normal [facility] Comment on above: Result Comment: Incr eases in D-Dimer concentration observed with thromboembolic events can be variable due to localization, size, and age of the thrombus. Therefore, a thromboembolic event cannot be diagnosed with certainty on the basis of the reference range. D-Dimers may also be elevated for a variety of disorders including: advanced age, , coronary disease, cancer, liver disease, infection, inflammation, hematoma, DIC, trauma, post-surgery, diabetes, thrombolytic or anticoagulant therapy, stress, and generalized hospitalization. Performed By: #### D DIM #### [facility] [address] [place] [address] Dr. Renea Rawls PROF CHEM 8 (BAS METB)on Anion gap [Moles/Vol] 15.1 mmol/L Normal [facility] Comment on above: Performed By: #### ECHO RUBIO #### [facility] [address] [place] [address] Dr. Renea Rawls Calcium [Mass/Vol] 9.4 mg/dL Normal 8.5-10.1 [facility] Comment on above: Performed By: #### ECHO RUBIO #### [facility] [address] [place] [address] Dr. Renea Rawls Chloride [Moles/Vol] 101 mmol/L Normal 98-107 [facility] Comment on above: Performed By: #### ECHO RUBIO #### [facility] [address] [place] [address] Dr. Renea Rawls CO2 [Moles/Vol] 23.8 mmol/L Normal 21.0-32.0 [facility] Comment on above: Performed By: #### ECHO RUBIO #### [facility] [address] [place] [address] Dr. Renea Rawls Creatinine [Mass/Vol] 1.18 mg/dL Normal 0.70-1.30 [facility] Comment on above: Performed By: #### ECHO RUBIO #### [facility] [address] [place] [address] Dr. Renea Rawls EGFR-AF SRI LANKAN >60 Normal >=60 [facility] Comment on above: Performed By: #### ECHO RUBIO #### [facility] [address] [address] [address] Renea Rawls EGFR-NON AF SRI LANKAN >60 Normal >=60 [facility] Comment on above: Performed By: #### ECHO RUBIO #### [facility] [address] [place] [address] Dr. Renea Rawls Glucose [Mass/Vol] 117 mg/dL Critically high 74-106 T [facility] Comment on above: Performed By: #### ECHO RUBIO #### [facility] [address] [place] [address] Dr. Renea Rawls Potassium [Moles/Vol] 4.9 mmol/L Normal 3.5-5.1 [facility] Comment on above: Performed By: #### ECHO RUBIO #### [facility] [address] [place] [address] Dr. Renea Rawls Sodium [Moles/Vol] 135 mmol/L Critically low 136-145 Th [facility] Comment on above: Performed By: #### ECHO RUBIO #### [facility] [address] [place] [address] Dr. Renea Rawls Urea nitrogen [Mass/Vol] 20.0 mg/dL Critically high 7.0-18.0 [facility] Comment on above: Performed By: #### ECHO RUBIO #### [facility] [address] [place] [address] Dr. Renea Rawls Urea nitrogen/Creatinine [Mass ratio] 16.9 mg/mg Normal [facility] Comment on above: Performed By: #### ECHO RUBIO #### [facility] [address] [place] [address] [address] [address] Renea Rawls Provider Orderson 02-07-2022 Provider Orders [id number] Normal [facility] TROPONIN, HIGH SENSITIVITYon 02-07-2022 HSTROP 9.9 pg/mL Normal 4.0-76.1 [facility] Comment on above: Result Comment: CUT- OFF POINTS HAVE BEEN ESTABLISHED BASED ON THE FOURTH UNIVERSAL DEFINITIONS OF MYOCARDIAL INFARCTION. THE UPPER REFERENCE LIMIT (URL) OF TROPONIN, DEFINED THE 99TH PERCENTILE OF cTnI DISTRIBUTION IN A REFERENCE POPULATION, HAS BEEN CONFIRMED THE DECISION THRESHOLD FOR [place] DIAGNOSIS. Performed By: #### E YUNG, ECHO #### [facility] [address] [place] [address] [address] [address] Renea Rawls XR CHEST 1 Von 02-07-2022 XR CHEST 1 V EXAMINATION: XR CHES T 1 V HISTORY: SHORTNESS OF BREATH COMPARISON: No relevant comparison available. TECHNIQUE: AP portable FINDINGS: LUNGS: No significant pulmonary parenchymal abnormalities. VASCULATURE: No increased pulmonary vasculature. PLEURA: No pneumothorax, effusion, or pleural thickening. CARDIAC: No cardiomegaly or cardiac silhouette abnormality. MEDIASTINUM: No visible mass or adenopathy. BONES: No fracture or visible bone lesion. OTHER: Negative. IMPRESSION: No acute disease. Electronically authenticated by: STEFFEN CHAUDHARI Date: 2022-02-07 08:49 Normal [facility] Documentationon 12-19-2021 Documentation [id number] Lisandro Montenegro 1955 Date Provider Department Center 12/19/2021 CAROLE ALFARO [facility]. No family history on file [facility] US ABD AORTA DIAGNOSTICon US ABD AORTA DIAGNOSTIC EXAMINATION: US ABD AORTA DIAGNOSTIC HISTORY: Abdominal aortic aneurysm without rupture COMPARISON: 01/01/2021 TECHNIQUE: Ultrasound examination of the retroperitoneal area was performed, with a focused evaluation of the abdominal aorta. FINDINGS: Proximal aorta: 2.6 x 2.5 cm Mid aorta: 4.0 x 3.4 cm Distal aorta: 3.7 x 3.5 cm Right common iliac artery: 1.8 x 2.1 cm Left common iliac artery: 2.2 x 1.7 cm Moderate to large amount of soft and calcific atherosclerotic plaque IMPRESSION: Fusiform aneurysm of the distal abdominal aorta measuring 3.7 x 3.5 cm Electronically authenticated by: STEFFEN CHAUDHARI Date: 2021-12-17 19:12 Normal [facility] ER URINE PROFILEon 2 Bilirubin Ql (U) Negative Normal NEGATIVE [facility] Comment on above: Performed By: #### Elsa BARRAGAN UMICRO #### [facility] [address] [place] [address] Dr. Renea Rawls Clarity (U) CLEAR Normal CLEAR [facility] Comment on above: Performed By: #### Elsa BARRAGAN UMICRO #### [facility] [address] [place] [address] Dr. Renea Rawls Color (U) YELLOW Normal YELLOW [facility] Comment on above: Performed By: #### Elsa BARRAGAN UMICRO #### [facility] [address] [place] [address] Dr. Renea Rawls ERUAHPennie A micrscopic examination will be performed if indicated. Normal [facility] Comment on above: Performed By: #### Elsa BARRAGAN UMICRO #### [facility] [address] [place] [address] Dr. Renea Rawls Glucose Ql (U) Negative Normal NEGATIVE [facility] Comment on above: Performed By: #### KEV RUBIOICRO #### [facility] [address] [place] [address] Dr. Renea aRwls Hemoglobin Ql (U) LARGE Abnormal NEGATIVE [facility] Comment on above: Performed By: #### Elsa BARRAGAN UMICRO #### [facility] [address] [place] [address] Dr. Renea Rawls Ketones Ql (U) Negative Normal NEGATIVE [facility] Comment on above: Performed By: #### Elsa BARRAGAN UMICRO #### [facility] [address] [place] [address] Dr. Renea Rawls LEUKOCYTES Negative Normal NEGATIVE [facility] Comment on above: Performed By: #### KEV RUBIOICRO #### [facility] [address] [place] [address] Dr. Renea Rawls Nitrite Ql (U) Negative Normal NEGATIVE [facility] Comment on above: Performed By: #### Elsa BARRAGAN UMICRO #### [facility] [address] [place] [address] Dr. Renea Rawls pH (U) 6.0 [pH] Normal 5-9 [facility] Comment on above: Performed By: #### Elsa BARRAGAN UMICRO #### [facility] [address] [place] [address] Dr. Renea Rawls SPEC GRAVITY 1.025 Normal 1.005-<=1.025 [facility] Comment on above: Performed By: #### Elsa BARRAGAN UMICRO #### [facility] [address] [place] [address] Dr. Renea Rawls UA PROTEIN TRACE Normal NEGATIVE/ TRACE [facility] Comment on above: Performed By: #### KEV RUBIOICRO #### [facility] [address] [place] [address] Dr. Renea Rawls UR MICRO IND INDICATED Normal [facility] Comment on above: Performed By: #### GUMARO RUBIORO #### [facility] [address] [place] [address] Dr. Renea Rawls Urobilinogen Qn (U) 0.2 {Chase'U}/dL Normal 0.2 - 1. 0 [facility] Comment on above: Performed By: #### Elsa BARRAGAN UMICRO #### [facility] [address] [place] [address] Dr. Renea Rawls URINE MICROSCOPIC ONLYon BACTERIA NONE SEEN Normal NONE SEEN [facility] Comment on above: Performed By: #### GUMARO RUBIORO #### [facility] [address] [place] [address] Dr. Renea Rawls Bacteria identified Cx Nom (U) NOT INDICATED Normal [facility] Comment on above: Performed By: #### GUMARO RUBIORO #### [facility] [address] [place] [address] Dr. Renea Rawls CAST NONE SEEN Normal NONE SEEN [facility] Comment on above: Performed By: #### GUMARO RUBIORO #### [facility] [address] [place] [address] Dr. Renea Rawls Crystals LM Nom (Urine sed) NONE SEEN Normal NONE SEEN [facility] Comment on above: Performed By: #### GUMARO RUBIORO #### [facility] [address] [place] [address] Dr. Renea Rawls Epithelial cells LM Ql (Urine sed) NONE SEEN Normal NONE SEEN /RARE [facility] Comment on above: Performed By: #### GUMARO RUBIORO #### [facility] [address] [place] [address] Dr. Renea Rawsl MUCOUS NONE SEEN Normal NONE SEEN [facility] Comment on above: Performed By: #### GUMARO RUBIORO #### [facility] [address] [place] [address] Dr. Renea Rawls RBC 10-20 Abnormal 0-2 [facility] Comment on above: Performed By: #### GUMARO RUBIORO #### [facility] [address] [place] [address] Dr. Renea Rawls WBC 0-2 Abnormal NONE SEEN [facility] Comment on above: Performed By: #### GUMARO RUBIORO #### [facility] [address] [place] [address] Dr. Renea Rawls TSH w/ Reflex to Free T4on 0 - TSH 1.620 uIU/mL Normal 0.400-4.500 [facility] Comment on above: Performed By: #### T SH reflex FT4 #### [facility] [address] [place], [place] [id number] Coding Summary.on 07-27-2020 Coding Summary. [id number] G h0bWw+PGhlYWQ+DX3ZUTR vK99cvCJwfC2UQ3gPEF8L JRECOWIUBO7NJR5rzPF9L VpzF4LtjbTb AyxlcNOqXA79XLi5NWG8h KtfUAwvhB5rkSVfS0u2Qw AnTJ97rG28YDvxDCQiKwG 3LjZpbjsgbWFy A9dlKnTmwWXxFod+PHRhY mxlIHdpZHRoPScxMDAlJy FsnUflMR9jWk3oDRDwEMG vbGxhcHNlOiBj s9wtBOEaCJwwOI0qmFwcK 2DtbII3EPQpv1u3Gu80hU I+TUFoIHH4rKlxJDhkq26 8AjLig8znDZL5 xCBtKXzdNOZ0N73sy0R7X NEmKQRbTLM7ePL1rR9maE ckvctrV3NmiNQyKmG9YVC 3uFCvrW0isIpj fmwhbJ6aMvs+W67CWU7TG FOGRY4SSnb1Z3BuQctiwJ I+IB62NLThKP19cADsoOE aa9zhwFu2TlSy VBXyIZE0yKovOZpfk7CqF UEaY60yyOKfj4P2DPYnjC rhoHHvItMaoVO8nF4xQMp uywccx6kivqcv Mvlyb8xucj21rF53Y66eB YeqRFLtWVA7VXNvHLRhjZ qqhn7qgL6pTr5+IDjvp8x hr9simWx9GnFs KFAugrQcjWsuBMF2f7LmE t58G0GsgEqmc9VjWuc3it 86kJJwp3K0aJG0ZBepZSY zzF9xFAtfUjJ3 MPHeQkDhrF34hPDrPKloM u5ymRmrtToxXW2yKOQdzg lnNOLrmO9gGDTmnBHflIa eIN9iHAOvzrht b963CyPkXTZ0LBTstMYbN 2OsxH5gNkHuTKRcTEZxA1 TzoIJhTMbjY116SKoaOcG 8EGJsxoQoR1Jd GNMifBcmIbP5c2X2Rc4Hd 1IhtcjoIBF4JLtmISZ8Ga G2WyFuNhG6Q1WsKcg4MST llXfgPK8kS6Em CVDlahzleindsRM0FEItM HWfwE07oQArHSiiKz7gs6 A9g939KLExKONfqE55Lb5 udDogMTBwdCBU bL1snuzxc3sbclxmNnRrA IUrOVc6GXf0FLFulMeoHr LkFYJ1MrM6HPC5cBLeeI7 mlOcfqdeioO3q Oyc+M22vhU5vPCY2NBO8o khePIBfmuLjUO63VQ04Q5 RyPjwvdGFibGU+PGRpdiB zfRwkHM2ySoRu k4sli7EtHChwB6NpPQPjY EakCux3CURfCDI1oFP5sB 3mVDJyDZuhv6K1vYB1A6D imdAvdo3ka2nh PPUcOQumW12ciIRyf5V7T ULdcDO3CJIirZqjIpVrsD 93Oyc+IHCudCjba2YzAvq tq0cnl7iiqAd8 SvPcSSLozbEloEjhTIK8f 9OgXi12Z36zRHolVVZfNX QgYACwOCUyqUumvl2glS8 wIi8+PGNvbCB3 lEH8oB0qREXwTqK9WRkbT 164EqDizWIzXlciv6cvd1 bwsAu8NnMpDNCkouDvrWh lSSP9j7MhPu44 X68bJUfnYFIoXQCkRURyR QUqsQojbl0pqO0tQn7+PC 2jn9itdh39fB08bDO+PHR tZBK0eJjwJMyi KZWwqG7wPOepJmJ4QGWyI qHjzF31sJZhWUbqIc4rmD augFvkEZ0wWAVlityzt75 4EeSmz1kuUJWk gFCqPIegCRI4V93ay5O0Z RBoVXIsUUY4fXH1eU0jxH lnbjogbGVmdDsgdmVydGl zFKkfNRqtA500 IHRvcDsnPlBhdGllbnQgT pThCTa0O4GnNvs5ZSEffH yhEQ4kpKUnYPdtUi7dkDq jkWdrOX1kWXUi oweyi673LoGht4qnBTOos PKhYRuaNZE2C09nm8O7SL QhRWUuNTW9xIV7zA5avJh nbjogbGVmdDsg mdFrvAxmCFwvXHcwA150R HRvcDsnPkJpcnRoIERhdG O6JX98OO19eKMrb3C5eZB 5P8JfJEFhoogx owjujTE5PYGkIXDvqW51O c1lyKzfYk0vQMAaPDR4BY ZouEJuI8AswT6yZyKqHUU qVMAjK7LmzGIz ZRrgU100GVetJqM7ZDNyk yQwW1LzTYEiiXbiSkD2z6 Q4Vh6IN8T4XH34BN59mWI mb4T3iZN0C2Qs PZPantsibgfriHI0YLRzC YEelK51Gi3aoPuaOx7oPZ YuWYI4ADQoiIRtQ2ShzK5 yOiAjMDAwMDAw V2ExmRIyDSukF230EMjwY sF2IYEoubOcV1JoNQNagI ifSwR0m4X3Vm0ECSj0SO4 9RT36lVAcr1R7 fOS1H1MjFVDcrlmrlrvlo NI2SKPbKMPfyW65Oy2hlG tfHn8zTSNnPJE5DFMkmTH vF5BjpQ2yOfUq RCVdNWUlD2ZciIYpXQalM 561FFosNuG8KHJbfyTvL3 SnLYYqaLfxCxS6o7Q1Ag7 PSREtPP83PYE3 vMK6LJ21OC07B8KfTcoyg GFibGU+PHRhYmxlIHdpZH RoPScxMDAlJyBzdHlsZT0 iWj0hYXPhFTJp fYawcLBoJdXkx4bhVQHxL YcwFK0ouFrnC3IjmCU0HO Hdz5n6Ul49Q63oP1BgfFN +FGNmtMR0oTG2 lN5nVsUoVhV7SPxzR783N xPcgAScEsshv5nkc2qwuH l8KiJ0GLMaemSzfXgxSNT 4g9OzFh52V49s IHdpZHRoPSIxNSUiIHZhb Nizyw0vyY7tGu3+PGNvbC G5fBX8aR5eRyEpSxV5LId gI296FiArkVNq Cldkw1agl0nbxPn9YyJrN SKyhuTmtHzwUXC9x6DvAd 00U0EowGqpr1DrQyk6ab1 4vLSyw9F1gTT7 C7FfZLTmpmyrmUSnpNvpZ S8mWMRdzzntUUPtuY3tHR IyP6n7KhDmNcP0ETrwQ6A ncqV5SJWthTZg QYitJMD3Z92wk6Y0ASCcX TFnIFG8wVU4dY5egSdyti ogbGVmdDsgdmVydGljYWw iXFsbE453ESCy bUczTRXlrI8cNELlrHUws WifBM5bKLJorntbZeVIWw xFWSwgSkFNRVMgTTwvdGQ +ENQgQDF0tRwp NPuzAGBypZ2wAXFgU0i4W aVoTlM5WRljD3NxDAZcgd zkLi47oO4uStAfCbU8ARd zM7HmlvG4ZTNr yBXzCVrgYMM2C46id4M3S FHbMSNyGDA8aDG9eN9qwG lnbjogbGVmdDsgdmVydGl xZAdrWXojT652 VWBblUgwChC7SmHaSuJ2T Vx3V3OmUvr4FMFihSkeLB 5rnWDoTGwyCv5vsAoikAm oWY2iGQAklcmm LXQtmP8zUIJfmMXzdPixJ Y1hILWgcmpzs050ZvBjVL R0RTWdxUOuM7FuoV1xVyZ jFQMcJCJyT5Sq hTQuTBwnB616HKxtWsE0A OAlggBfG1FcBEOyqHgbMp F5r1T3Un40ZdFPGRPbsyn vdGQ+PHRkIHN0 jMjxUOqiOKTswY8jMDLqN 6p9ViIzSpQ7BZopS8ZlPB YuhaxxSf48bB3hWtToEmZ 7KKbkZ2UhctH4 WNRwkBUfZWxpAPW2G04vd 7Y9GNWoUVFiYMH1lLE3gC 1hbGlnbjogbGVmdDsgdmV ydGljYWwtYWxp T594PWUrlQdfFb8rdFK5O 4BeQbp1JPKbjExtAD7edE NlRWjvWz7glHlkbQbdLC9 wNTBpbjtwYWRk kF9sLLCjwGRkaSxqBJ8kY SVecdnbs059IuGsZIA3OE MtpLOeE0ZwvI2rKqTtIBK vLIAcC2WbxJWs CBjuW253JEoxTkJ1ASPjp cXjZ5IyBMAexUncToX5n9 J8Lm5QTQYxBDXrhSBqNjJ 3L0XsEqomeYQ+ OL51MYXzYB54qDRzcHLha 7odgSy6XpHwRJNxDHO6zM wmCOfog4GlVUXoH39eiLW jb1L8OTWzwRao eLExBfMvzKB8mT8qGOoqo axzy0elrbrnVmkzg6qdbg 41cA95X77nOZzvFIUaEVV zMCUiIHZhbGln qq7tlR7uEw6+LVAncQK4s PH1xZ0pHsQnXnU5ZTssK8 85WkYhiHBeMqapw1swg6p xcGc0TiOhJKJw pzVqfTvhVQE5r9JaGp91V 29sIHdpZHRoPSIyMCUiIH CzvYikon2dnK8tZz5+PC9 cn6wuol75gF31 dHI+JCVbELT4gYtqBHzoS SKvxP9gQDimJmX7SXZtEh HusR77fGCgGCzlNr8xkWl pbLuuZA7aWMKl kdaam901CaEnx3qoQNUte JWcRCujFAD1W13uu9C4OS EyAKPpCIE4zRM2fY5txIl nbjogbGVmdDsg ijFfoYrmZTdmZGlrX868L DLwrZcdTfQviANsW5dkzt TBFW6cPgpztRK+PHRkIHN 0eWxlPSdwYWRk qO6tJKZoG7d4PcJpAnR5Y TpuP1OtpiW5HLYegYJxEM SzcJEDyE2kajaoy4ksgjp gIzAwMDAwMDt0 DTd4NRPpuCzzVrEuJLG7O rG4IAN6aGCxcS2rkJmnzv qviV7zCxb+RklOOjwvdGQ +LMXzMQM4qEbp EGnlRFAhxT2oZRTmL5e0H sCtZtF5EJzzT1HjohJ9BV DwrMCxYAStjZHRsJ7zupc dm4wnintcPlTd QSVhTJd3XPf9GNHeyHytJ uWtGJQ5JyF5XKF1iTJieQ 5xpFeuwcuooF7eEho+TVJ OOjwvdGQ+PHRk KKJ2fTkpOYzfDJJkzW3yE BUcZ8u1VxOwBgJ2ARtiG1 ChknA6QULwcHMzQJXesLI ZeT9yibgdh9qo nvhoMyEoYKYkLPp5EOt1O TUdxYiqZxMpENH6RpM3VW S0wJHbjA6wtDvvtphapE7 wOyc+MSM3ZGE3 OY90MG67F1SuIgbgiXEdv +PHRhYmxlIHdpZHRoPS yoOQGyZzZphDqoDM9fHa8 yZGVyLWNvbGxh cHNl (more content not included)... [facility] Surgical Pathology (NOTE) -- Diagnosis -- BLADDER TUMOR, TRANSURETHRAL RESECTION: NONINVASIVE, LOW-GRADE, PAPILLARY UROTHELIAL CARCINOMA. Libertad Decker Electronically Signed Out ajb/07/24/2020 Clinical Information Pre-op Diagnosis: BLADDER TUMOR Operative Findings: BLADDER TUMOR Operation Performed: CYSTOSCOPY, TUR BLADDER TUMOR Source of Specimen 1: BLADDER TUMOR Gross Description LASHAWN MONTENEGRO BLADDER TUMOR Two pink-vo fragments, 0.2 x 0.2 x 0.1 cm and 0.8 x 0.5 x 0.3 cm. Intact, 1cs. tm Microscopic Description PROCEDURE: Transurethral resection TUMOR SITE: Bladder, not otherwise specified HISTOLOGIC TYPE: Noninvasive papillary urothelial carcinoma HISTOLOGIC GRADE: Low-grade MUSCULARIS PROPRIA PRESENCE: Present, negative for tumor LYMPH-VASCULAR INVASION: Not identified TUMOR EXTENSION: Noninvasive papillary urothelial carcinoma CAP Urinary Bladder 4020 in conjunction with AJCC 8 ed. SURGICAL PATHOLOGY CONSULTATION Patient Name: LASHAWN MONTENEGRO [facility] Rec: [id number] Path Number: [id number] [employer] [facility] ANATOMIC PATHOLOGY [address] [place] [id number] Normal [facility] Comment on above: Performed By: #### P PPVS #### [address] [address] Traffic Engineering Director: Sharif Knapp MD COVID-19 ([facility]on 07-18-2020 SARS-CoV-2 (COVID-19) RNA HEATHER+probe Ql (Unsp spec) Not detected Normal Not Detected [facility] Comment on above: Result Comment: This test result should be correlated with clinical presentations and medical history by a healthcare provider to determine its clinical significance. This assay was performed by a reverse transcriptase real-time polymerase chain reaction (rt PCR) method on the Quick Hit system. This test has been authorized only for the detection of nucleic acid from SARS-CoV-2, not for any other viruses or pathogens. This test has not been FDA cleared or approved. This test has been authorized by FDA under an Emergency Use Authorization (EUA). This test is only authorized for the duration of time the declaration on that circumstances exist justifying the authorization emergency use of in vitro diagnostic tests for detection and/or diagnosis of COVID-19 infection under section 564 (b) (1) of the Act, 21 U.S.C. 360 bbb-3 (b) (1), unless authorization is terminated or revoked sooner. 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 Unknown Normal [facility] Comment on above: Performed By: #### 2 [id number] #### [facility] [address] [place] [address] ICU Unknown Normal [facility] Comment on above: Performed By: #### 2 [id number] #### [facility] [address] [place] [address] ? NO Normal [facility] Comment on above: Performed By: #### 2 [id number] #### [facility] [address] [place] [address] Resides in a Congregate Care Setting Unknown Normal [facility] Comment on above: Performed By: #### 2 [id number] #### [facility] [address] [place] [address] Symptomatic as defined by CDC Unknown Normal [facility] Comment on above: Performed By: #### 2 [id number] #### [facility] [address] [place] [address] Physician Orderon 07-06-2020 Physician Order [id number]:127 Normal [facility] Vital Signs Date Time Vital Sign Value Performing Clinician Facility 11-10-2023 08:32-0400 Body height 182.9 cm Mary Santos MD Work Phone: [facility] 11-10-2023 08:32-0400 Body mass index (BMI) [Ratio] 23.46 kg/m2 Mary Santos MD Work Phone: [facility] 11-10-2023 08:32-0400 Body weight 78.47 kg Mary Santos MD Work Phone: [facility] 11-10-2023 08:32-0400 Diastolic blood pressure 88 mm[Hg] Mary Santos MD Work Phone: [facility] 11-10-2023 08:32-0400 Heart rate 60 /min Mary Santos MD Work Phone: [facility] 11-10-2023 08:32-0400 SaO2% (BldA) [Mass fraction] 97 % Mary Santos MD Work Phone: [facility] 11-10-2023 08:32-0400 Systolic blood pressure 138 mm[Hg] Mary Santos MD Work Phone: [facility] 09-30-2022 09:41-0400 Diastolic blood pressure 73 mm[Hg] MD Mary Santos Work Phone: [facility] 09-30-2022 09:41-0400 Heart rate 60 /min MD Mary Santos Work Phone: [facility] 09-30-2022 09:41-0400 Respiratory rate 14 /min MD Mary Santos Work Phone: [facility] 09-30-2022 09:41-0400 SaO2% (BldA) [Mass fraction] 100 % MD Mary Santos Work Phone: [facility] 09-30-2022 09:41-0400 Systolic blood pressure 152 mm[Hg] MD Mary Santos Work Phone: [facility] 09-30-2022 07:31-0400 Body height 182.88 cm MD Mary Santos Work Phone: [facility] 09-30-2022 07:31-0400 Body temperature 98.5 [degF] MD Mary Santos Work Phone: [facility] 09-30-2022 07:31-0400 Body weight 77.11 kg MD Mary Santos Work Phone: [facility] 07-23-2020 14:15-0400 Respiratory rate 20 /min Huey Alvarado MD Work Phone: [employer] Work Phone: 07-23-2020 14:00-0400 Diastolic blood pressure 72 mm[Hg] Huey Alvarado MD Work Phone: [employer] Work Phone: 07-23-2020 14:00-0400 Heart rate 59 /min Huey Alvarado MD Work Phone: [employer] Work Phone: 07-23-2020 14:00-0400 SaO2% (BldA) [Mass fraction] 100 % Huey Alvarado MD Work Phone: [employer] Work Phone: 07-23-2020 14:00-0400 Systolic blood pressure 123 mm[Hg] Huey Alvarado MD Work Phone: [employer] Work Phone: 07-23-2020 13:45-0400 Body temperature 96.8 [degF] Huey Alvarado MD Work Phone: [employer] Work Phone: 07-23-2020 11:40-0400 Body height 182.9 cm Huey Alvarado MD Work Phone: [employer] Work Phone: 07-23-2020 11:40-0400 Body mass index (BMI) [Ratio] 20.89 kg/m2 Huey Alvarado MD Work Phone: [employer] Work Phone: 07-23-2020 11:40-0400 Body weight 69.85 kg Huey Alvarado MD Work Phone: [employer] Work Phone: Encounters Encounter Date Encounter Type Care Provider Facility Start: 11-10-2023 End: 11-10-2023 Office outpatient visit 25 minutes Mary Santos MD Work Phone: [facility] Comment on above: Benign essential hyp ertension (CMS/HCC) (Primary Dx); Abdominal aortic aneurysm, without rupture, unspecified (CMS/HCC); Malignant neoplasm of bladder, unspecified (CMS/HCC); Aortic aneurysm of unspecified site, without rupture (CMS/HCC); Disorder of arteries and arterioles, unspecified (CMS/HCC); Emphysema, unspecified (CMS/HCC); 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); Atherosclerosis of aorta (CMS/HCC) Start: 11-10-2023 End: 11-10-2023 ambulatory MARY Maurer TOM Not Available Start: 05-11-2023 End: 05-11-2023 ambulatory MARY Maurer TOM Not Available Start: 05-11-2023 Patient encounter procedure Mary Santos MD Work Phone: [facility] Start: 12-26-2022 End: 12-26-2022 ambulatory MARY SANTOS Not Available Start: 12-23-2022 End: 12-23-2022 ambulatory MARY SANTOS Not Available Start: 12-04-2022 End: 12-04-2022 ambulatory Huey Alvarado Facility:[facility] Start: 12-04-2022 End: 12-04-2022 ambulatory Steffen Ng Facility:[facility] Start: 11-18-2022 End: 11-19-2022 ambulatory Huey Alvarado Facility:[facility] Start: 11-14-2022 End: 11-14-2022 ambulatory [facility] Start: 11-14-2022 End: 11-14-2022 Encounter for other preprocedural examination [facility] Start: 09-30-2022 End: 09-30-2022 ambulatory Imad Asaad Facility:[facility] Start: 09-30-2022 End: 09-30-2022 Admission to same day surgery center MD Mary Santos Work Phone: [facility] Work Phone: Start: 09-30-2022 End: 09-30-2022 ambulatory MD Mary Santos Work Phone: [facility] Work Phone: Start: 03-20-2022 End: 03-20-[address] PAT READ Facility:[facility] Start: 03-13-2022 End: 03-13-2022 ambulatory ANURADHA CARSON Facility:[facility] Start: 03-11-2022 End: 03-11-2022 ambulatory Huey Alvarado Facility:[facility] Start: 02-26-2022 End: 02-27-2022 ambulatory Huey Alvarado Facility:[facility] Start: 02-07-2022 End: 02-07-[address] PHIL MUNIZ Facility:[facility] Start: 02-06-2022 End: 02-07-2022 ambulatory Huey Alvarado Facility:[facility] Start: 12-17-2021 End: 12-18-[address] STEFFEN CHAUDHARI Facility:[facility] Start: 10-24-2021 End: 10-24-2021 ambulatory CAITIE JOYA Facility:[facility] Start: 10-22-2021 End: 10-22-2021 Departed Referred MD Huey Alvarado Work Phone: [facility] Start: 07-23-2020 End: 07-23-2020 ambulatory HUEY ALVARADO [facility] Start: 07-23-2020 End: 07-23-2020 Subsequent hospital visit by physician Huey Alvarado MD Work Phone: [facility] Procedures Date Procedure Procedure Detail Performing Clinician Start: 09-30-2022 Screening colonoscopy M D Mary Santos Work Phone: Start: 09-30-2022 Colonoscopy Mary Santos MD Work Phone: Start: 07-23-2020 Ecg routine ecg w/le ast 12 lds w/i&r Marito Garcia MD Work Phone: Plan of Treatment Date Care Activity Detail Author Start: 09-30-2032 Screening for malign ant neoplasm of colon [facility] Start: 11-09-2024 Influenza vaccination Influenza Vacc ine (#1) [facility] Comment on above: Postponed from 10/10 (Other Medical Reasons) Start: 12-27-2023 Screening for malign ant neoplasm of colon FIT-DNA [facility] Start: 12-12-2023 Pneumococcal Vaccine : 65+ Years (1 of 2 - PCV) Pneumococcal Vaccine: 65+ Years (1 of 2 - PCV) [facility] Comment on above: Postponed from 09/07 (Patient Refused) Start: 11-10-2023 End: 11-09-2024 US Abdominal Aorta for screening Vascular US abdominal aorta anuerysm AAA screening Imaging Routine Abdominal aortic aneurysm, without rupture, unspecified (CMS/HCC) Aortic aneurysm of unspecified site, without rupture (CMS/HCC) Disorder of arteries and arterioles, unspecified (CMS/HCC) Emphysema, unspecified (CMS/HCC) Expected: 11/10/2023, Expires: 11/09/2024 [facility] Work Phone: Comment on above: Expected: 11/10/2023 , Expires: 11/09/2024 Start: 09-30-2022 [facility] Start: 10-10-2020 Influenza vaccination Flu vacc ine (Season Ended) [facility] [employer] Work Phone: Start: 1967 COVID-19 Vaccine (1) COVID-19 Vaccin e (1) [employer] Work Phone: Start: 1955 Screening for malign ant neoplasm of colon [facility] EKG 12 Lead EKG 12 Lead ECG STAT 07/23/2020 10:43 AM EDT [facility] Work Phone: Oxygen therapy [[facility] Data Set] Initiate Oxygen Therapy Protocol Respiratory Care Routine Daily until discontinued starting 07/23/[address] [employer] [facility] [address] Phone: Comment on above: Daily until disconti nued starting 07/23/2020 Patient Education Colon polyps H emorrhoids (DC) Diverticulosis (DC) [facility] Work Phone: Phase I & II - meter ed glucose Phase I & II - metered glucose Point of Care Testing Routine As Needed until discontinued [facility] 07[facility]23[facility]2020 [facility]: Comment on above: As Needed until disc ontinued starting 07/23/2020 Surgical Pathology Surgical Path ology Lab Routine Release Upon Ordering for 1 Occurrences starting 07/23/2020 [facility]: Comment on above: Release Upon Orderin g for 1 Occurrences starting 07/23/2020 End: 07-23-2020 Surgical Pathology Surgical Pathology Lab Routine Once for 1 Occurrences starting 07/23/2020 until 07/23/[address] [employer] Phone: Comment on above: Once for 1 Occurrenc es starting 07/23/2020 until 07/23/2020 Immunizations Immunization Date Immunization Notes Care Provider Fa cility 07-07-2020 diphtheria, tetanus toxoids and pertussis vaccine Mary Santos MD Work Phone: [facility] [employer] Work Phone: Payers Date Payer Category Payer Medicare [facility] MED[facility] ADVANTAGE [facility] MEDICARE ADVANTAGE [id number] 2023-Present [address] [place] [address] [id number] 2023 Medicare [id number] 2022 Self-pay 2014 Unknown [id number] 1959 Medicare [id number] 1955 Unknown [id number] [id number] 1956 Unknown [id number] 2.16.840.1.430013.3.579.2.593 1956 Unknown [id number] 2.16.840.1.847217.3.579.2.593 1956 Unknown [id number] 2.16.840.1.697001.3.579.2.593 1956 Unknown [id number] 2.16.840.1.306084.3.579.2.593 1956 Unknown [id number] 2.16.840.1.114127.3.579.2.593 1956 Unknown [id number] 2.16.840.1.961427.3.579.2.718 1956 Unknown [id number] 2.16.840.1.558401.3.579.2.718 1956 Unknown [id number] 2.16.840.1.972022.3.579.2.718 1956 Unknown [id number] 2.16.840.1.252340.3.579.2.718 1956 Unknown [id number] 2.16.840.1.708828.3.579.2.718 1956 Unknown [id number] 2.16.840.1.800710.3.579.2.125 9 1956 Unknown [id number] 2.16.840.1.524697.3.579.2.125 9 1956 Unknown [id number] 2.16.840.1.259109.3.579.2.125 9 1956 Unknown [id number] 2.16.840.1.910999.3.579.2.125 9 Unknown [id number] 2.16.840.1.559495.3.579.2.531 Unknown [id number] [id number] Social History Date Type Detail Facility Start: 07-23-2020 Tobacco smoking status [facility] Current every day smoker [employer] [facility] [address] Phone: Start: 07-23-2020 End: 07-21-2022 Tobacco use and exposure Never used [employer] Start: 07-23-2020 End: 11-10-2023 Alcohol intake Current drinker of alcohol (finding) [employer] [address] Phone: Start: 07-23-2020 Alcohol Comment wine coolers [address] [facility] [address] Phone: Start: 1955 Sex Assigned At Not on file [facility] [address] Phone: Exposure to SARS-CoV -2 (event) Not sure [employer] Start: 1955 Sex Assigned At Male [facility] Start: 07-21-2022 End: 09-30-2022 Tobacco smoking status PAIS Ex-smoker (finding) [facility] End: 11-09-2021 History of tobacco use Current smoker [facility] End: 11-09-2021 History of tobacco use Cigarette Smoker [facility] Start: 05-11-2023 End: 11-10-2023 Alcoholic beverage intake [facility] Start: 07-21-2022 End: 05-11-2023 Alcohol Use Disorder Identification Test - Consumption [AUDIT-C] [facility] How often to you hav e a drink containing alcohol? 2-3 time sa week [facility] How many standard dr inks containing alcohol do you have on a typical day? 1 or 2 [facility] How often do you hav e 6 or more drinks on 1 occasion? 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 Alvarado Associated Problem(s): Abdominal aortic aneurysm, without rupture, unspecified (CMS/HCC) F/up with vascular surgeon Associated Problem(s): Atherosclerosis of aorta (CMS/HCC) Continue smoking cessation Associated Problem(s): Disorder of arteries and arterioles, unspecified (CMS/HCC) US ordered Associated Problem(s): Emphysema, unspecified (CMS/HCC) No smoking now Associated Problem(s): Benign essential hypertension (CMS/HCC) Our specific goals, for your hypertension, is to keep your blood pressure less than 140/90, and the importance of weight control. We made recommendations on how to control your blood pressure, and minimize your risk of these copmplications. We also discussed your current barriers to a healthy living and importance of healthy diet and exercise. Prior to your visit today we have reviewed your chart and formed a plan to assist with providing you the best possible care. We reviewed the possible complications of hypertension including, stroke, heart failure and kidney impairment. In addition, we discussed your medications, the importance of taking them as prescribed. DASH diet handouts Images from the original note were not included. Subjective Patient ID: Lashawn Montenegro is a 68 y.o. male who presents for Hypertension. Pt has concerns with his BM PT BP today is 152/98 Hypertension This is a chronic problem. The current episode started more than 1 year ago. The problem has been gradually improving since onset. The problem is controlled. Pertinent negatives include no chest pain or shortness of breath. There are no associated agents to hypertension. The current treatment provides mild improvement. There are no compliance problems. Current Outpatient Medications on File Prior to Visit Medication Sig Dispense Refill albuterol HFA 90 mcg/act inhaler INHALE 2 PUFFS BY MOUTH EVERY 4 HOURS NEEDED FOR SHORTNESS OF BREATH OR WHEEZING aspirin (ASPIR) 81 MG EC tablet Take 1 tablet by mouth 1 (one) time each day at the same time. cyanocobalamin (Vitamin B-12) 1000 MCG tablet Take 1,000 mcg by mouth in the morning. folic acid (Folvite) 1 MG tablet Take 1 tablet (1,000 mcg) by mouth Daily 100 tablet 3 levothyroxine (Synthroid, Levoxyl) 88 MCG tablet TAKE 1 TABLET BY MOUTH ONCE DAILY IN THE MORNING BEFORE MEAL(S) 90 tablet 0 rosuvastatin (Crestor) 10 MG tablet Take 1 tablet (10 mg) by mouth in the morning. 100 tablet 3 [DISCONTINUED] lisinopril 20 MG tablet Take 1 tablet by mouth Daily as needed (Hypertension). No current facility-administered medications on file prior to visit. I have reviewed and reconciled the history and medication list with the patient today. Allergies Allergen Reactions Octacosanol Social History Tobacco Use Smoking status: Former Current packs/day: 0.00 Types: Cigarettes Quit date: 11/09/2021 Years since quittin.0 Smokeless tobacco: Never Tobacco comments: Last smoked: 6-12 months Substance Use Topics Alcohol use: Yes Alcohol/week: 2.0 standard drinks of alcohol Types: 2 Standard drinks or equivalent per week Drug use: Never Family History Problem Relation Name Age of Onset Mental illness Mother Breast cancer Mother Heart disease Father Other (Brain Tumor) Sister Kidney cancer Brother Past Medical History: Diagnosis Date Aortic aneurysm ([facility] 12/17/2021 Fusiform aneurysm of the distal abdominal aorta measuring 3.7x3.5 Atherosclerotic cardiovascular disease ([facility]) 01/01/2021 U/S shows mild fusiform aneurysmal dilation of the distal aorta, 3.6 cm; not significantly changed. Marked atherosclerotic disease causing moderate vessel narrowing History of aortic stenosis 06/14/2020 0-49% stenosis within the right and left carotid arteries, right sided mild atherosclerotic plaque, Slightly greater within the carotidbulb where there is 50% area reduction. Left sided moderate atherosclerotic plaque bordering on moderate marked within the bulb and proximal ICA resulting in 63%and 65% area reduction respectively History of thyroid irradiation Nephrolithiasis 06/15/2020 CT scan of abdomen shows non obstructing nephrolithisais 3.4 cm aortic aneurysm Personal history of medical treatment 08/21/2020 Normal ventricular function, mild atrial dilation, mild diastolic dysfunction, mild bileaflet mitral valve prolapse, normal right sided pressures Past Surgical History: Procedure Laterality Date BLADDER TUMOR EXCISION N/A 12/01/2022 Dr. Alvarado COLONOSCOPY W/ POLYPECTOMY 09/30/2022 Polyp, Diverticulosis Internal hemorrhoids CYSTOSCOPY 06/21/2020 CYSTOSCOPY 10/22/2021 TURBT CYSTOSCOPY 03/11/[address] Alvarado THYROID SURGERY radioablation Visit Vitals BP 138/88 Pulse 60 Ht 6' Wt 173 lb SpO2 97% BMI 23.46 kg/m Smoking Status Former BSA 2 m Review of Systems Constitutional: Negative for chills and fever. Respiratory: Negative for shortness of breath. Cardiovascular: Negative for chest pain. Gastrointestinal: Positive for constipation. Negative for diarrhea, nausea and vomiting. He has constipation and takes castor oil has tried Miralax with minimal relief Genitourinary: Caths 3-4 times Musculoskeletal: Negative for back pain and gait problem. Neurological: Negative. Negative for dizziness and facial asymmetry. Objective Physical Exam Vitals reviewed. Constitutional: Appearance: Normal appearance. HENT: Head: Normocephalic. Cardiovascular: Rate and Rhythm: Normal rate and regular rhythm. Pulses: Normal pulses. Pulmonary: Effort: Pulmonary effort is normal. Breath sounds: Normal breath sounds. Neurological: General: No focal deficit present. Mental Status: He is alert and oriented to person, place, and time. Psychiatric: Mood and Affect: Mood normal. 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 Alvarado Emphysema, unspecified (CMS/HCC) No smoking now Relevant Orders Vascular US abdominal aorta anuerysm AAA screening Benign essential hypertension (CMS/HCC) - Primary Our specific goals, for your hypertension, is to keep your blood pressure less than 140/90, and the importance of weight control. We made recommendations on how to control your blood pressure, and minimize your risk of these copmplications. We also discussed your current barriers to a healthy living and importance of healthy diet and exercise. Prior to your visit today we have reviewed your chart and formed a plan to assist with providing you the best possible care. We reviewed the possible complications of hypertension including, stroke, heart failure and kidney impairment. In addition, we discussed your medications, the importance of taking them as prescribed. DASH diet handouts Relevant Medications lisinopril 20 MG tablet hydroCHLOROthiazide (HYDRODiuril) 25 MG tablet Abdominal aortic aneurysm, without rupture, unspecified (CMS/HCC) F/up with vascular surgeon Relevant Orders Vascular US abdominal aorta anuerysm AAA screening Atherosclerosis of aorta (CMS/HCC) Continue smoking cessation No follow-ups on file. documented in this encounter [facility] 12-05-2022 Note [id number] Note 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 cephalexin (cephalexin 500 mg oral capsule) 1 cap(s) Oral Every 12 hours scheduled time for 3 Days. Refills: 0. cyanocobalamin (Vitamin B12 1000 mcg oral tablet) 1 tab(s) Oral every day. folic acid (folic acid 1 mg oral tablet) 1 tab(s) Oral every day. levothyroxine (levothyroxine 88 mcg (0.088 mg) oral tablet) 1 tab(s) Oral every day. rosuvastatin (rosuvastatin 10 mg oral tablet) 1 tab(s) Oral every day. traMADol (Ultram 50 mg oral tablet) 1 tab(s) Oral every 6 hours as needed as needed for pain. Refills: 0. Medication List: New Medications [facility] 1985, [address] [place], [place] [id number], [phone] cephalexin (cephalexin 500 mg oral capsule) 1 cap(s) Oral Every 12 hours scheduled time for 3 Days. Refills: 0. traMADol (Ultram 50 mg oral tablet) 1 tab(s) Oral every 6 hours as needed as needed for pain. Refills: 0. Medications to Continue That Have Not Changed Other Medications aspirin (aspirin 81 mg oral delayed release tablet) 1 tab(s) Oral every day. cyanocobalamin (Vitamin B12 1000 mcg oral tablet) 1 tab(s) Oral every day. folic acid (folic acid 1 mg oral tablet) 1 tab(s) Oral every day. levothyroxine (levothyroxine 88 mcg (0.088 mg) oral tablet) 1 tab(s) Oral every day. rosuvastatin (rosuvastatin 10 mg oral tablet) 1 tab(s) Oral every day. New Medications [facility] 1985, [address] [place], [place] [id number], [phone] cephalexin (cephalexin 500 mg oral capsule) 1 cap(s) Oral Every 12 hours scheduled time for 3 Days. Refills: 0. traMADol (Ultram 50 mg oral tablet) 1 tab(s) Oral every 6 hours as needed as needed for pain. Refills: 0. Medications to Continue That Have Not Changed Other Medications aspirin (aspirin 81 mg oral delayed release tablet) 1 tab(s) Oral every day. cyanocobalamin (Vitamin B12 1000 mcg oral tablet) 1 tab(s) Oral every day. folic acid (folic acid 1 mg oral tablet) 1 tab(s) Oral every day. levothyroxine (levothyroxine 88 mcg (0.088 mg) oral tablet) 1 tab(s) Oral every day. rosuvastatin (rosuvastatin 10 mg oral tablet) 1 tab(s) Oral every day. New Medications [facility], [address] [place], [place] [id number], [phone] cephalexin (cephalexin 500 mg oral capsule) 1 cap(s) Oral Every 12 hours scheduled time for 3 Days. Refills: 0. traMADol (Ultram 50 mg oral tablet) 1 tab(s) Oral every 6 hours as needed as needed for pain. Refills: 0. Medications to Continue That Have Not Changed Other Medications aspirin (aspirin 81 mg oral delayed release tablet) 1 tab(s) Oral every day. cyanocobalamin (Vitamin B12 1000 mcg oral tablet) 1 tab(s) Oral every day. folic acid (folic acid 1 mg oral tablet) 1 tab(s) Oral every day. levothyroxine (levothyroxine 88 mcg (0.088 mg) oral tablet) 1 tab(s) Oral every day. rosuvastatin (rosuvastatin 10 mg oral tablet) 1 tab(s) Oral every day. Comment: Lab and Radiology Results Laboratory or Other Results This Visit (last charted value for your 12/04/2022 visit) No Laboratory or Other Results This Visit DIET & ACTIVITY Patient Activity Level: Patient Diet: Patient Activity Restrictions: DISCHARGE INFORMATION Discharge Disposition: Discharge Location: DEPART REASON INCOMPLETE INFORMATION PATIENT EDUCATION INFORMATION Instructions: Follow up: DIAGNOSIS Bladder neck contracture Comment: PHYS DOC NOTES [facility] 11-19-[address] Jeffries reviews PA T information and testing results. No orders, ok to proceed with procedure. [Electronically Signed on: 11/19/2022 13:35 EDT] Maribell Shah RN [Verified on: 11/19/2022 13:35 EDT] Maribell Shah RN [facility] 11-14-2022 Note Cardiology Clinic No te Subjective Lashawn Montenegro is a 67 y.o. year old male with past medical history of abdominal aortic aneurysm incomplete right bundle branch block and carotid disease seen in follow-up Patient Active Problem List Diagnosis Abdominal aortic aneurysm (CMS/HCC) Acquired hypothyroidism Alcohol abuse Aortic aneurysm (CMS/HCC) Bladder cancer (CMS/HCC) Carotid artery disease (CMS/HCC) Chest discomfort Chronic fatigue Constipation Current every day smoker Disorder of kidney and ureter, unspecified Dyspnea Former smoker Heart disease History of hyperthyroidism Macrocytosis Macrocytosis without anemia Mitral valve disorder Nephrolithiasis Postablative hypothyroidism Pulmonary emphysema (CMS/HCC) Seasonal allergic rhinitis Syncope Family History Problem Relation Name Age of Onset Heart attack Father Social History Tobacco Use Smoking status: Former Packs/day: 0.50 Types: Cigarettes Smokeless tobacco: Never Substance Use Topics Alcohol use: Yes Comment: occasional Update: 11/14/2022 He is seen in follow-up for cardiac risk stratification for bladder surgery He is doing well, quit smoking about a year ago Denies chest pain, palpitations, lightheadedness, or syncope Review of Systems Cardiovascular: Negative for chest pain, claudication, dyspnea on exertion, irregular heartbeat, leg swelling, near-syncope, orthopnea, palpitations, paroxysmal nocturnal dyspnea and syncope. Objective Visit Vitals BP 138/70 (BP Location: Right arm, Patient Position: Sitting) Pulse 72 Ht 1.829 m (6') Wt 76.7 kg (169 lb) SpO2 97% BMI 22.92 kg/m??? Smoking Status Former BSA 1.97 m??? Physical Exam General: Awake, alert, NAD Neck: No elevated JVP. No carotid bruit Pulm: Breath sounds clear to ascultation bilaterally with no wheeze, crackles or rhonchi Cards: Regular rate and rhythm, S1, S2. No S3 or S4 gallop. Murmur: none Extr: Lower extremity edema: None. Skin: warm, dry, well perfused Neuro: A&Ox3, No gross deficits Allergies No Known Allergies Medications Current Outpatient Medications: albuterol 90 mcg/actuation inhaler, INHALE 2 PUFFS BY MOUTH EVERY 4 HOURS NEEDED FOR SHORTNESS OF BREATH OR WHEEZING, Disp: , Rfl: aspirin 81 mg chewable tablet, Chew 81 mg., Disp: , Rfl: cyanocobalamin (Vitamin B-12) 1,000 mcg tablet, Take 1,000 mcg by mouth in the morning., Disp: , Rfl: folic acid (Folvite) 1 mg tablet, Take 1,000 mcg by mouth in the morning., Disp: , Rfl: levothyroxine (Synthroid, Levoxyl) 88 mcg tablet, Take 1 tablet by mouth., Disp: , Rfl: rosuvastatin (Crestor) 10 mg tablet, TAKE 1 TABLET BY MOUTH ONCE DAILY FOR 30 DAYS Oral for 30, Disp: , Rfl: Recent Labs Obtain labs Imaging and other tests Reviewed echocardiogram 08/21/20 Normal LVSF- EF 55%, Mild diastolic dysfunction mild atrial dilatation mild MV prolapse with mild regurg normal rt sided pressures. Routine Treadmill stess test- negative stress test, no ischemia noted. ELLISON treadmill score +6 Assessment Diagnoses and all orders for this visit: Abdominal aortic aneurysm (AAA) without rupture, unspecified part (CMS/[facility]) - CBC; Future - Comprehensive metabolic panel; Future - Lipid panel; Future Pre-op evaluation - ECG 12 lead Other specified hypothyroidism - TSH3 Reflex to FT4; Future Incomplete right bundle branch block Plan Encounter for preoperative cardiac risk stratification -Reports CT scan in July 2022 which showed stable AAA. Clinically doing well without anginal or dyspneic symptoms. Patient is able to do > 4 METS without chest pain/shortness of breath, stress test 2 years ago was negative. ECG shows SR with known incomplete RBBB without ischemic changes. Okay to proceed with recommended TUR of bladder neck without further cardiac workup. Okay to hold Aspirin as indicated for up to 7 days. 2. AAA -CT scan abdomen and pelvis 06/15/2020: 3.4 cm fusiform infrarenal abdominal aortic aneurysm. Moderate to large amount of soft and calcific atherosclerotic plaque. Will obtain recent stress test from [facility]. 3. Carotid stenosis Carotid ultrasound 06/14/2020: Less than 50% flow stenosis in both carotid arteries, clinically stable. Continue Aspirin and statin therapy. Follow up in about 1 year (around 11/15/2023). Margarito Garibay APRN-DEE [facility] 11-14-2022 Note Patient here for radha elif clearance. He is scheduled 12/04/2022 for bladder surgery with Dr. Alvarado at [facility]. He denies chest pain, palpitations, and SOB at rest. He was prescribed lisinopril in the ED in July 2022 but doesn't take it anymore due to hypotension. He has quit smoking since last visit. Review of Systems Cardiovascular: Positive for dyspnea on exertion. [facility] 09-30-2022 Procedure note [facility] 03-12-2022 Note [id number] Note [id number] Note [facility] SURGERY Clinical Discharge Summary PERSON INFORMATION Name LASHAWN MONTENEGRO Age 66 Years 1955 Sex MALE Language Mongolian PCP MARY SANTOS MD Marital Status [facility] Service Ambulatory Surgery Acct# Arrival 03/11/2022 07:37:13 Visit Reason SURGERY - CYSTO [place] Acuity LOS 022 00:21 Address: [address] [address] Comment: PROVIDER INFORMATION VITALS INFORMATION Vital Sign Triage Latest Temp Oral Temp Temporal Temp Intravascular Temp Axillary Temp Rectal 02 Sat 100 % 100 % Respiratory Rate Peripheral Pulse Rate Apical Heart Rate Blood Pressure / 85 mmHg / 81 mmHg Comment: MEDICAL INFORMATION Allergy Info: No known allergies Prescriptions Given: aspirin (aspirin 81 mg oral delayed release tablet) 1 tab(s) Oral every day. cephalexin (!-Keflex 500 mg oral capsule) 1 cap(s) Oral Every 8 hours. Refills: 0. cyanocobalamin (Vitamin B12 1000 mcg oral tablet) 1 tab(s) Oral every day. folic acid (folic acid 1 mg oral tablet) 1 tab(s) Oral every day. levothyroxine (levothyroxine 88 mcg (0.088 mg) oral tablet) 1 tab(s) Oral every day. rosuvastatin (Crestor 10 mg oral tablet) 1 tab(s) Oral every day. tamsulosin (tamsulosin 0.4 mg oral capsule) 1 cap(s) Oral every day. traMADol (Ultram 50 mg oral tablet) 1 tab(s) Oral every 6 hours as needed as needed for pain. Refills: 0. Medication List: New Medications [facility], [address] [place], [place] [id number], [phone] cephalexin (!-Keflex 500 mg oral capsule) 1 cap(s) Oral Every 8 hours. Refills: 0. traMADol (Ultram 50 mg oral tablet) 1 tab(s) Oral every 6 hours as needed as needed for pain. Refills: 0. Medications to Continue That Have Not Changed Other Medications aspirin (aspirin 81 mg oral delayed release tablet) 1 tab(s) Oral every day. cyanocobalamin (Vitamin B12 1000 mcg oral tablet) 1 tab(s) Oral every day. folic acid (folic acid 1 mg oral tablet) 1 tab(s) Oral every day. levothyroxine (levothyroxine 88 mcg (0.088 mg) oral tablet) 1 tab(s) Oral every day. rosuvastatin (Crestor 10 mg oral tablet) 1 tab(s) Oral every day. tamsulosin (tamsulosin 0.4 mg oral capsule) 1 cap(s) Oral every day. New Medications [facility], [address] [place], [place] [id number], [phone] cephalexin (!-Keflex 500 mg oral capsule) 1 cap(s) Oral Every 8 hours. Refills: 0. traMADol (Ultram 50 mg oral tablet) 1 tab(s) Oral every 6 hours as needed as needed for pain. Refills: 0. Medications to Continue That Have Not Changed Other Medications aspirin (aspirin 81 mg oral delayed release tablet) 1 tab(s) Oral every day. cyanocobalamin (Vitamin B12 1000 mcg oral tablet) 1 tab(s) Oral every day. folic acid (folic acid 1 mg oral tablet) 1 tab(s) Oral every day. levothyroxine (levothyroxine 88 mcg (0.088 mg) oral tablet) 1 tab(s) Oral every day. rosuvastatin (Crestor 10 mg oral tablet) 1 tab(s) Oral every day. tamsulosin (tamsulosin 0.4 mg oral capsule) 1 cap(s) Oral every day. New Medications [facility], [address] [place], [place] [id number], [phone] cephalexin (!-Keflex 500 mg oral capsule) 1 cap(s) Oral Every 8 hours. Refills: 0. traMADol (Ultram 50 mg oral tablet) 1 tab(s) Oral every 6 hours as needed as needed for pain. Refills: 0. Medications to Continue That Have Not Changed Other Medications aspirin (aspirin 81 mg oral delayed release tablet) 1 tab(s) Oral every day. cyanocobalamin (Vitamin B12 1000 mcg oral tablet) 1 tab(s) Oral every day. folic acid (folic acid 1 mg oral tablet) 1 tab(s) Oral every day. levothyroxine (levothyroxine 88 mcg (0.088 mg) oral tablet) 1 tab(s) Oral every day. rosuvastatin (Crestor 10 mg oral tablet) 1 tab(s) Oral every day. tamsulosin (tamsulosin 0.4 mg oral capsule) 1 cap(s) Oral every day. Comment: Lab and Radiology Results Laboratory or Other Results This Visit (last charted value for your 03/11/2022 visit) No Laboratory or Other Results This Visit DIET & ACTIVITY Patient Activity Level: Patient Diet: Patient Activity Restrictions: DISCHARGE INFORMATION Discharge Disposition: Discharge Location: DEPART REASON INCOMPLETE INFORMATION PATIENT EDUCATION INFORMATION Instructions: Follow up: With: Address: When: Huey Alvarado MD DIAGNOSIS 1:Incomplete bladder emptying Comment: PHYS DOC NOTES [facility] 12-19-2021 Note Reviewed Abd US for Abd aneurysm evaluation- 12/17/21- remains stable- 3.7 x 3.5cm Previously on CT abd was CT 06/2020- was 3.4 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 Continue b/p management and continue all medications. RTC as scheduled [facility] 07-23-2020 Hospital Discharge instructions Carole Lewis RN - 07/23/2020 Discharge Instructions for TURBT Patient will be discharged with no chacon catheter. Blood Thinners: Resume aspirin on Thursday07/23/20 No heavy lifting, >10 lbs for today Pt should avoid strenuous activity for today Pt should walk moderately at home Pt ok to shower Pt may resume diet as tolerated Pt should take prescriptions as directed No driving while on narcotics Please call attending physician or hospital boring machine set up operator with questions Call or Present to ED if fever (> 101F), intractable nausea vomiting or pain. Pt should follow up with Dr. Alvarado, in 2 weeks, call to confirm appointment No alcoholic beverages, no driving or operating machinery, no making important decisions for 24 hours. You may have a normal diet but should eat lightly day of surgery. Drink plenty of fluids. Urinate within 8 hours after surgery, if unable to urinate call your doctor Call your doctor for the following: Chills Temperature greater than 101 Pain that is not tolerable despite taking pain medicine as ordered documented in this encounter [employer] Work Phone: Evaluation note No assessment inform [facility] Work Phone: Evaluation note Diagnosis Benign essential hypertension (CMS/HCC)- Primary Essential hypertension, benign Abdominal aortic aneurysm, without rupture, unspecified (CMS/HCC) Malignant neoplasm of bladder, unspecified (CMS/HCC) Aortic aneurysm of unspecified site, without rupture (CMS/HCC) Disorder of arteries and arterioles, unspecified (CMS/HCC) Emphysema, unspecified (CMS/HCC) 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 Atherosclerosis of aorta (CMS/HCC) Atherosclerosis of aorta documented in this encounter [facility] physical note Author Eldon Castrejon [facility] September 30, 2022 8:38am Note Date/Time September 30, 2022 8: 38am [facility] [address] [place] [address] Gastroenterology H&P Signed Patient: Lahsawn Montenegro MR#: [id number] : 1955 Acct:[id number] Age/Sex: 67 / M Adm Date: 3 Loc: Room: Type: [facility] Attending Dr: Eldon Castrejon MD Copies to: MD Mary Hayes MD~ Date of Service: 09/30/2022 HISTORY & PHYSICAL: Patient's history with special attention to the cardiovascular, pulmonary systems and the current problem was reviewed with the patient immediately prior to the procedure. Present medications and doses reviewed in the EMR. Allergies and pertinent laboratory tests were also reviewedat this time in the EMR. The physical examination, as below, was then performed. Indication, assessment and HPI: 67-year-old man here for screening colonoscopy Family history of GI malignancy? No PHYSICAL EXAMINATION Mouth and Pharynx : Moist mucus membranes, normal dentition Cardiac: Regular rate, regular rhythm Pulmonary: Clear to auscultation bilaterally, no wheezing Neurological: Alert and oriented x3, no focal deficits noted Abdomen: Abdomen soft, non-tender REVIEW OF SYSTEMS Constitutional: Denies malaise, fevers Cardiovascular: Denies chest pain, palpitations Respiratory: Denies shortness of breath, wheezing Gastrointestinal: Per HPI Genitourinary: Denies dysuria, polyuria Musculoskeletal: Denies joint swelling, joint stiffness Neurological: Denies numbness, tingling Integumentary: Denies rashes, skin lesions Endocrine: Denies fatigue, weight loss Written informed consent obtained from the patient. Risks (including but not limited to perforation, infection, bloating, bleeding, need for emergent surgeryand loss of life), benefits and alternatives explained and questions answered. The patient verbalized understanding. Based on history patient is an appropriate candidate for the procedure. Eldon Castrejon M.D. Documented By: Eldon Castrejon MD 09/30/22837 Signed By: <Electronically signed by Eldon Castrejon MD> 09/30/22837 [facility] Work Phone: Hospital Discharge instructions Additional Instructions DISCHARGE INSTRUCTIONS FOR COLONOSCOPY WHAT TO EXPECT: - You may feel full, gassy or cramping after your procedure. In some cases, this may be from a few hours to a day. Walking may help relieve the discomfort. - If you have polyp(s) removed you may note some minor bloody discharge after your first bowel movements. - You should begin to recover from anesthesia within 1 hour of the procedure, however may feel groggy for the next 24 hours. DO's AND DON'Ts: - Call your doctor right away if you have a hard abdomen, severe pain, are passing lots of bright red blood or clots. - Call your doctor if you develop any rashes, hives or difficulty breathing. - Let your doctor know if you have not had a bowel movement by 3 days after your procedure. - If you take 81 mg aspirin for your heart it is safe to resume this medication. - If you take other blood thinner medications your doctor will instruct you when these can safely be resumed. - Do NOT drive for 24 hours. - Do NOT operate machinery such as power tools, [employer] mowers, [employer], sewing machines, etc. for 24 hours. - Avoid alcoholic beverages and drugs for allergies, nerves, or sleep. - Do NOT stay alone. Do NOT leave your child unattended. - Do NOT make important personal or business decisions or sign any legal documents. - Eat solid foods and drink liquids in smaller amounts than usual until normal appetite returns. If you should experience an upset stomach, liquids high in sugar content (soda, Rogelio-Aid, non-acid juices) are recommended. - You can resume normal activities tomorrow. FOLLOW UP & RECOMMENDATIONS: -Notify the doctor if you have any problems. -Repeat colonoscopy based on polyp pathology -Follow up with PCP. -Office number [phone]. [facility] Work Phone: Summary Purpose Family History No Family History Records Found Relationship Condition Age at Onset Recorded Date/T sharmaine Not Specified Malignant neoplasm of breast Unknown sister Malignant neoplasm of cervix Unknown father Myocardial infarction Unknown brother Malignant neoplasm Unknown Advance Directives No Advanced Directives Records Found Advance Directive Response Recorded Date/ Time Advance Directives No September 26, 2022 2:12pm Chief Complaint and Reason for Visit Chief Complaint Screening Reason for Referral Specialty Diagnoses / Procedures Referred By Contac t Referred To Contact Radiology / Osteopathic Medicine Diagnoses Abdominal aortic aneurysm, without rupture, unspecified (CMS/HCC) Aortic aneurysm of unspecified site, without rupture (CMS/HCC) Disorder of arteries and arterioles, unspecified (CMS/HCC) Emphysema, unspecified (CMS/HCC) Procedures Vascular US abdominal aorta anuerysm AAA screening Mary Santos MD [address] [facility] [address] [place] [address] Referral ID Status Reason Start Date Expiration Date V isits Requested Visits Authorized [id number] Incomplete 11/10/2023 05/08/2024 1 1 Additional Source Comments Reason for Visit (unrecogniz ed section and content) Status Reason Specialty Diagnoses / Procedures Referre d By Contact Referred To Contact Diagnoses Bladder tumor BLADDER TUMOR Procedures LA CYSTOURETHROSCOPY,FULG UR <.5CM LESN CYSTOSCOPY, TUR BLADDER TUMOR, GYRUS Huey Alvarado MD [address] [place] [address] [facility] Reason Comments Hypertension Ordered Prescriptions (unrec ognized section and content) Prescription Sig Dispensed Refills Start Date End Da te Hyoscyamine Sulfate SL (LEVSIN/SL) 0.[address] 0.125 mLs under the tongue 3 times daily as needed (bladder spasms) 120 each 0 07/23/2020 07/28/2020 Scheduled Active and Recently Administ ered Medications (unrecognized section and content) Medication Order 07/21/2020 07/22/2020 07/23/2020 ceFAZolin (ANCEF) 2000 mg in dextrose 5 % 50 mL IVPB (COMPLETED) 2,000 mg, Intravenous, PRODUCTION ILLUSTRATOR, 1 dose, First dose on Thu07/23/20 at 1130 1240 (Given - Provid er: Tang Gonzalez, ALFRED - HEADER MACHINE OPERATOR) Continuous Medication Order 07/21/2020 07/22/2020 07/23/2020 lactated ringers infusion Intravenous, at 100 mL/hr, CONTINUOUS, Starting on Thu07/23/20 at 1215, Pre-op (day of surgery) 1159 (New Bag - Prov ider: Gisele Sewell RN) PRN Medication Order 07/21/2020 07/22/2020 07/23/2020 HYDROmorphone (DILAUDID) injection 0.25 mg 0.25 mg, Intravenous, EVERY 5 MIN PRN, Pain Moderate (4-6), Starting on Thu07/23/20 at 1228, For 4 doses, Phase I - Initial therapy for moderate pain., PACU only HYDROmorphone (DILAUDID) injection 0.5 mg 0.5 mg, Intravenous, EVERY 5 MIN PRN, Pain Severe (7-10), Starting on Thu07/23/20 at 1228, For 2 doses, Phase I - Secondary therapy to be used after all initial severe pain medication doses have been administered., PACU only sodium chloride 0.9 % irrigation (COMPLETED) CONTINUOUS PRN, Starting on Thu07/23/20 at 1251, Intra-op 1251 (New Bag - Prov ider: Huey Alvarado MD - Comment: For cysto irrigation) sterile water for irrigation (CANCELED) PRN, Starting on Thu07/23/20 at 1252, Intra-op 1252 (Given - Provid er: Huey Alvarado MD - Comment: Poured to back table.) (unrecognized sect ion and content) No Status Records FoundNo Status Records FoundNo Status Records FoundNo Status Records FoundNo Status Records FoundNo Status Records FoundNo Status Records FoundNo Status Records Found INFORMATION SOURCE (unrecogn ized section and content) DATE CREATED AUTHOR 07/25/2020 [facility] DATE CREATED AUTHOR AUTHOR'S ORGANIZ ATION 07/29/2020 [facility] DATE CREATED AUTHOR AUTHOR'S ORGANIZ ATION 06/27/2021 [facility] DATE CREATED AUTHOR AUTHOR'S ORGANIZ ATION 03/20/2022 [facility] DATE CREATED AUTHOR AUTHOR'S ORGANIZ ATION 11/17/2022 [facility] DATE CREATED AUTHOR AUTHOR'S ORGANIZ ATION 12/09/2022 [facility] DATE CREATED AUTHOR AUTHOR'S ORGANIZ ATION 12/13/2022 [facility] [facility] DATE CREATED AUTHOR AUTHOR'S ORGANIZ ATION 11/11/2023 [facility] EPIC Care Teams (unrecognized sec tion and content) Team Status: Inactive Member Role Status Dates Huey Alvarado MD Attending Provider Active Team Status: Active Member Role Status Dates Mary Santos MD Primary Care Provider Active Team Status: Inactive Member Role Status Dates Eldon Castrejon MD Attending Provider Active Mary Santos MD Primary Care Provider Active [facility] Specialist Relationship Specialty Start Date End Date Mary Santos MD [address] [facility] [address] [place] [address] PCP - General Family Medicine 06/27/22 Mary Santos MD [address] [facility] [address] [place] [address] PCP - Chilango RODRIGEZ 02/09/23 Goals (unrecognized section and content) Goals may be documented in a n alternate section FOR RECORDS PERTAINING TO PATIENTS WHO ARE OR HAVE BEEN ENROLLED IN A CHEMICAL DEPENDENCY/SUBSTANCEABUSE PROGRAM, SOME INFORMATION MAY BE OMITTED. This clinical summary was aggregated from multiple sources. Caution should be exercised in using it in the provision of clinical care. This summary normalizes information from multiple sources, and as a consequence, information in this document may materially change the coding, format and clinical context of patient data. In addition, data may be omitted in some cases. CLINICAL DECISIONS SHOULD BE BASED ON THE PRIMARY CLINICAL RECORDS. [employer] provides no warranty or guarantee of the accuracy or completeness of information in this document.
--- NOTE | 2023-11-20 07:44 | US_ITS ---
[address] [address] Patient Name: LASHAWN MONTENEGRO MRN: [id number] date: 1955 Sex: M Assigned Patient Location: US Current Patient Location: Accession/Order Number: [id number] Exam Date: 11/20/2023 07:50 Report Date: 11/20/2023 08:42 At the request of: MARY SANTOS Procedure: US aorta EXAM: US aorta HISTORY: Abdominal Aortic Aneurysm COMPARISON: None. TECHNIQUE: Grayscale, color and Doppler FINDINGS: Proximal aorta: 3.9 x 4.3 cm Mid aorta: 3.7 x 3.6 m Distal aorta: 2.9 x 2.8 cm Right common iliac artery: 1.5 x 1.5 cm Left common iliac artery: 1.5 x 1.4 cm US/US aorta IMPRESSION: Aneurysm of the abdominal aorta up to 3.9 x 4.3 cm Electronically authenticated by: STEFFEN CHAUDHARI Date: 11/20/2023 08:42
== END 2023-11-20 07:36 | disposition home or self-care (01) ==
LOC: US 07:36
PROVIDERS: PCP Family Medicine; Visit Provider Family Medicine
DX: I71.40 Abdominal aortic aneurysm, without rupture, unspecified (principal); I71.9 Aortic aneurysm of unspecified site, without rupture; I77.9 Disorder of arteries and arterioles, unspecified; J43.9 Emphysema, unspecified
CPT/HCPCS: 76706

== ENCOUNTER 2024-01-17 10:12 | Emergency (ER) | payer MEDICARE, SELFPAY ==
[2024-01-17 10:20] VITALS: BP 128/84; PULSE 94; TEMP 36.5; O2SAT 98; BMI 23.7
--- NOTE | 2024-01-17 10:31 | ED_ITS ---
HPI - Wound/Laceration General Chief Complaint: Wound/Laceration Stated Complaint: L HAND LACERATION Time Seen by Provider: 01/17/24 10:22 Source: patient Mode of arrival: walk-in Limitations: no limitations History of Present Illness HPI narrative: 68-year-old male presents for an injury to his left thumb. He was using a table saw just before coming into the emergency department and it cut off a portion of the distal aspect of his thumb. There was some bleeding which has now stopped. No other injury was sustained. He had a tetanus shot 2 or 3 years ago. Related Data Home Medications ?Medication ?Instructions ?Recorded ?Confirmed folic acid 1 mg tablet 1 mg PO DAILY 07/17/22 01/17/24 levothyroxine 88 mcg tablet 88 mcg PO DAILY 07/17/22 01/17/24 rosuvastatin 10 mg tablet 10 mg PO DAILY 07/17/22 01/17/24 hydrochlorothiazide 25 mg tablet 25 mg PO DAILY 01/17/24 01/17/24 Previous Rx's ?Medication ?Instructions ?Recorded lisinopril 20 mg tablet 20 mg PO DAILY #30 tabs 07/17/22 albuterol sulfate 90 mcg/actuation 2 inh inhalation Q4H PRN shortness 07/19/22 aerosol inhaler of breath or wheezing #8.5 grams cephalexin 500 mg capsule 500 mg PO TID 7 days #21 caps 01/17/24 Allergies Allergy/AdvReac Type Severity Reaction Status Date / Time No Known Drug Allergies Allergy Verified 01/17/24 10:19 Review of Systems ROS Narrative A ten point review of systems is negative except as noted above. [facility] Medical History (Updated 01/17/24 @ 10:50 by Luis De Los Santos MD) Hx of bladder cancer ?Z85.51 - Personal history of malignant neoplasm of bladder (ICD-10) Hx of thyroid irradiation ?Z92.3 - Personal history of irradiation (ICD-10) Social History Smoking status: Former smoker Little interest or pleasure in doing things: not at all Feeling down, depressed, or hopeless: not at all Exam Narrative Exam Narrative: Nurses note and vital signs reviewed and patient is not hypoxic. General: The patient appears well and in no apparent distress. Patient is resting comfortably on cart. Skin: Warm, dry, no pallor noted. There is no rash noted. Head: Normocephalic, atraumatic Eye: Normal conjunctiva, no drainage Ears, Nose, Mouth, and Throat: oral mucosa is moist. Nares patent. Cardiovascular: Regular Rate and Rhythm Respiratory: Patient is in no distress, no accessory muscle use, lungs are clear to auscultation, no wheezing, rales or rhonchi Back: non-tender GI: Nontender Musculoskeletal: He has an injury to the left thumb. There is avulsion of skin and tissue at the distal aspect. There is no active bleeding and it is at a 45 degree angle. Neurological: A&O, normal speech Psychiatric: Cooperative Constitutional Vital Signs, click to edit/add: Last Vital Signs Temp 97.7 F 01/17/24 10:20 Pulse 94 H 01/17/24 10:20 Resp 18 01/17/24 10:20 BP 128/84 01/17/24 10:20 Pulse Ox 98 01/17/24 10:20 O2 Del Method Room Air 01/17/24 10:20 Course Vital Signs Vital signs: Vital Signs Temperature 97.7 F 01/17/24 10:20 Pulse Rate 94 H 01/17/24 10:20 Respiratory Rate 18 01/17/24 10:20 Blood Pressure 128/84 01/17/24 10:20 Pulse Oximetry 98 01/17/24 10:20 Oxygen Delivery Method Room Air 01/17/24 10:20 Temperature 97.7 F 01/17/24 10:20 Pulse Rate 94 H 01/17/24 10:20 Respiratory Rate 18 01/17/24 10:20 Blood Pressure 128/84 01/17/24 10:20 Pulse Oximetry 98 01/17/24 10:20 Oxygen Delivery Method Room Air 01/17/24 10:20 MDM - Wound/Laceration MDM Narrative Medical decision making narrative: The patient has skin avulsion. Adaptic and tube gauze were applied. Sutures are not indicated at this point. Appointment made to see Dr. Dang tomorrow at 10:45 AM, January 17. The possible need for a skin flap was discussed with the patient. Differential Diagnosis Differential diagnosis: Likely laceration and avulsion of skin Imaging Data Left thumb x-ray: My impression: No bony injury Discharge Plan Discharge Chief Complaint: Wound/Laceration Clinical Impression: Avulsion of skin of left thumb Patient Disposition: Home, Self-Care Time of Disposition Decision: 10:49 Condition: Good Mode of Transportation: Private Vehicle Prescriptions / Home Meds: New cephalexin 500 mg capsule 500 mg PO TID 7 Days Qty: 21 0RF No Action hydrochlorothiazide 25 mg tablet 25 mg PO DAILY folic acid 1 mg tablet 1 mg PO DAILY rosuvastatin 10 mg tablet 10 mg PO DAILY levothyroxine 88 mcg tablet 88 mcg PO DAILY lisinopril 20 mg tablet 20 mg PO DAILY Qty: 30 0RF albuterol sulfate 90 mcg/actuation HFA aerosol inhaler 2 inh inhalation Q4H PRN (Reason: shortness of breath or wheezing) Qty: 8.5 0RF Print Language: Colombian Instructions: Acute Wounds (ED) Referrals: MARY SANTOS [Primary Care Provider] - 1 week Chau Dang MD [Physician] - 01/18/24 10:45 am
--- NOTE | 2024-01-17 10:31 | XR_ITS ---
The [address] [address] Patient Name: LASHAWN MONTENEGRO MRN: [id number] date: 1955 Sex: M Assigned Patient Location: ER Current Patient Location: Accession/Order Number: [id number] Exam Date: 01/17/2024 10:40 Report Date: 01/17/2024 11:22 At the request of: NICOLASA LYNN Procedure: XR finger LT min 2V EXAM: XR finger LT min 2V HISTORY: Avulsion, left thumb COMPARISON: None. TECHNIQUE: 3 views of left thumb FINDINGS and impression: There is no acute fracture or dislocation. There are 2 punctate calcific densities noted adjacent to the radial aspect of the second metacarpal shaft, may represent foreign body. Electronically authenticated by: GINA MURILLO Date: 01/17/2024 11:22
== END 2024-01-17 11:20 | disposition home or self-care (01) ==
PROVIDERS: Emergency Provider Emergency Medicine; PCP Family Medicine
DX: S61.002A Unspecified open wound of left thumb without damage to nail, initial encounter (principal); W29.8XXA Contact with other powered hand tools and household machinery, initial encounter; Z87.891 Personal history of nicotine dependence
CPT/HCPCS: 73140; 99283